=== PATIENT | male | born 1950 | race Caucasian/White ===

== ENCOUNTER 2020-06-04 08:04 | Outpatient (REF) | payer MEDICARE, SELFPAY ==
[2020-06-04 11:27] LABS: MANUAL DIFF FLAG NO
[2020-06-04 11:37] LABS: Basophils Percent Auto 0.6 % (0-2); Eosinophils Absolute Auto 0.1 X10*3/uL (0.0-0.4); Eosinophils Percent Auto 2.2 % (0-4); Hematocrit 46.4 % (42-52); Hemoglobin 15.5 g/dl (14.0-18.0); Imm Gran Abs Auto 0.01 X10*3/uL (0.00-0.03); Imm Gran Pct Auto 0.2 % (0.0-0.4); Lymphocytes Absolute Auto 1.7 X10*3/uL (1.2-4.9); Lymphocytes Percent Auto 33.9 % (20-40); Mean Corpuscular HGB Conc 33.4 g/dl (31.0-36.0); Mean Corpuscular Hemoglobin 30.9 pg (27.0-33.0); Mean Corpuscular Volume 92.4 fL (80-98); Monocytes Absolute Auto 0.5 X10*3/uL (0.1-1.2); Monocytes Percent Auto 9.6 % (2-11); Neutrophils Absolute Auto 2.6 X10*3/uL (2.0-8.3); Neutrophils Percent Auto 53.5 % (45-73); Platelet Count 286 X10*3/uL (160-400); Red Blood Count 5.02 X10*6/uL (4.60-5.80); Red Cell Distribution Width 13.2 % (11.0-16.0); White Blood Count 4.9 X10*3/uL (4.8-10.8)
[2020-06-04 11:57] LABS: Alanine Aminotransferase 27 U/L (0-40); Albumin Level 4.5 g/dL (3.5-5.0); Alkaline Phosphatase 52 U/L (39-117); Anion Gap 16 (12-20); Aspartate Amino Transferase 26 U/L (5-37); Bilirubin Total 1.7 mg/dL (0.0-1.0); Blood Urea Nitrogen 13 mg/dL (9-16); Calcium 9.2 mg/dL (8.4-10.2); Carbon Dioxide 27 mmol/L (22-29); Chloride 103 mmol/L (96-108); Cholesterol 158 mg/dL; Estimated Glomerular Filt Rate > 60; Glucose Fasting 105 mg/dL (60-99); HDL Cholesterol 46 mg/dL; LDL Cholesterol Calculated 95 mg/dl; Potassium 4.6 mmol/L (3.3-5.1); Sodium 141 mmol/L (135-145); Total Protein 6.7 g/dL (6.5-8.0); Triglycerides 89 mg/dL
[2020-06-04 12:09] LABS: Thyroid Stimulating Hormone 0.89 uIU/mL (0.32-4.0); Vitamin D 25-OH Total 20.2 ng/mL (>30)
== END 2020-06-04 08:05 | disposition home or self-care (01) ==
LOC: HO.HMGCLDS 08:04
PROVIDERS: PCP Internal Medicine; Visit Provider Internal Medicine
DX: Z00.00 Encounter for general adult medical examination without abnormal findings (principal); E55.9 Vitamin D deficiency, unspecified; E78.00 Pure hypercholesterolemia, unspecified
CPT/HCPCS: 36415; 80053; 80061; 82306; 84443; 85025

== ENCOUNTER 2021-03-07 10:21 | Outpatient (REF) | payer MEDICARE, SELFPAY ==
[2021-03-07 10:41] LABS: COVID-19 Test Positive (Negative)
== END 2021-03-07 10:22 | disposition home or self-care (01) ==
LOC: HO.LAB 10:21
PROVIDERS: Visit Provider Internal Medicine
DX: Z20.822 Contact with and (suspected) exposure to COVID-19 (principal)
CPT/HCPCS: 87635; C9803

== ENCOUNTER 2021-05-17 13:02 | Inpatient (IN) | payer MEDICARE, SELFPAY ==
[2021-05-17] VITALS (15 sets, daily range): BP systolic 120–160; BP diastolic 53–90; PULSE 60–82; RESP 12–24; TEMP 36.1–37.2; O2SAT 95–100; BMI 29.3; BMI 27.7
--- NOTE | ~2021-05-17 | MR_ITS ---
MRI OF THE BRAIN WITHOUT IV CONTRAST INDICATION: Cerebellar stroke. COMPARISON: Head and neck CTA and head CT 05/17/2021. TECHNIQUE: Multiplanar multisequence MR imaging of the brain was obtained without IV contrast. FINDINGS: There are several small acute infarcts within the right cerebellar hemisphere. There is no mass effect and there is no hemorrhagic transformation. There is no hydrocephalus, extra-axial surface collection, or herniation. The major flow voids at the skull base are preserved. There is no intracranial hemorrhage on the gradient recalled echo acquisition. The midline structures are normal. The cerebellar tonsils are normally positioned. The craniocervical junction is normal. Osseous marrow signal intensity is homogenous. The visualized soft tissues are unremarkable. MR/MR head/brain wo con IMPRESSION: - There are several small acute infarcts within the right cerebellar hemisphere. There is no mass effect and there is no hemorrhagic transformation. - Otherwise unremarkable MRI of the brain. Findings discussed with Dr. Kern at 3:04 PM on 05/17/2021.
--- NOTE | ~2021-05-17 | CT_ITS ---
CT ANGIOGRAM NECK WITH CONTRAST CT ANGIOGRAM BRAIN WITH CONTRAST CLINICAL INFORMATION: Acute vertigo. Had hand weakness. COMPARISON: CT head same day. TECHNIQUE: Test bolus sequences followed by intravenous administration 70 mL of Omnipaque 350. Helical imaging was performed in the axial plane from the thoracic inlet to the skull vertex. Delayed postcontrast imaging of the head was also performed. The data was processed at the orthopaedic technologist workstation for generation of MIP sequences. Angled MIPs and volume rendered reformatted images were also generated at an offline 3D workstation under concurrent supervision. Stenoses are assessed in accordance with NASCET criteria unless otherwise indicated. This CT examination was performed using dose optimization techniques as appropriate, variously including the following: *Automated exposure control *Adjustment of mA and/or kV according to patient size (this includes techniques or standardized protocols for targeted exams where dose is matched to indication/reason for exam; i.e. extremities or head) *Use of iterative reconstruction technique FINDINGS: BRAIN: Possible small acute infarct of indeterminate age within the right cerebellum on image 46 of series 5 and can be more definitively assessed with MRI. [There is no intracranial hemorrhage, hydrocephalus, extra-axial surface collection, midline shift, or other herniation pattern. Jarrett to white matter differentiation is diffusely maintained without evidence of an evolved acute territorial infarct. The basilar cisterns are preserved. No significant soft tissue abnormality. No acute osseous abnormality. The paranasal sinuses and the mastoid air cells are well aerated.] CERVICAL SOFT TISSUES AND LUNG APICES: Calcified tonsilloliths within the palatine tonsils bilaterally. No significant soft tissue findings within the neck. NECK CTA: [There is a classic 3 vessel configuration of the aortic arch. Proximal arch vessels are non-stenotic. The vertebral arteries are codominant. No significant ostial stenosis is visualized on either side. Both vertebral arteries are widely patent throughout their extracranial cervical course. Both common carotid arteries are normal in course and caliber.] There is atherosclerotic calcification involving the carotid bifurcations bilaterally without significant stenosis involving the proximal internal carotid arteries on either side. BRAIN CTA: [There is normal opacification of major intracranial arteries. No focal flow-limiting stenosis nor discrete proximal large artery occlusion. No aneurysm. Timing of the contrast bolus allows assessment of the major dural venous sinuses, which all opacify normally] CT/CT angio head neck stroke IMPRESSION: - Possible small acute infarct of indeterminate age within the right cerebellum on image 46 of series 5 and can be more definitively assessed with MRI. - No significant arterial stenoses and no acute arterial occlusions within the head or neck. CTA result discussed with Dr. Kern at 1:45 PM on 05/17/2021.
--- NOTE | ~2021-05-17 | CT_ITS ---
EXAMINATION: CT HEAD WITHOUT CONTRAST CLINICAL INFORMATION: Post CTA. COMPARISON: MRI brain 05/17/2021. TECHNIQUE: Contiguous axial imaging was performed from the skull base to vertex without intravenous administration of contrast. This CT examination was performed using dose optimization techniques as appropriate, variously including the following: *Automated exposure control *Adjustment of mA and/or kV according to patient size (this includes techniques or standardized protocols for targeted exams where dose is matched to indication/reason for exam; i.e. extremities or head) *Use of iterative reconstruction technique DLP: 649 mGy-cm FINDINGS: No acute intracranial hemorrhage is noted. Focal hypoattenuation is present in the inferior right cerebellar hemisphere corresponding to an area of acute infarct noted on the comparison MRI of 05/17/2021. The ventricles and sulci are normal in size and configuration. No intracranial tumors are visualized. No new intracranial infarcts are noted compared with MRI of the brain 05/17/2021. The orbits and globes are normal in appearance. No significant opacification of the visualized paranasal sinuses, mastoid air cells or middle ear cavities. CT/CT head/brain wo con IMPRESSION: *No acute intercranial hemorrhage. *Acute infarcts within the right cerebellar hemisphere corresponding to findings noted on the comparison MRI 05/17/2021. No interval new acute infarcts compared with 05/17/2021.
--- NOTE | ~2021-05-17 | CT_ITS ---
EXAMINATION: CT HEAD WITHOUT CONTRAST (STROKE PROTOCOL) CLINICAL INFORMATION: Stroke protocol. Left hand weakness and dizziness. COMPARISON: None TECHNIQUE: Contiguous axial imaging was performed from the skull base to vertex without intravenous administration of contrast. This CT examination was performed using dose optimization techniques as appropriate, variously including the following: *Automated exposure control *Adjustment of mA and/or kV according to patient size (this includes techniques or standardized protocols for targeted exams where dose is matched to indication/reason for exam; i.e. extremities or head) *Use of iterative reconstruction technique DLP: 676 mGy-cm FINDINGS: There is no intracranial hemorrhage, hematoma, or extra-axial fluid collection. The ventricles are normal in size. There is no hydrocephalus, edema, or mass effect. The adams-white matter differentiation appears symmetric. There is no acute infarct or mass lesion. The calvarium appears intact. There is no pneumocephalus or orbital emphysema. The visualized sinuses and middle ears and mastoid air cells show no significant mucosal thickening. There are no air-fluid levels. CT/CT head for stroke IMPRESSION: No acute intracranial process seen. This critical result was discussed with Dr. Yang Kern at 1:27 PM on 05/17/2021. It was ascertained that the content and urgency of the report was understood at the time of direct communication.
--- NOTE | 2021-05-17 13:03 | ED_ITS ---
HPI - Neuro Symptoms/Deficit General Chief Complaint: Dizziness Stated Complaint: ?stroke Time Seen by Provider: 05/17/21 13:52 Source: EMS Mode of arrival: EMS Limitations: no limitations History of Present Illness HPI Narrative: Patient had 45 minutes of dizziness and vomiting in the ambulance the patient had left arm ??weakness with question of slurred speech according to EMS. Patient states his arm was cramping not weak. I met the patient upon arrival Onset (ago): minute(s) (45) History of same: No Severity: moderate On Anticoagulants: No Associated symptoms: nausea/vomiting Related Data Allergies Allergy/AdvReac Type Severity Reaction Status Date / Time No Known Allergies Allergy Verified 05/17/21 13:05 Review of Systems Constitutional: Constitutional: Reports no additional constitutional complaints Eyes: Eyes: Reports no additional eye complaints ENT: Denies dizziness Cardiovascular: Cardiovascular: Reports no additional cardiovascular complaints Respiratory: Respiratory: Reports as per HPI Gastrointestinal: Gastrointestinal: Reports no additional gastrointestinal complaints Musculoskeletal: Musculoskeletal: Reports no additional musculoskeletal complaints Integumentary/Breasts: Skin/Breast: Denies rash Neurologic: Reports system reviewed and no additional complaints, except as documented, Denies dizziness and Denies Sensory deficit (Neuro) Psychiatric: Psychiatric: Denies anxiety PMF Past Medical History Medical History High cholesterol Social History Social History Alcohol intake: current Alcohol intake frequency: holidays/special occasions only Alcohol type: beer Patient Tobacco Use Status: Never used Tobacco Use of substances other than those prescribed or required for medical reasons: No Advance Directives: No Advance Directives Information Provided: No Physical Exam Vital Signs: Vital Signs: Last Vital Signs Temp 97 F 05/17/21 13:19 Pulse 71 05/17/21 15:17 Resp 14 05/17/21 15:17 BP 143/80 H 05/17/21 15:17 Pulse Ox 99 05/17/21 15:17 BMI result Body Mass Index 29.3 Const: Other: diaphoretic vomiting, looking ill Nutritional Appearance: average body habitus Orientation/consciousness: oriented to person and patient oriented x3 L imitations: no limitations HEENT: Head: Yes normal to inspection Ears: external ears normal General nose exam: Normal external nose present Mouth: Normal oral and palatal mucosa present and oropharynx normal Throat: Yes posterior oropharynx normal Eyes: General: appearance normal, both eyes and all related structures Neck: Other: supple Neck: Yes normal visual inspection Chest: Chest palpation & inspection: normal inspection of the chest Resp: Auscultation: clear to auscultation bilaterally Cardio: Jugular venous distension: no JVD Rate: regular rate Rhythm: regular rhythm Heart sounds: S1 normal heart sound present and S2 normal heart sound present GI: Inspection: Yes normal to inspection Palpation (GI): Soft to palpation, nontender and No hepatosplenomegaly present Auscultation: normal bowel sounds : General: Yes no CVA tenderness Back/Spine/Pelvis: Back: no CVA tenderness Skin: General skin exam: no rashes or lesions noted Neuro: General: oriented to person and patient oriented x3 Cranial nerves: Yes CN's II-XII intact bilaterally Motor exam (neuro): 5/5 motor strength present throughout Sensory Exam: No Sensory deficit (Neuro) Extrem: General: Yes normal to inspection Psych: Appearance: grossly normal Course Reevaluation(s) Reevaluation #1: I received verbal consent for tpa for cerebellar strokes, the patient consented verbal understanding for tpa Time: 14:50 Reevaluation #2: Initial CT was negative, CT angio showed question of cerebellar infarct, MRI showed acute cerebellar strokes Time: 15:17 Reevaluation #3: unsure the reason around cpk of 5200, no injury no prior history of rhabdo Time: 15:40 [facility] - Neuro Symptoms/Deficit Lab Data Result diagrams: 05/17/21 14:01 05/17/21 14:01 Labs: Lab Results 05/17/21 05/17/21 05/17/21 Range/Units 13:06 13:07 14:01 WBC 9.6 (4.8-10.8) X10*3/uL RBC 5.01 (4.60-5.80) X10*6/uL Hgb 15.5 (14.0-18.0) g/dl Hct 44.7 (42.0-52.0) % MCV 89.2 (80.0-98.0) fL MCH 30.9 (27.0-33.0) pg MCHC 34.7 (31.0-36.0) g/dl RDW 12.9 (11.0-16.0) % Plt Count 223 (160-400) X10*3/uL MPV 8.4 L (9.4-12.4) fL Immature Gran % (Auto) 0.4 (0.0-0.4) % Neut % (Auto) 84.5 H (45-73) % Lymph % (Auto) 10.1 L (20-40) % Bucks % (Auto) 4.5 (2-11) % Eos % (Auto) 0.3 (0-4) % Baso % (Auto) 0.2 (0-2) % Lymph # (Auto) 1.0 L (1.2-4.9) X10*3/uL Bucks # (Auto) 0.4 (0.1-1.2) X10*3/uL Eos # (Auto) 0.0 (0.0-0.4) X10*3/uL Baso # (Auto) 0.0 (0.0-0.2) X10*3/uL Abs Immat Gran (auto) 0.04 H (0.00-0.03) X10*3/uL Absolute Neuts (auto) 8.1 (2.0-8.3) x10*3/uL Absolute Nucleated RBC 0.000 (0.0-0.012) X10*3/uL Nucleated RBC % (auto) 0.0 (0.0-0.2) /100WBC PT (9.9-13.0) SEC Whole Blood PT 12.7 (11.1-13.5) sec INR (0.9-1.1) Whole Blood INR 1.1 (0.9-1.1) APTT (24.1-38.0) SEC Sodium (135-145) mmol/L Potassium (3.3-5.1) mmol/L Chloride (96-108) mmol/L Carbon Dioxide (22-29) mmol/L Anion Gap (12-20) BUN (9-16) mg/dL Creatinine (0.5-1.4) mg/dL Estim Creat Clear Calc Estimated GFR POC Glucose 117 H (60-115) mg/dL Random Glucose (60-115) mg/dL Calcium (8.4-10.2) mg/dL Total Creatine Kinase (38-174) U/L Troponin I High Sens (<3.5-35.0) ng/L 05/17/21 05/17/21 05/17/21 Range/Units 14:01 14:01 14:01 WBC (4.8-10.8) X10*3/uL RBC (4.60-5.80) X10*6/uL Hgb (14.0-18.0) g/dl Hct (42.0-52.0) % MCV (80.0-98.0) fL MCH (27.0-33.0) pg MCHC (31.0-36.0) g/dl RDW (11.0-16.0) % Plt Count (160-400) X10*3/uL MPV (9.4-12.4) fL Immature Gran % (Auto) (0.0-0.4) % Neut % (Auto) (45-73) % Lymph % (Auto) (20-40) % Bucks % (Auto) (2-11) % Eos % (Auto) (0-4) % Baso % (Auto) (0-2) % Lymph # (Auto) (1.2-4.9) X10*3/uL Bucks # (Auto) (0.1-1.2) X10*3/uL Eos # (Auto) (0.0-0.4) X10*3/uL Baso # (Auto) (0.0-0.2) X10*3/uL Abs Immat Gran (auto) (0.00-0.03) X10*3/uL Absolute Neuts (auto) (2.0-8.3) x10*3/uL Absolute Nucleated RBC (0.0-0.012) X10*3/uL Nucleated RBC % (auto) (0.0-0.2) /100WBC PT 12.4 (9.9-13.0) SEC Whole Blood PT (11.1-13.5) sec INR 1.1 (0.9-1.1) Whole Blood INR (0.9-1.1) APTT 27.1 (24.1-38.0) SEC Sodium 138 (135-145) mmol/L Potassium 4.7 (3.3-5.1) mmol/L Chloride 106 (96-108) mmol/L Carbon Dioxide 21 L (22-29) mmol/L Anion Gap 16 (12-20) BUN 18 H (9-16) mg/dL Creatinine 1.08 (0.5-1.4) mg/dL Estim Creat Clear Calc 69.4 Estimated GFR > 60 POC Glucose (60-115) mg/dL Random Glucose 116 H (60-115) mg/dL Calcium 9.4 (8.4-10.2) mg/dL Total Creatine Kinase 5261 H (38-174) U/L Troponin I High Sens 5.8 (<3.5-35.0) ng/L NIH Stroke Scale Internal: Initial- Upon Arrival Level of Consciousness: Alert Level of Consciousness Questions: Answers both questions correctly Level of Consciousness Commands: Performs both tasks correctly Best Gaze: Normal Visual: No visual loss Facial Palsy: Normal Motor Arm (Right): No drift Motor Arm (Left): No drift Motor Leg (Right): No drift Motor Leg (Left): No drift Limb Ataxia: Absent Sensory: Normal Best Language: No aphasia Dysarthia: Normal Extinction and Inattention: No abnormality Score: 0 Critical Care Time Critical Care Time Attestation: I spent 40 minutes of critical care, with interventions, assessments, speaking to patient, consultants, and family. Discharge Plan Discharge Clinical Impression: Cerebrovascular accident Patient Disposition: Admitted As Inpatient
--- NOTE | 2021-05-17 13:05 | ECG_ITS ---
Test Reason : DIZZYNESS Blood Pressure : / mmHG Vent. Rate : 066 BPM Atrial Rate : 066 BPM P-R Int : 156 ms QRS Dur : 100 ms QT Int : 442 ms P-R-T Axes : 062 049 045 degrees QTc Int : 463 ms Normal sinus rhythm Normal ECG When compared with ECG of 23-JUN-2003 07:25, QT has lengthened Referred By: Yang Kern Electronically Signed By:NICOLE CHAVARRIA
[2021-05-17 13:10] LABS: Prothrombin Time Whole Bld POC 12.7 sec (11.1-13.5); ~PT, ~INR - Anti Coag Clinic 1.1 (0.9-1.1)
[2021-05-17 13:12] LABS: Glucose, Whole Blood 117 mg/dL (60-115)
[2021-05-17] MEDS: iohexoL 350 MG/ML 100 ML INFUS..BTL IV (13:37)
[2021-05-17 14:05] LABS: MANUAL DIFF FLAG NO
[2021-05-17 14:09] LABS: Basophils Percent Auto 0.2 % (0-2); Eosinophils Percent Auto 0.3 % (0-4); Hematocrit 44.7 % (42.0-52.0); Hemoglobin 15.5 g/dl (14.0-18.0); Imm Gran Abs Auto 0.04 X10*3/uL (0.00-0.03); Imm Gran Pct Auto 0.4 % (0.0-0.4); Lymphocytes Percent Auto 10.1 % (20-40); Mean Corpuscular HGB Conc 34.7 g/dl (31.0-36.0); Mean Corpuscular Hemoglobin 30.9 pg (27.0-33.0); Mean Corpuscular Volume 89.2 fL (80.0-98.0); Mean Platelet Volume 8.4 fL (9.4-12.4); Monocytes Absolute Auto 0.4 X10*3/uL (0.1-1.2); Monocytes Percent Auto 4.5 % (2-11); Neutrophils Absolute Auto 8.1 x10*3/uL (2.0-8.3); Neutrophils Percent Auto 84.5 % (45-73); Platelet Count 223 X10*3/uL (160-400); Red Blood Count 5.01 X10*6/uL (4.60-5.80); Red Cell Distribution Width 12.9 % (11.0-16.0); White Blood Count 9.6 X10*3/uL (4.8-10.8)
[2021-05-17 14:15] LABS: INTERNATIONAL NORM RATIO 1.1 (0.9-1.1); Prothrombin Time 12.4 SEC (9.9-13.0)
[2021-05-17 14:17] LABS: Partial Thromboplastin Time 27.1 SEC (24.1-38.0)
[2021-05-17 14:18] LABS: Stroke Lab Use COMPLETE
[2021-05-17 14:30] LABS: Troponin-I High Sensitivity 5.8 ng/L (<3.5-35.0)
[2021-05-17 14:47] LABS: Anion Gap 16 (12-20); Blood Urea Nitrogen 18 mg/dL (9-16); Calcium 9.4 mg/dL (8.4-10.2); Carbon Dioxide 21 mmol/L (22-29); Chloride 106 mmol/L (96-108); Creatinine Clr Calc Pharmacy 69.4; Estimated Glomerular Filt Rate > 60; Glucose Random 116 mg/dL (60-115); Potassium 4.7 mmol/L (3.3-5.1); Sodium 138 mmol/L (135-145)
--- NOTE | 2021-05-17 15:00 | PC.NURSE ---
pt reports that while playing golf this afternoon he became dizzy and fell to the floor. he reports cramping in his left arm, he denies weakness. pt alert and oriented x4, vss, denies pain. cta showed sign of stroke, tpa protocol initiated.
--- NOTE | 2021-05-17 15:00 | PC.NURSE ---
tpa bolus given at 1449. pt alert and oriented, vss, pt denies pain. pt denies headache, dizziness, sob. no complaints. pt tolerating well. will continue to monitor.
--- NOTE | 2021-05-17 15:44 | MHC.STROKE ---
Addendum entered by Lilly Hammer RN 05/18/21 13:51: 1315 I RECEIVED A CALL FROM DR GALAENO INQUIRING IF PATIENT CAN BE DISCHARGED FROM THE STROKE SERVICE [facility]ERSPECTIVE. I DID CONTACT DR. GONZALES AND REVIEW THIS. PATIENT CAN BE DISCHARGE AROUND OR AFTER 3PM TODAY. PATIENT WAS CLEARED BY PHYSICAL THERAPY, HE DID NOT HAVE HIS ECHO WITH BUBBLE AND THAT CAN BE ARRANGED FOR THIS WEEK. HE CAN BEGIN ASPIRIN 81MG TODAY AFTER 3PM. DO NOT TAKE STATIN AT THIS TIME. FOLLOW UP WITH PCP, ALSO MAKE AN APPOINTMENT TO FOLLOW UP WITH DR. GONZALES. I WILL CALL AND FOLLOW UP WITH THE PATIENT ON THURSDAY. Addendum entered by Lilly Hammer RN 05/17/21 17:09: REVIEWED THIS PATIENT WITH DR. GALEANO. HE SUSPECTS THE STATIN MIGHT HAVE CONTRIBUTED TO THE ELEVATED CPK, I DID NOTIFY DR. SMILEY, THE PHARMACY, AND NURSE CARING FOR THE PATIENT. SHE WILL ADD THIS TO HIS ALLERGY. PATIENT SHOULD AVOID ALL STATINS PER DR GALEANO. Original Note: EMS PRE-NOTIFIED FOR ACUTE STROKE ALERT AT 1258, ARRIVED AT 1302. C/O SUDDEN ONSET OF SEVERE DIZZINESS WITH VOMITING, UNSTEADY GAIT. WHILE GOLFING. HIS FRIENDS CALLED 911. EXAMINED BY DR SMILEY, NIHSS = 0, STAT CT HEAD AND CTA H/N, NO BLEED, NO LVO SEE REPORT. DOOR-TO-CT = [address] GONZALES, STAT MRI ORDERED. DR GONZALES IN MRI AND +DWI MULTIPLE AREAS IN RIGHT CEREBELLAR. ADVISED TO GIVE TPA-ALTEPLASE WITHIN THE WINDOW FOR TPA. PATIENT AND FAMILY ADVISED AND AGREE. IV BOLUS DOSE GIVEN AT 1449. IIUS-ZY-EOVTDR WAS 107 MINUTES. OVER THE 30, 45, AND 60 MINUTE WINDOW DUE TO NIHSS = 0 AND CARE TEAM NEEDING A MRI TO DETERMINE ELIGIBILITY. BOLUS DOSE FOLLOWED BY INFUSION DOSE FOR 1 HR AND THEN IVF. SWALLOW SCREEN FAILED BASED ON PROTOCOL TO KEEP NPO FOR 6 HOURS, A SECOND SCREEN CAN BE DONE IN ICU. I PROVIDE STROKE EDUCATION, I REVIEWED THE MRI SCAN IMAGES WITH THE KRISTY. I SPOKE WITH THE ENTIRE FAMILY. I ANSWERED ALL OF THEIR QUESTIONS. CALLED ICU AND CORE MAKER TO ALERT THEM TO THIS ADMISSION. DR. GALEANO IS COVERING THE ICU.
--- NOTE | 2021-05-17 15:47 | PHA.MEDREC ---
Pharmacy Consult ? Medication Reconciliation Pharmacy has completed the medication reconciliation.
--- NOTE | 2021-05-17 16:24 | PM.NEUROCN ---
History of Present Illness Data of Consult Service Date: 05/17/21 Primary Care Provider: Esvin Gomes MD, DO HPI Reason for consult: dizziness Acute onset vertigo and vomiting in healthy pt with hyperlipidemia on Simvastatin. Sx hav eresolved. NRI confirms small right cerebaellar hemiasphiric and posterior vermian acute infarct. CTA normal. TPA given after MRI confirmation at 2. 5 hrs. Feels normal. Review of Systems Constitutional: Constitutional: Reports no additional constitutional complaints Eyes: Eyes: Reports no additional eye complaints ENT: Denies dizziness Cardiovascular: Cardiovascular: Reports no additional cardiovascular complaints Respiratory: Respiratory: Reports as per HPI Gastrointestinal: Gastrointestinal: Reports no additional gastrointestinal complaints Musculoskeletal: Musculoskeletal: Reports no additional musculoskeletal complaints Integumentary/Breasts: Skin/Breast: Denies rash Neurologic: Reports system reviewed and no additional complaints, except as documented, Denies dizziness and Denies Sensory deficit (Neuro) Psychiatric: Psychiatric: Denies anxiety PMFSH Past Medical History Medical History High cholesterol Social History Social History Alcohol intake: current Alcohol intake frequency: holidays/special occasions only Alcohol type: beer Patient Tobacco Use Status: Never used Tobacco Use of substances other than those prescribed or required for medical reasons: No Advance Directives: No Advance Directives Information Provided: No Meds Allergies Allergy/AdvReac Type Severity Reaction Status Date / Time No Known Allergies Allergy Verified 05/17/21 13:05 Active Medications: Current Medications Pharmacy Consult (Consult Rx Perform Med Rec) 1 each MISCELLANE ONCE PRN PRN Reason: Consult order Home Medications Medication Instructions Recorded Confirmed Last Taken Type cholecalciferol (vitamin D3) 25 25 mcg PO DAILY 05/17/21 05/17/21 05/16/21 History mcg (1,000 unit) tablet (Vitamin D3) simvastatin 20 mg tablet 1 tab PO BEDTIME 05/17/21 05/17/21 05/16/21 History Physical Exam Vital Signs: Vital Signs: Last Vital Signs Temp 97 F 05/17/21 13:19 Pulse 82 05/17/21 15:57 Resp 13 05/17/21 15:57 BP 160/90 H 05/17/21 15:57 Pulse Ox 97 05/17/21 15:57 BMI result Body Mass Index 29.3 Const: Other: diaphoretic vomiting, looking ill Nutritional Appearance: average body habitus Orientation/consciousness: oriented to person and patient oriented x3 Limitations: no limitations HEENT: Head: Yes normal to inspection Ears: external ears normal General nose exam: Normal external nose present Mouth: Normal oral and palatal mucosa present and oropharynx normal Throat: Yes posterior oropharynx normal Eyes: General: appearance normal, both eyes and all related structures Neck: Other: supple Neck: Yes normal visual inspection Chest: Chest palpation & inspection: normal inspection of the chest Resp: Auscultation: clear to auscultation bilaterally Cardio: Jugular venous distension: no JVD Rate: regular rate Rhythm: regular rhythm Heart sounds: S1 normal heart sound present and S2 normal heart sound present GI: Inspection: Yes normal to inspection Palpation (GI): Soft to palpation, nontender and No hepatosplenomegaly present Auscultation: normal bowel sounds : General: Yes no CVA tenderness Back/Spine/Pelvis: Back: no CVA tenderness Skin: General skin exam: no rashes or lesions noted Neuro: Other: Normal exam General: oriented to person and patient oriented x3 Cranial nerves: Yes CN's II-XII intact bilaterally Motor exam (neuro): 5/5 motor strength present throughout Sensory Exam: No Sensory deficit (Neuro) Extrem: General: Yes normal to inspection Psych: Appearance: grossly normal Results Labs CBC & Chem 7: 05/17/21 14:01 05/17/21 14:01 Labs: Short CBC 05/17/21 Range/Units 14:01 WBC 9.6 (4.8-10.8) X10*3/uL Hgb 15.5 (14.0-18.0) g/dl Hct 44.7 (42.0-52.0) % Plt Count 223 (160-400) X10*3/uL BMP 05/17/21 14:01 Sodium 138 Potassium 4.7 Chloride 106 Carbon Dioxide 21 L BUN 18 H Creatinine 1.08 Calcium 9.4 Cardiac Enzymes 05/17/21 Range/Units 14:01 Total Creatine Kinase 5261 H (38-174) U/L Assessment and Plan (1) New cerebellar infarct: Status: Acute s/p TPA . Full recovery. Recom. ASA 81mg. Continue Simvastatin. Cardiac monitoring. Echo and THERESA. Can be discharged in 24 -48 hrs if stable an dget w/u as OP Procedures Date of Service Date of Service: 05/17/21
--- NOTE | 2021-05-17 17:03 | P.CONCC_ITS ---
History of Present Illness Data of Consult Service Date: 05/17/21 Requesting physician: Yang Kern Primary Care Provider: Esvin Gomes MD, DO HPI I was called by Dr. Kern about Mr. Guzman who presented to the ED with a stroke. This is a remote note.? The patient is a 70 yo M with PMHx of hypercholesterolemia and obesity. The patient was playing golf today and at 12:15 had sudden onset of dizziness and vomiting w diaphoresis.? He was brought to the hospital about 45 min later.? In ED, no gross neuro symptoms:? No weakness, no speech difficulties.? Head CT negative.? CTA showed a possible small acute infarct of indeterminate age within the right cerebellum.? Therefore underwent MRI which showed several small acute infarcts within the right cerebellar hemisphere; no mass effect and no hemorrhagic transformation. The patient was therefore given tPA.? He will be admitted to ICU for overnight monitoring.? Hemod and resp status stable with Sat 100% on room air. Only other notable finding was a CPK of 5200.? Troponins and EKG negative.? No hx compatible with rhabdomyolysis.? But the patient is on simvastatin 20mg qhs. IMPRESSION: 1. Mild obesity 2. Hypercholesterolemia 3. Cerebellar stroke 4. Adverse reaction to simvastatin.? The patient should probably never take statins again.? D/W Lilly Hammer.? She will notify the ED and pharmacy. D/W Dr. Kern. Time:? 30+ min. [facility] Past Medical History Medical History High cholesterol Social History Social History Alcohol intake: current Alcohol intake frequency: holidays/special occasions only Alcohol type: beer Patient Tobacco Use Status: Never used Tobacco Use of substances other than those prescribed or required for medical reasons: No Advance Directives: No Advance Directives Information Provided: No Meds Allergies Allergy/AdvReac Type Severity Reaction Status Date / Time No Known Allergies Allergy Verified 05/17/21 13:05 Active Medications: Current Medications Ondansetron HCl (Ondansetron Hcl 4 Mg/2 Ml Vial) 4 mg IVPUSH Q8H PRN PRN Reason: Nausea and Vomiting Pharmacy Consult (Consult Rx Perform Med Rec) 1 each MISCELLANE ONCE PRN PRN Reason: Consult order Sodium Chloride (0.9 % Sodium Chloride Flush 3 Ml Syringe) 3 ml IVFLUSH QSHIFT [facility] Home Medications Medication Instructions Recorded Confirmed Last Taken Type cholecalciferol (vitamin D3) 25 25 mcg PO DAILY 05/17/21 05/17/21 05/16/21 History mcg (1,000 unit) tablet (Vitamin D3) simvastatin 20 mg tablet 1 tab PO BEDTIME 05/17/21 05/17/21 05/16/21 History Physical Exam Vital Signs: Vital Signs: Last Vital Signs Temp 98.1 F 05/17/21 16:56 Pulse 72 05/17/21 16:56 Resp 14 05/17/21 16:56 BP 129/83 05/17/21 16:56 Pulse Ox 97 05/17/21 16:56 BMI result Body Mass Index 29.3 Results Labs CBC & Chem 7: 05/17/21 14:01 05/17/21 14:01 Labs: Short CBC 05/17/21 Range/Units 14:01 WBC 9.6 (4.8-10.8) X10*3/uL Hgb 15.5 (14.0-18.0) g/dl Hct 44.7 (42.0-52.0) % Plt Count 223 (160-400) X10*3/uL BMP 05/17/21 14:01 Sodium 138 Potassium 4.7 Chloride 106 Carbon Dioxide 21 L BUN 18 H Creatinine 1.08 Calcium 9.4 Cardiac Enzymes 05/17/21 Range/Units 14:01 Total Creatine Kinase 5261 H (38-174) U/L
[2021-05-17 17:20] LABS: COVID-19 Test Negative (Negative)
--- NOTE | 2021-05-17 17:47 | PC.NURSE ---
this ghost writer called ICU to give report on pt. nurse taking care of urgent situation at this time and will call back. will follow-up
--- NOTE | 2021-05-17 18:26 | PC.NURSE ---
report given to CARLA Mcconnell. pt will be transferred to room 260 by this RN and licensed guide.
--- NOTE | 2021-05-17 18:27 | MHC.CM.PN ---
CM met with patient and . S/P stroke, TPA. Alert and oriented. SUBRAMANIAN. IMM 05/17. HCP not on file. Copy requested. HCP/ Kimber richard ([phone]). Vacc/boosted with Pf[employer]. No DME or Services. Was golfing today with friends with onset of stroke. Lives with . D/C plan: home without services. Transportation home by . CM will follow for d/c needs.
--- NOTE | 2021-05-17 21:12 | PC.NURSE ---
PT TO ICU AT 1900 IN NO ACUTE DISTRESS. PT SAT ON EDGE OF ER STRETCHER AND THEN STOOD AND PIVOTED TO LOWER SELF IN BED. NO DIZZINESS WITH ACTIVITY. PT DENIES COMPLAINTS. SEPIDEH MONET, PAC IN TO EXAMINE PT AND ADMISSION ASSESSMENT PERFORMED BY THIS RN. NO NEUROLOGICAL DEFICIT NOTED. BP STABLE 130/63. MONITOR SHOWS NSR, RATE 60'S, NO ECTOPY. PT ORIENTED TO UNIT AND UNIT ROUTINE. NO SIGNS AND SYMPTOMS OF BLEEDING S/P TPA.
[2021-05-17 21:26] LABS: Glucose, Whole Blood 128 mg/dL (60-115)
[2021-05-17] MEDS: 0.9 % Sodium Chloride Flush 3 ML SYRINGE IVFLUSH (23:52)
[2021-05-17] MEDS: 0.9 % Sodium Chloride 1,000 ML 75 ML IVCONT (23:52)
--- NOTE | 2021-05-17 23:55 | P.HPCC_ITS ---
History of Present Illness Date of Service: 05/17/21 Attending physician on admission: Shukri Hollingsworth Chief Complaint: Acute Cerebellar Stroke HPI: ?Patient with underlying history of hyperlipidemia and no other past medical history, presented to the emergency room this afternoon as the patient was playing golf and suddenly felt significantly dizzy to the point that he had to sit on the ground, every time the patient tried to get up, he was not able as he had no balance; he was assisted by his friends who gave him water but vomited it all.? Initially he did not think much of it until he felt a sensation of campiness, numbness of his left hand without any weakness.? He denies any visual disturbance, headache, chest pain, shortness of breath, arm or jaw pain, abdominal pain, arm or leg weakness. Patient was quickly transported to the emergency room where he was evaluated for possibility of stroke, head CT showed no acute hemorrhage then a head CT/neck with contrast and MRI showed - Possible small acute infarct of indeterminate age within the right cerebellum on image 46 of series 5 and can be more definitively assessed with MRI.- No significant arterial stenoses and no acute arterial occlusions within the head or neck; the the decision to administer tPA was made upon consulting with Neurology and given at 1441 pm.? Subsequent MRI showed: - There are several small acute infarcts within the right cerebellar hemisphere. There is no mass effect and there is no hemorrhagic transformation. - Otherwise unremarkable MRI of the brain. At this point the patient's symptoms have all resolved and he denies any other symptomatology including the numbness sensation of his left hand.? To the best of his knowledge, he has not had any tinnitus recently, he does not have any in ner ear disease.? He is vaccinated for COVID with 3 doses and get about 3 months ago he did get COVID; now his covid test is negative. ROS:? As above, in addition the patient denies any history of headaches, no prior history of stroke or seizures, denies any visual auditory issues, no problems swallowing, speaking or thinking, denies thyroid problems, no history of coronary artery disease, chest pain, palpitations, cough, sputum production, shortness of breath, pneumonia, bronchitis, no prior history of abdominal pain, melena, hematochezia, dysuria, polyuria, polydipsia, polyphagia, hematuria, prostate issues, no leg swelling and paresthesias, no history of DVT or PE, recent traveling, other review of systems as above and the rest negative. Past Medical History:? As above Past Surgical History: none Family history:? Noncontributory Social History: ?Lives home, patient is fairly active, usually plays 18 holes 3- 4 times per week during season, no history of tobacco consumption, social alcohol, no drugs. CODE STATUS: FULL CODE Allergies: NKDA Home Medications: See [facility] Rec PHYSICAL EXAM: VS: 136/64; 66; 15; 98% RA; 99.0 F General:? Alert oriented x3 no acute distress.? Speaking full sentences.? Speech is well articulated, thought process is coherent.? Following all commands. Skin:? Intact, no lesions, edema, erythema, clubbing or cyanosis.? No ulcers. HEENT:? Head is normocephalic, atraumatic, pupils equal round reactive to light accommodation bilaterally.? Extraocular movements appear intact.? Buccal mucosa is moist, Neck is supple without lymphadenopathy. Cardiac:? Clear S1-S2, no murmurs rubs or gallops. Pulmonary:? Clear to auscultation, no wheezes, rales or rhonchi. Abdomen:? Protuberant, positive bowel sounds in all 4 quadrants.? Soft, nontender, no rebound or guarding.? Musculoskeletal:? Moving all 4 extremities upon request a major joints, there is no crepitus or tenderness.? The strength is 5/5 bilaterally and throughout all 4 extremities.? There is no leg edema , no calf tenderness , no leg asymmetry.? Gait not assessed at this point. Neurologic:? As above, cranial nerves 2-12 are grossly intact.? No focal deficits noted.? Strength as above.? [id number] test intact.? Heel to [place] test intact.? There is no pronator drift. Gait is now normal, no imbalance noted. Vascular:? 2+ pulses upper and lower extremities distally. SIGNIFICANT LABORATORY DATA:? White blood cells 9.6, hemoglobin 15.5, hematocrit 44.7, platelets 223.? Coagulation profile is unremarkable.? Sodium 130, potassium 4.7, chloride 106, carbon dioxide 21, BUN 18, creatinine 1.08.? Total CK 5261, troponin 5.8. REVIEW OF IMAGES: ?As above EKG REVIEW: Sinus rhythm 66 beats per minute.? No ST elevations or depressions.? QTC 463.? No comparison? ASSESSMENT AND PLAN: 1. Acute ischemic stroke post tPA 2. Hyperlipidemia 3. Acute rhabdomyolysis likely due to strenuous activities the patient was playing golf prior to this incident; less likely due to statin, but possible. 4. Clinical dehydration hemoconcentration Patient will be admitted to ICU for close monitoring and liberalized blood pressure, will hold his statin for now, check lipid levels in the morning, add gentle IV fluids and recheck CPK in the morning as well as BUN creatinine electrolytes.? The patient may need an echo with bubble study in the morning.? No aspirin products or related for now GI PROPHYLAXIS:? Not needed DVT PROPHYLAXIS:? Pneumatic stockings and early ambulation. Critical care time used for critical evaluation of this patient, diagnosis, treatment and coordination of care, review her records and documentation TOTAL CRITICAL CARE TIME 90 MIN . Patient's care was discussed in detail with Dr. Hollingsworth.? He is aware of all the above as well as the plan of care for this patient. PMFSH Past Medical History Medical History High cholesterol Social History Social History Household Members: Spouse Housing: House Do you presently have visiting nurse or other home services: No Alcohol intake: current Alcohol intake frequency: holidays/special occasions only Alcohol type: beer Patient Tobacco Use Status: Never used Tobacco service: No Current occupational status: retired Meds Allergies Allergy/AdvReac Type Severity Reaction Status Date / Time Oytiosu-ZBI-ApT Reductase Allergy Unknown Verified 05/17/21 18:40 Inhibitor Active Medications: Current Medications Sodium Chloride (Ns) 1,000 mls @ 75 mls/hr IVCONT .[id number] [facility] Last Admin: 05/17/21 23:52 Dose: 75 mls/hr Documented by: Ondansetron HCl (Ondansetron Hcl 4 Mg/2 Ml Vial) 4 mg IVPUSH Q8H PRN PRN Reason: Nausea and Vomiting Pharmacy Consult (Consult Rx Perform Med Rec) 1 each MISCELLANE ONCE PRN PRN Reason: Consult order Sodium Chloride (0.9 % Sodium Chloride Flush 3 Ml Syringe) 3 ml IVFLUSH QSHIFT [facility] Last Admin: 05/17/21 23:52 Dose: 3 ml Documented by: Home Medications Medication Instructions Recorded Confirmed Last Taken Type cholecalciferol (vitamin D3) 25 25 mcg PO DAILY 05/17/21 05/17/21 05/16/21 History mcg (1,000 unit) tablet (Vitamin D3) Physical Exam Vital Signs: Vital Signs: Last Vital Signs Temp 99.0 F 05/17/21 20:00 Pulse 72 05/17/21 23:00 Resp 24 H 05/17/21 23:00 BP 129/68 05/17/21 23:00 Pulse Ox 97 05/17/21 23:00 BMI result Body Mass Index 27.7 Results Labs CBC and Chem 7: 05/18/21 05:31 05/18/21 05:31 Labs: Laboratory Results - last 24 hr 05/17/21 05/17/21 05/17/21 13:06 13:07 14:01 MCV 89.2 MCH 30.9 MCHC 34.7 RDW 12.9 Plt Count 223 MPV 8.4 L Immature Gran % (Auto) 0.4 Neut % (Auto) 84.5 H Lymph % (Auto) 10.1 L [place] % (Auto) 4.5 Eos % (Auto) 0.3 Baso % (Auto) 0.2 Lymph # (Auto) 1.0 L [place] # (Auto) 0.4 Eos # (Auto) 0.0 Baso # (Auto) 0.0 Abs Immat Gran (auto) 0.04 H Absolute Neuts (auto) 8.1 Absolute Nucleated RBC 0.000 Nucleated RBC % (auto) 0.0 PT Whole Blood PT 12.7 INR Whole Blood INR 1.1 APTT Anion Gap Estim Creat Clear Calc Estimated GFR POC Glucose 117 H Random Glucose Calcium Total Creatine Kinase Troponin I High Sens COVID-19 (JOSE GUADALUPE) COVID-19 Clin Com 05/17/21 05/17/21 05/17/21 14:01 14:01 14:01 MCV MCH MCHC RDW Plt Count MPV Immature Gran % (Auto) Neut % (Auto) Lymph % (Auto) [place] % (Auto) Eos % (Auto) Baso % (Auto) Lymph # (Auto) [place] # (Auto) Eos # (Auto) Baso # (Auto) Abs Immat Gran (auto) Absolute Neuts (auto) Absolute Nucleated RBC Nucleated RBC % (auto) PT 12.4 Whole Blood PT INR 1.1 Whole Blood INR APTT 27.1 Anion Gap 16 Estim Creat Clear Calc 69.4 Estimated GFR > 60 POC Glucose Random Glucose 116 H Calcium 9.4 Total Creatine Kinase 5261 H Troponin I High Sens 5.8 COVID-19 (JOSE GUADALUPE) COVID-19 Clin Com 05/17/21 05/17/21 16:57 21:22 MCV MCH MCHC RDW Plt Count MPV Immature Gran % (Auto) Neut % (Auto) Lymph % (Auto) [place] % (Auto) Eos % (Auto) Baso % (Auto) Lymph # (Auto) [place] # (Auto) Eos # (Auto) Baso # (Auto) Abs Immat Gran (auto) Absolute Neuts (auto) Absolute Nucleated RBC Nucleated RBC % (auto) PT Whole Blood PT INR Whole Blood INR APTT Anion Gap Estim Creat Clear Calc Estimated GFR POC Glucose 128 H Random Glucose Calcium Total Creatine Kinase Troponin I High Sens COVID-19 (JOSE GUADALUPE) Negative COVID-19 Clin Com See Note Imaging Radiologist's Impressions: Impressions Head CT 05/17/21 13:13 IMPRESSION: No acute intracranial process seen. This critical result was discussed with Dr. Yang Kern at 1:27 PM on 05/17/2021. It was ascertained that the content and urgency of the report was understood at the time of direct communication. Head/Neck CTA 05/17/21 13:29 IMPRESSION: - Possible small acute infarct of indeterminate age within the right cerebellum on image 46 of series 5 and can be more definitively assessed with MRI. - No significant arterial stenoses and no acute arterial occlusions within the head or neck. CTA result discussed with Dr. Kern at 1:45 PM on 05/17/2021. Brain MRI 05/17/21 14:41 IMPRESSION: - There are several small acute infarcts within the right cerebellar hemisphere. There is no mass effect and there is no hemorrhagic transformation. - Otherwise unremarkable MRI of the brain. Findings discussed with Dr. Kern at 3:04 PM on 05/17/2021.
[2021-05-18] VITALS (16 sets, daily range): BP systolic 111–147; BP diastolic 61–75; PULSE 54–84; RESP 12–25; TEMP 36.9–37.1; O2SAT 94–97; BMI 27.7
[2021-05-18 05:42] LABS: MANUAL DIFF FLAG NO
[2021-05-18 05:43] LABS: Basophils Percent Auto 0.4 % (0-2); Eosinophils Absolute Auto 0.1 X10*3/uL (0.0-0.4); Eosinophils Percent Auto 1.2 % (0-4); Hematocrit 40.3 % (42.0-52.0); Imm Gran Abs Auto 0.01 X10*3/uL (0.00-0.03); Imm Gran Pct Auto 0.1 % (0.0-0.4); Lymphocytes Absolute Auto 2.1 X10*3/uL (1.2-4.9); Lymphocytes Percent Auto 28.7 % (20-40); Mean Corpuscular HGB Conc 34.7 g/dl (31.0-36.0); Mean Corpuscular Volume 89.4 fL (80.0-98.0); Mean Platelet Volume 8.4 fL (9.4-12.4); Monocytes Absolute Auto 0.5 X10*3/uL (0.1-1.2); Monocytes Percent Auto 7.3 % (2-11); Neutrophils Absolute Auto 4.5 x10*3/uL (2.0-8.3); Neutrophils Percent Auto 62.3 % (45-73); Platelet Count 221 X10*3/uL (160-400); Red Blood Count 4.51 X10*6/uL (4.60-5.80); Red Cell Distribution Width 13.2 % (11.0-16.0); White Blood Count 7.3 X10*3/uL (4.8-10.8)
[2021-05-18 05:59] LABS: Anion Gap 10 (12-20); Blood Urea Nitrogen 17 mg/dL (9-16); Calcium 8.7 mg/dL (8.4-10.2); Carbon Dioxide 24 mmol/L (22-29); Chloride 110 mmol/L (96-108); Cholesterol 142 mg/dL; Estimated Glomerular Filt Rate > 60; Glucose Random 102 mg/dL (60-115); HDL Cholesterol 34 mg/dL; LDL Cholesterol Calculated 89 mg/dl; Potassium 3.9 mmol/L (3.3-5.1); Sodium 140 mmol/L (135-145); Triglycerides 98 mg/dL
[2021-05-18 07:27] LABS: Glucose, Whole Blood 135 mg/dL (60-115)
--- NOTE | 2021-05-18 07:31 | PC.NURSE ---
Repeat Heat CT ordered for 0800. T.O Dr Hollingsworth - nat for patient to go to CT without nurse and off telemonitor.
[2021-05-18] MEDS: 0.9 % Sodium Chloride 1,000 ML 75 ML IVCONT (13:13)
--- NOTE | 2021-05-18 13:47 | MHC.STROKEDC ---
PATIENT CAN TAKE ASPIRIN 81MG STARTING AFTER 3pm TODAY, THEN DAILY IN THE AM. HE WILL NEED AN ECHO WITH BUBBLE STUDY THIS WEEK. HE WILL NEED TO FOLLOW UP WITH HIS PRIMARY CARE PROVIDER THIS WEEK AND SCHEDULE A FOLLOW UP APPOINTMENT WITH DR GONZALES'S OFFICE [phone]. NO STATIN THERAPY AT THIS TIME. IF HE HAS ANY QUESTIONS HE CAN CALL RAY HUMPHREY RN DIRECTOR OF NEUROLOGY [phone].
--- NOTE | 2021-05-18 14:39 | P.PNCC_ITS ---
Subjective Subjective Date of Service: 05/18/21 Interval History: Mr. Guzman was admitted to the ICU yesterday evening after treatment with tPA in the ED for stroke. The patient is a 70 yo M with PMHx of hypercholesterolemia and obesity.? He plays 18 holes of golf four days/week. The patient was playing golf yesterday and at 12:15 had sudden onset of dizziness and vomiting w diaphoresis.? Initially he did not think much of it until he felt a sensation of crampiness, numbness of his left hand without any weakness.? He thought he might be having a stroke so an ambulance called and he was brought to the hospital about 45 min later. In ED, no gross neuro symptoms:? No weakness, no speech difficulties.? Head CT negative.? CTA showed a possible small acute infarct of indeterminate age within the right cerebellum.? Therefore underwent MRI which showed several small acute infarcts within the right cerebellar hemisphere; no mass effect and no hemorrhagic transformation.? Dr. Trevizo was consulted and tPA was administered.? All the patient?s symptoms subseq resolved.? The patient was subsequently admitted to the ICU for overnight monitoring. Today he feels completely well.? He has been walking up and down the hallway in the ICU.? No dizziness, no weakness.? Cranial nerve and peripheral motor exams grossly intact.? He is afebrile, heart rate 70, sinus rhythm.? Blood pressure 121/75.? Breathing easy with sat mid- to high-90s on room air. LABORATORY DATA:? Below.? Notably, BUN/creatinine down to 17/0.8, bicarb up to 24, CPK down to 2138. IMPRESSION: 1. Acute ischemic cerebellar stroke post tPA 2. ?CPK elevation. ?Acute rhabdomyolysis due to strenuous activities with or without dehydration (the patient?s tells me he doesn?t drink much fluids); or 2? to statin. D/W Lilly Hammer, who spoke with Dr. Degroot: - The patient may be discharged home today. - F/U with Dr. Trevizo and his PMD. - Baby ASA today at 3pm, and then qAM thereafter. - No more statins, at least for now. - F/U echo Critical Care Time (minutes): 0 Physical Exam Vital Signs: Vital Signs: Last Vital Signs Temp 98.7 F 05/18/21 12:00 Pulse 69 05/18/21 14:22 Resp 13 05/18/21 14:00 BP 121/75 05/18/21 14:22 Pulse Ox 95 05/18/21 14:22 BMI result Body Mass Index 27.7 Objective Data Labs CBC & Chem 7: 05/18/21 05:31 05/18/21 05:31 Labs: Laboratory Results - last 24 hr 05/17/21 05/17/21 05/17/21 14:01 16:57 21:22 WBC RBC Hgb Hct MCV MCH MCHC RDW Plt Count MPV Immature Gran % (Auto) Neut % (Auto) Lymph % (Auto) [place] % (Auto) Eos % (Auto) Baso % (Auto) Lymph # (Auto) [place] # (Auto) Eos # (Auto) Baso # (Auto) Abs Immat Gran (auto) Absolute Neuts (auto) Absolute Nucleated RBC Nucleated RBC % (auto) Sodium 138 Potassium 4.7 Chloride 106 Carbon Dioxide 21 L Anion Gap 16 BUN 18 H Creatinine 1.08 Estim Creat Clear Calc 69.4 Estimated GFR > 60 POC Glucose 128 H Random Glucose 116 H Calcium 9.4 Total Creatine Kinase 5261 H Triglycerides Cholesterol LDL Cholesterol, Calc HDL Cholesterol COVID-19 ([facility]SE GUADALUPE) Negative COVID-19 Clin Com See Note 05/18/21 05/18/21 05/18/21 05:31 05:31 07:23 WBC 7.3 RBC 4.51 L Hgb 14.0 Hct 40.3 L MCV 89.4 MCH 31.0 MCHC 34.7 RDW 13.2 Plt Count 221 MPV 8.4 L Immature Gran % (Auto) 0.1 Neut % (Auto) 62.3 Lymph % (Auto) 28.7 [place] % (Auto) 7.3 Eos % (Auto) 1.2 Baso % (Auto) 0.4 Lymph # (Auto) 2.1 [place] # (Auto) 0.5 Eos # (Auto) 0.1 Baso # (Auto) 0.0 Abs Immat Gran (auto) 0.01 Absolute Neuts (auto) 4.5 Absolute Nucleated RBC 0.000 Nucleated RBC % (auto) 0.0 Sodium 140 Potassium 3.9 Chloride 110 H Carbon Dioxide 24 Anion Gap 10 L BUN 17 H Creatinine 0.84 Estim Creat Clear Calc 87.0 Estimated GFR > 60 POC Glucose 135 H Random Glucose 102 Calcium 8.7 D Total Creatine Kinase 2138 H D Triglycerides 98 Cholesterol 142 LDL Cholesterol, Calc 89 HDL Cholesterol 34 D COVID-19 (JOSE GUADALUPE) COVID-19 Clin Com Quality Stroke Does the patient have a stroke diagnosis?: Yes Reason for No Anti-thrombotic by Day Two: N/A - Med Ordered VTE Prior VTE?: No VTE Risk Level:: Medical - low VTE Device Contraindication: Treatment Not Indicated VTE Drug Contraindication: Treatment Not Indicated
[2021-05-18] MEDS: Aspirin Enteric Coated 81 MG TABLET.DR PO (14:54)
--- NOTE | 2021-05-19 19:47 | P.DS_ITS ---
DS: Providers Provider Date of Service: 05/18/21 Date of admission: 05/17/21 16:40 Date of discharge: 05/18/21 Primary care physician: Esvin Gomes MD, DO Admitting clinician: Mike Neil Attending physician on admission: Shukri Hollingsworth Consults: 05/17/21 16:40 Consult to Neurology Routine Consulting Provider: Vinod Trevizo Reason for consultation: Stroke Has provider been notified: Yes Attending physician on discharge: Shukri Hollingsworth Discharging clinician: Mike Neil DS: Diagnosis Discharge Diagnosis (1) New cerebellar infarct: Start date: 05/17/21 Start time: 14:00 Status: Acute DS: Summary Hospital Course Hospital Course: ADMISSION/DISCHARGE DIAGNOSIS 1. Acute ischemic cerebellar stroke post tPA 2. Hyperlipidemia ==== no STATIN due to concern of Rhabdomyolysis 3. Acute rhabdomyolysis likely due to strenuous activities the patient was playing golf prior to this incident; less likely due to statin, but poss ible======= Improved 4. Clinical dehydration hemoconcentration HPI/HOSPITAL COURSE ?Patient is a 70 y.o Male with underlying history of hyperlipidemia and no other past medical history, presented to the emergency room this afternoon as the patient was playing golf and suddenly felt significantly dizzy to the point that he had to sit on the ground, every time the patient tried to get up, he was not able as he had no balance; he was assisted by his friends who gave him water but vomited it all.? Initially he did not think much of it until he felt a sensation of campiness, numbness of his left hand without any weakness.? He denies any visual disturbance, headache, chest pain, shortness of breath, arm or jaw pain, abdominal pain, arm or leg weakness. Patient was quickly transported to the emergency room where he was evaluated for possibility of stroke, head CT showed no acute hemorrhage then a head CT/neck with contrast and MRI showed - Possible small acute infarct of indeterminate age within the right cerebellum on image 46 of series 5 and can be more definitively assessed with MRI.- No significant arterial stenoses and no acute arterial occlusions within the head or neck; the?the decision to administer tPA was made upon consulting with Neurology and given at 1441 pm.? Subsequent MRI showed: - There are several small acute infarcts within the right cerebellar hemisphere. There is no mass effect and there is no hemorrhagic transformation. - Otherwise unremarkable MRI of the brain.? At this point the patient's symptoms have all resolved and he denies any other symptomatology including the numbness sensation of his left hand.? To the best of his knowledge, he has not had any tinnitus recently, he does not have any inner ear disease.? He is vaccinated for COVID with 3 doses and get about 3 months ago he did get COVID; now his covid test is negative. While in the ICU, patient was stable throughout his stay, there were no complications, his symptoms resolve completely, upon rechecking his laboratory CPK came down by more than 50% from the initial result, the patient was treated with slow IV fluids and rehydrated. At this point the patient has a completely normal exam with full function both neurologic and motor, normal ambulation and cognition.? The patient will be discharged home to follow-up as recommended and instructed. D/W Lilly Hammer, who spoke with Dr. Degroot: ?- The patient may be discharged home today. ?- F/U with Dr. Trevizo and his PMD. ?- Baby ASA today at 3pm, and then qAM thereafter. ?- No more statins, at least for now. ?- F/U echo Status at Discharge Cognitive/behavioral status at discharge: At baseline normal on exam Functional status at discharge: independent ambulation Overall status at discharge: patient is back to baseline Time Spent with Patient Time attestation: Total time spent providing and/or coordinating discharge services: Discharge coordination time: Greater than 30 minutes Specific discharge activities: as above Quality: Safe Use of Opioids Does Pt have an Active Cancer Diagnosis on the Problem List?: No Quality: Stroke Does the patient have a stroke diagnosis?: Yes Reason for No Anti-thrombotic at DC: Not indicated Reason for No Anticoagulant at DC: Not indicated Reason Not Initiating IV-Tpa: Not indicated Reason for No Anti-thrombotic by Day Two: Not indicated Reason for No Statin at DC: Adverse reaction to drug Physical Exam Vital Signs: Vital Signs: Last Vital Signs Temp 98.7 F 05/18/21 12:00 Pulse 69 05/18/21 14:22 Resp 13 05/18/21 14:00 BP 121/75 05/18/21 14:22 Pulse Ox 95 05/18/21 14:22 BMI result Body Mass Index 27.7 Discharge Plan Discharge Anticipated Discharge Date/Time: 05/18/21 15:20 Patient Disposition: Home, Self-Care Discharge Diagnosis: Acute stroke Referrals: Esvin Gomes MD, DO [Primary Care Provider] - 1 Week Discharge Medications: New aspirin 81 mg tablet,chewable 81 mg PO DAILY Qty: 30 0RF Continued cholecalciferol (vitamin D3) [Vitamin D3] 25 mcg (1,000 unit) Tablet 25 mcg PO DAILY 0RF Discontinued simvastatin 20 mg tablet 1 tab PO BEDTIME 0RF Discharge Orders: Discharge Order (Routine); Ordered 05/18/21 Ordered By: Shukri Hollingsworth Diet: advance to usual diet Activity on Discharge: As tolerated Stand Alone Forms: Patient Portal Discharge page Care Plan Goals: F/U as d/w the patient Health Concerns: Stroke Plan of Treatment: F/U with PMD Assessment: Stroke, s/p tPA Discharge Date/Time: 05/18/21 15:18
== END 2021-05-18 15:18 | disposition home or self-care (01) | DRG 62 ==
LOC: HO.ED 16:37 → HO.EDOVER 16:54 → HO.ICU 17:09
PROVIDERS: Admitting Provider Anesthesiology; Emergency Provider Emergency Medicine; PCP Internal Medicine; Visit Provider Anesthesiology
DX: I63.89 Other cerebral infarction (principal); M62.82 Rhabdomyolysis; R47.81 Slurred speech; T46.6X5A Adverse effect of antihyperlipidemic and antiarteriosclerotic drugs, initial encounter; E66.9 Obesity, unspecified; E86.0 Dehydration; Z68.27 Body mass index [BMI] 27.0-27.9, adult; R29.700 NIHSS score 0; E78.5 Hyperlipidemia, unspecified; Z20.822 Contact with and (suspected) exposure to COVID-19; Z79.82 Long term (current) use of aspirin; Z79.899 Other long term (current) drug therapy
CPT/HCPCS: 36415; 70450; 70496; 70498; 70551; 80048; 80061; 82550; 82947; 84484; 85025; 85610; 85730; 87635; 93005; 97162; 99285; J2997; Q9967

== ENCOUNTER → 2021-06-04 14:00 | Outpatient (REF) | payer MEDICARE, SELFPAY | LOC: HO.CARD 14:00 | PROVIDERS: PCP Internal Medicine; Referring Provider Internal Medicine; Visit Provider Internal Medicine | DX: I63.9 Cerebral infarction, unspecified (principal); R74.8 Abnormal levels of other serum enzymes | CPT/HCPCS: 93005; 99202 ==

== ENCOUNTER 2021-06-05 12:03 | Outpatient (REF) | payer MEDICARE, SELFPAY ==
[2021-06-09 14:47] LABS: CK-BB None Detected (None Detected); CK-MB 0 % (<5); CK-MM 100 % (95-100); Creatine Kinase,Total,Serum 111 U/L (44-196)
== END 2021-06-05 12:04 | disposition home or self-care (01) ==
LOC: HO.HMGCLDS 12:03
PROVIDERS: PCP Internal Medicine; Visit Provider Internal Medicine
DX: R74.8 Abnormal levels of other serum enzymes (principal); Z86.73 Personal history of transient ischemic attack (TIA), and cerebral infarction without residual deficits
CPT/HCPCS: 36415; 82552

== ENCOUNTER → 2021-06-11 07:24 | Outpatient (REF) | payer MEDICARE, SELFPAY ==
--- NOTE | 2021-06-11 07:27 | CA_ITS ---
Transthoracic Echocardiogram Patient (Last, First, Middle): Rm Guzman J Gender: Male Date of : 1950 Age: 70 Procedure Date: 06/11/2021 Procedure Type: Transthoracic Echocardiogram Location: OP Height: 175.26 cm Weight: 81.19 kg BSA: 1.97 m2 Heart Rate: bpm BP: 124 / 72 mmHg Scagliola Mechanic: SB Referring MD: Ramesh Madison MD Symptoms: I63.9 - Cerebral infarction, unspecified Study Quality: Fair ECG Rhythm: Sinus Conclusions: - The left ventricular systolic function is normal. The visually estimated ejection fraction is between 60-65%. - Mildly increased right ventricular cavity size. - No obvious valvular pathology seen on this study. - There is no evidence of interatrial shunt by agitated saline. Findings Left Ventricle Normal left ventricular cavity size. There is normal left ventricular wall thickness. The left ventricular systolic function is normal. The visually estimated ejection fraction is between 60-65%. There is no evidence of regional wall motion abnormalities. LV peak GLS -15.4% (but not tracking well and hence technical factors may play a role). Right Ventricle Mildly increased right ventricular cavity size. There is normal right ventricular systolic function. Atria Both atria are normal in size. There is no evidence of interatrial shunt by agitated saline. (rest and valsalva). Aortic Valve There is a normal trileaflet aortic valve. There is no aortic valve stenosis. There is no aortic valve regurgitation. Mitral Valve The mitral valve appears normal. There is no mitral valve regurgitation. There is no mitral valve stenosis. Pulmonic Valve The pulmonic valve is likely normal. Tricuspid Valve Normal tricuspid valve structure. There is no tricuspid valve regurgitation. The pulmonary artery systolic pressure is normal. Great Vessels The aortic annulus, sinuses of valsalva, and asc aorta are normal in size. Venous The inferior vena cava is normal in size and collapses greater than 50% with inspiration. Pericardium/Pleural There is no evidence of pericardial effusion. Prior Study Comparison No prior study available for comparison. Recommendations, Care & Conclusions No obvious valvular pathology seen on this study. Measurements 2D Linear Measurements IVSd: 1.01 0.6-0.9/0.6-1.0 cm LVIDd: 4.74 3.9-5.3/4.2-5.9 cm LVIDd Index: 2.41 2.4-3.2/2.2-3.1 cm/m2 LVIDs: 2.97 2.0-3.6 cm LVPWd: 0.80 0.7-1.1 cm LA Diam: 4.10 2.7-3.8/3.0-4.0 cm LAIDs Index: 2.08 1.5-2.3 cm/m2 LV Mass: 180.83 67-162/88-224 g LV Mass Index: 91.79 43-95/49-115 g/m2 LVOT Diam: 2.50 3.0+(-)1.3 cm 2D Systolic Function EF 4C: 62.10 >55% EF 2C: 59.70 >55% EF BiP: 59.20 >55% Mitral Valve MV Pk E: 0.72 MV PK A: 0.45 MV Decel Time: 250.00 E/A: 1.60 E'Lateral: 8.92 E'Medial: 8.38 E/E' Med: 8.60 E/E' Lat: 8.10 PHT: 73.00 MVA PHT: 3.01 Decel Floyd: 2.90 Aortic Valve AoV Pk Richard: 1.17 AoV Mn Richard: 0.79 AoV VTI: 0.23 AoV Pk Grad: 5.00 Aov Mn Grad: 3.00 SAMANTHA Cont.VTI: 5.25 LVOT LVOT Pk Richard: 1.22 LVOT Mn Richard: 0.77 LVOT VTI: 0.25 LVOT Pk Grad: 6.00 LVOT Mn Grad: 3.00 LVOT Diam: 2.50 LVOT Area: 4.91 Diastolic Function MV Pk E: 0.72 MV Pk A: 0.45 E/A: 1.60 E'Medial: 8.38 E/E' Med: 8.60 E' Laterial: 8.92 E/E' Lat: 8.10 Right Ventricle TAPSE (mm): 19.00 TVS' Richard: 10.00 Tricuspid Valve TR Pk Richard: 2.00 TR Pk Grad: 16.00 RA Press: 3.00 RVSP: 19.00 Great Vessels Aorta Sinus of Valsalva: 3.10 2.0-3.[address] Ridge: 2.90 1.7-3.4 cm Ao Asc: 3.30 2.1-3.4 cm Pulmonary Veins Pulm Vein S/D 1.00 Pulmonary Valve PV Pk Richard: 0.85 Peak PV Grad: 3.00 Updated in Other Vendor System with Status of Final Ramesh Madison MD electronically signed on 06/12/2021 12:00:07 PM with status of Final
--- NOTE | 2021-06-11 07:27 | HM_ITS ---
TEST PERFORMED: Cardiac event monitor. REQUESTING PHYSICIAN: Dr. Madison. INDICATION: Paroxysmal atrial fibrillation. ENROLLMENT PERIOD: 06/11/2021, to 07/11/2021; 30 days. FINDINGS: In the above monitoring period, underlying rhythm is sinus. Rates ranged from 53 to 120 beats per minute. Isolated PVCs are recorded. Shortness of breath reported by patient correlated with sinus tachycardia at 116 per minute. Otherwise, there were several patient activations but no specific symptoms, and they generally correlated to sinus rhythm or mild sinus tachycardia. CONCLUSION: Study shows no evidence of atrial fibrillation. Sinus rhythm, mild sinus tachycardia, PVCs. Ramesh Madison MD HS/CAML / [id number]
== END ==
LOC: HO.CARD 07:24
PROVIDERS: PCP Internal Medicine; Visit Provider Internal Medicine
DX: I63.9 Cerebral infarction, unspecified (principal); I48.0 Paroxysmal atrial fibrillation
CPT/HCPCS: 93270; 93306

== ENCOUNTER 2021-06-18 06:59 | Outpatient (REF) | payer MEDICARE, SELFPAY ==
[2021-06-18 11:33] LABS: MANUAL DIFF FLAG NO
[2021-06-18 11:49] LABS: Basophils Percent Auto 0.6 % (0-2); Eosinophils Absolute Auto 0.2 X10*3/uL (0.0-0.4); Eosinophils Percent Auto 3.1 % (0-4); Hematocrit 46.9 % (42.0-52.0); Hemoglobin 15.5 g/dl (14.0-18.0); Imm Gran Abs Auto 0.01 X10*3/uL (0.00-0.03); Imm Gran Pct Auto 0.2 % (0.0-0.4); Lymphocytes Absolute Auto 1.7 X10*3/uL (1.2-4.9); Lymphocytes Percent Auto 33.7 % (20-40); Mean Corpuscular Hemoglobin 30.5 pg (27.0-33.0); Mean Corpuscular Volume 92.3 fL (80.0-98.0); Mean Platelet Volume 8.9 fL (9.4-12.4); Monocytes Absolute Auto 0.4 X10*3/uL (0.1-1.2); Monocytes Percent Auto 8.2 % (2-11); Neutrophils Absolute Auto 2.7 x10*3/uL (2.0-8.3); Neutrophils Percent Auto 54.2 % (45-73); Platelet Count 272 X10*3/uL (160-400); Red Blood Count 5.08 X10*6/uL (4.60-5.80); Red Cell Distribution Width 13.2 % (11.0-16.0); White Blood Count 4.9 X10*3/uL (4.8-10.8)
[2021-06-18 12:02] LABS: Alanine Aminotransferase 25 U/L (0-40); Albumin Level 4.2 g/dL (3.5-5.0); Alkaline Phosphatase 57 U/L (39-117); Anion Gap 12 (12-20); Aspartate Amino Transferase 25 U/L (5-37); Bilirubin Total 1.1 mg/dL (0.0-1.0); Blood Urea Nitrogen 14 mg/dL (9-16); Calcium 9.5 mg/dL (8.4-10.2); Carbon Dioxide 26 mmol/L (22-29); Chloride 105 mmol/L (96-108); Cholesterol 231 mg/dL; Estimated Glomerular Filt Rate > 60; Glucose Fasting 114 mg/dL (60-99); HDL Cholesterol 49 mg/dL; LDL Cholesterol Calculated 161 mg/dl; Potassium 4.1 mmol/L (3.3-5.1); Sodium 139 mmol/L (135-145); Total Protein 6.8 g/dL (6.5-8.0); Triglycerides 108 mg/dL
[2021-06-18 12:11] LABS: Thyroid Stimulating Hormone 1.09 uIU/mL (0.32-4.0); Vitamin D 25-OH Total 32.3 ng/mL (>30)
== END 2021-06-18 07:00 | disposition home or self-care (01) ==
LOC: HO.HMGCLDS 06:59
PROVIDERS: Visit Provider Internal Medicine
DX: E78.00 Pure hypercholesterolemia, unspecified (principal); E55.9 Vitamin D deficiency, unspecified
CPT/HCPCS: 36415; 80053; 80061; 82306; 82550; 84443; 85025

== ENCOUNTER 2021-07-24 08:18 | Outpatient (REF) | payer MEDICARE, SELFPAY ==
[2021-07-24 12:11] LABS: Alanine Aminotransferase 23 U/L (0-40); Albumin Level 4.4 g/dL (3.5-5.0); Alkaline Phosphatase 55 U/L (39-117); Anion Gap 15 (12-20); Aspartate Amino Transferase 26 U/L (5-37); Bilirubin Total 1.2 mg/dL (0.0-1.0); Blood Urea Nitrogen 13 mg/dL (9-16); Calcium 9.1 mg/dL (8.4-10.2); Carbon Dioxide 23 mmol/L (22-29); Chloride 107 mmol/L (96-108); Cholesterol 161 mg/dL; Estimated Glomerular Filt Rate > 60; Glucose Fasting 98 mg/dL (60-99); HDL Cholesterol 43 mg/dL; LDL Cholesterol Calculated 100 mg/dl; Potassium 4.7 mmol/L (3.3-5.1); Sodium 140 mmol/L (135-145); Total Protein 7.1 g/dL (6.5-8.0); Triglycerides 92 mg/dL
== END 2021-07-24 08:19 | disposition home or self-care (01) ==
LOC: HO.HMGCLDS 08:18
PROVIDERS: PCP Internal Medicine; Visit Provider Internal Medicine
DX: E78.00 Pure hypercholesterolemia, unspecified (principal); E55.9 Vitamin D deficiency, unspecified; Z86.73 Personal history of transient ischemic attack (TIA), and cerebral infarction without residual deficits
CPT/HCPCS: 36415; 80053; 80061; 82550

== ENCOUNTER 2021-11-07 09:00 | Outpatient (REF) | payer MEDICARE, SELFPAY ==
[2021-11-07 11:11] LABS: MANUAL DIFF FLAG NO
[2021-11-07 11:27] LABS: Basophils Percent Auto 0.6 % (0-2); Eosinophils Absolute Auto 0.1 X10*3/uL (0.0-0.4); Eosinophils Percent Auto 1.7 % (0-4); Hematocrit 47.1 % (42.0-52.0); Hemoglobin 15.9 g/dl (14.0-18.0); Imm Gran Abs Auto 0.02 X10*3/uL (0.00-0.03); Imm Gran Pct Auto 0.4 % (0.0-0.4); Lymphocytes Absolute Auto 1.5 X10*3/uL (1.2-4.9); Lymphocytes Percent Auto 28.9 % (20-40); Mean Corpuscular HGB Conc 33.8 g/dl (31.0-36.0); Mean Corpuscular Hemoglobin 30.6 pg (27.0-33.0); Mean Corpuscular Volume 90.8 fL (80.0-98.0); Monocytes Absolute Auto 0.4 X10*3/uL (0.1-1.2); Monocytes Percent Auto 7.5 % (2-11); Neutrophils Absolute Auto 3.2 x10*3/uL (2.0-8.3); Neutrophils Percent Auto 60.9 % (45-73); Platelet Count 281 X10*3/uL (160-400); Red Blood Count 5.19 X10*6/uL (4.60-5.80); White Blood Count 5.2 X10*3/uL (4.8-10.8)
[2021-11-07 12:03] LABS: Alanine Aminotransferase 19 U/L (0-40); Albumin Level 4.5 g/dL (3.5-5.0); Alkaline Phosphatase 59 U/L (39-117); Anion Gap 14 (12-20); Aspartate Amino Transferase 26 U/L (5-37); Bilirubin Total 1.5 mg/dL (0.0-1.0); Blood Urea Nitrogen 17 mg/dL (9-16); Calcium 9.2 mg/dL (8.4-10.2); Carbon Dioxide 25 mmol/L (22-29); Chloride 103 mmol/L (96-108); Cholesterol 203 mg/dL; Estimated Glomerular Filt Rate > 60; Glucose Fasting 108 mg/dL (60-99); HDL Cholesterol 48 mg/dL; LDL Cholesterol Calculated 136 mg/dl; Potassium 4.3 mmol/L (3.3-5.1); Sodium 138 mmol/L (135-145); Triglycerides 96 mg/dL
== END 2021-11-07 09:01 | disposition home or self-care (01) ==
LOC: HO.HMGCLDS 09:00
PROVIDERS: PCP Internal Medicine; Visit Provider Internal Medicine
DX: E78.00 Pure hypercholesterolemia, unspecified (principal)
CPT/HCPCS: 36415; 80053; 80061; 82550; 85025

== ENCOUNTER 2022-01-07 07:47 | Outpatient (REF) | payer MEDICARE, SELFPAY ==
[2022-01-07 11:31] LABS: Appearance Urine Turbid; Color Urine Yellow; Glucose Urine UA Negative (Negative); Leukocyte Esterase Urine Negative (Negative); Nitrite Urine Negative (Negative); Specific Gravity - Urine 1.025 (1.005-1.025); UMIC TRIGGER UA YES; Urine Blood Trace (Negative); Urine Ketones Negative (Negative); Urine Protein Negative (Neg-Trace)
[2022-01-07 11:38] LABS: Bacteria Urine None Seen (None Seen); Hyaline Casts Urine 0-2 /LPF (0-2); RBC Urine 0-2 /HPF (0-2); Squamous Epithelial Cell Urine 0-2 /HPF (0-2); WBC Urine 0-5 /HPF (0-5)
[2022-01-07 13:23] LABS: Alanine Aminotransferase 16 U/L (0-40); Albumin Level 4.2 g/dL (3.5-5.0); Alkaline Phosphatase 51 U/L (39-117); Anion Gap 12 (12-20); Aspartate Amino Transferase 16 U/L (5-37); Bilirubin Total 1.2 mg/dL (0.0-1.0); Blood Urea Nitrogen 16 mg/dL (9-16); Calcium 9.5 mg/dL (8.4-10.2); Carbon Dioxide 27 mmol/L (22-29); Chloride 105 mmol/L (96-108); Cholesterol 170 mg/dL; Estimated Glomerular Filt Rate > 60; Glucose Fasting 107 mg/dL (60-99); HDL Cholesterol 42 mg/dL; LDL Cholesterol Calculated 102 mg/dl; Potassium 4.1 mmol/L (3.3-5.1); Sodium 140 mmol/L (135-145); Total Protein 6.5 g/dL (6.5-8.0); Triglycerides 131 mg/dL; Vitamin D 25-OH Total 41.1 ng/mL (>30)
== END 2022-01-07 07:48 | disposition home or self-care (01) ==
LOC: HO.HMGCLDS 07:47
PROVIDERS: PCP Internal Medicine; Visit Provider Internal Medicine
DX: E78.00 Pure hypercholesterolemia, unspecified (principal); E55.9 Vitamin D deficiency, unspecified; Z86.73 Personal history of transient ischemic attack (TIA), and cerebral infarction without residual deficits
CPT/HCPCS: 36415; 80053; 80061; 81001; 82306; 82550

== ENCOUNTER 2022-04-14 07:35 | Outpatient (REF) | payer MEDICARE, SELFPAY ==
[2022-04-14 12:42] LABS: Alanine Aminotransferase 20 U/L (0-40); Albumin Level 4.2 g/dL (3.5-5.0); Alkaline Phosphatase 59 U/L (39-117); Anion Gap 11 (12-20); Aspartate Amino Transferase 19 U/L (5-37); Bilirubin Total 1.6 mg/dL (0.0-1.0); Blood Urea Nitrogen 20 mg/dL (9-16); Calcium 9.2 mg/dL (8.4-10.2); Carbon Dioxide 30 mmol/L (22-29); Chloride 104 mmol/L (96-108); Cholesterol 179 mg/dL; Estimated Glomerular Filt Rate > 60; Glucose Fasting 104 mg/dL (60-99); HDL Cholesterol 47 mg/dL; LDL Cholesterol Calculated 109 mg/dl; Potassium 4.3 mmol/L (3.3-5.1); Sodium 141 mmol/L (135-145); Total Protein 6.7 g/dL (6.5-8.0); Triglycerides 117 mg/dL
[2022-04-14 12:45] LABS: PSA,Total (Free>4and<10) 1.37 ng/mL (0.00-4.00)
== END 2022-04-14 07:36 | disposition home or self-care (01) ==
LOC: HO.HMGCLDS 07:35
PROVIDERS: Visit Provider Internal Medicine
DX: Z00.00 Encounter for general adult medical examination without abnormal findings (principal); Z12.5 Encounter for screening for malignant neoplasm of prostate; E78.00 Pure hypercholesterolemia, unspecified; E55.9 Vitamin D deficiency, unspecified; Z86.73 Personal history of transient ischemic attack (TIA), and cerebral infarction without residual deficits
CPT/HCPCS: 36415; 80053; 80061; 82550; 84153

== ENCOUNTER 2022-07-25 08:47 | Outpatient (REF) | payer MEDICARE, SELFPAY ==
[2022-07-25 12:17] LABS: Alanine Aminotransferase 19 U/L (0-40); Albumin Level 4.2 g/dL (3.5-5.0); Alkaline Phosphatase 55 U/L (39-117); Anion Gap 10 (12-20); Aspartate Amino Transferase 22 U/L (5-37); Blood Urea Nitrogen 16 mg/dL (9-16); Calcium 9.4 mg/dL (8.4-10.2); Carbon Dioxide 28 mmol/L (22-29); Chloride 105 mmol/L (96-108); Cholesterol 227 mg/dL; Estimated Glomerular Filt Rate > 60; Glucose Fasting 103 mg/dL (60-99); HDL Cholesterol 49 mg/dL; LDL Cholesterol Calculated 159 mg/dl; Potassium 4.1 mmol/L (3.3-5.1); Sodium 139 mmol/L (135-145); Total Protein 6.8 g/dL (6.5-8.0); Triglycerides 97 mg/dL
[2022-07-25 12:22] LABS: Vitamin D 25-OH Total 49.1 ng/mL (>30)
== END 2022-07-25 08:48 | disposition home or self-care (01) ==
LOC: HO.HMGCLDS 08:47
PROVIDERS: PCP Internal Medicine; Visit Provider Internal Medicine
DX: E78.00 Pure hypercholesterolemia, unspecified (principal); E55.9 Vitamin D deficiency, unspecified; Z86.73 Personal history of transient ischemic attack (TIA), and cerebral infarction without residual deficits
CPT/HCPCS: 36415; 80053; 80061; 82306

== ENCOUNTER 2022-09-10 09:32 | Outpatient (AMB) | payer MEDICARE, SELFPAY ==
--- NOTE | 2022-09-10 09:35 | A.OFFVIS_ITS ---
Intake Vital Signs 09/10/22 09:36 Height 5 ft 9 in Weight 177 lb 11.081 oz BMI 26.2 BP 142/80 H Blood Pressure Location Lt brachial Position Sitting Pulse 74 Intake Visit Reasons: follow up Intake Note: follow up Garageman Required: No Accompanied by: Self / Same As Patient Allergies Gyzruhu-ZBS-SmV Reductase Inhibitor Adverse Reaction (Unknown, Verified 09/10/22 09:37) Unknown Medication List - Last Reconciled 09/10/22 by Ramesh Madison MD aspirin 81 mg PO DAILY cholecalciferol (vitamin D3) (Vitamin D3) 25 mcg PO DAILY pravastatin 40 mg PO DAILY HPI HPI Comments History of Present Illness Details Rm returns for follow-up. Last year, he was seen in consultation for stroke but has not return for follow-up till today. At that time, the history is that he was playing golf and all of sudden had some vertigo. Then diagnosed with cerebellar stroke and he received tPA. Then it seems that he was fully recovered and was discharged home the next day. Overall, quite healthy without any known cardiac issues. Denies any coronary artery disease or myocardial infarction or in fact anything else cardiac related. Not a known hypertensive or diabetic either. Last year, he underwent an echocardiogram as well as 30 day monitor which were unremarkable. However, in the last few weeks he has again noticing palpitations which is a new symptom. No other cardiac symptoms. [facility] Medical History High cholesterol Surgical History No pertinent past surgical history Family History Father No problems noted. Mother No problems noted. Social History Household Members: Spouse Housing: House Do you presently have visiting nurse or other home services: No Alcohol intake: current Alcohol intake frequency: holidays/special occasions only Alcohol type: beer Patient Tobacco Use Status: Never used Tobacco service: No Current occupational status: retired Review of Systems Const Denies weakness ENT Denies dizziness Card Denies chest pain, Denies chest pain with activity, Denies syncope, Denies rapid heart rate, Denies pedal edema, Denies edema, Denies leg edema, Denies lightheadedness, Denies palpitations, Denies dyspnea, Denies dyspnea on exertion and Denies orthopnea Resp Denies cough, Denies dyspnea and Denies dyspnea on exertion GI Denies hematochezia and Denies change in stool character Musc Denies abnormal gait, Denies muscle cramps, Denies muscle weakness, Denies numbness, Denies radiating pain into limb and Denies tingling Neuro Denies abnormal gait, Denies dizziness, Denies syncope, Denies numbness, Denies tingling and Denies weakness Endo Denies palpitations Physical Exam Vital Signs: Last Vital Signs Pulse 74 09/10/22 09:36 BP 142/80 H 09/10/22 09:36 BMI result Body Mass Index 26.2 Const General: comfortable and no acute distress Orientation/consciousness: patient oriented x3 HEENT Other: Unremarkable Head: Yes normal to inspection Neck Neck: Yes normal visual inspection Chest Chest palpation & inspection: normal inspection of the chest Resp Auscultation: clear to auscultation bilaterally Cardio Palpation: normal PMI Heart sounds: S1 normal heart sound present, S2 normal heart sound present, no gallops, no murmurs and no rubs GI Palpation (GI): Soft to palpation Back/Spine/Pelvis Other: unremarkable Skin General skin exam: no rashes or lesions noted Neuro General: patient oriented x3 Extrem General: Yes normal to inspection Psych Mental Status: mental status grossly normal Assessment & Plan Assessment & Plan (1) Cerebrovascular accident: Code(s): I63.9 - Cerebral infarction, unspecified (2) New cerebellar infarct: Code(s): I63.9 - Cerebral infarction, unspecified (3) Abnormal creatine kinase level: Code(s): R74.8 - Abnormal levels of other serum enzymes Plan Cardiac and neurological studies reviewed. Baseline EKG is unremarkable. Brain MRI had reported several small acute infarcts in the right cerebellar hemisphere. Head and neck CTA had shown no significant arterial stenosis in the head or neck. Echocardiogram with LVEF of 60-65%. Mild increase in RV size. Otherwise unremarkable. Bubble study was negative. Thirty day monitor showed no atrial fibrillation. Occasional PVCs. Overall, no clear etiology for the embolic looking stroke as yet. We can do a implantable loop recorder. Will also schedule him for a transesophageal echocardiogram with bubble study. Otherwise, he has multiple issues with statins. It seems he has tried simvastatin the past and actually was taking it at the time of stroke. Atorvastatin led to headaches. Pravastatin did not work well. Rosuvastatin made him tired. LDLs still on the higher side. Hence reasonable to try Repatha. Brochure was given. Script sent. Will follow-up in a few weeks time. Orders: Orders CA echo transesophageal Today I63.9 - Cerebral infarction, unspecified Implantable Loop Rec Implant Today I63.9 - Cerebral infarction, unspecified Medications: New evolocumab (Repatha Syringe) 140 mg subcut Q2W 3 mL 5RF 30 days I63.9 - Cerebral infarction, unspecified Coding Level of Care Code Est Pt Level 4 (49213) Diagnoses Cerebrovascular accident I63.9 New cerebellar infarct I63.9 Abnormal creatine kinase level R74.8
[2022-09-10 09:36] VITALS: BP 142/80; PULSE 74; BMI 26.2
== END 2022-09-10 10:06 | disposition home or self-care (01) ==
PROVIDERS: Visit Provider Internal Medicine
DX: I63.9 Cerebral infarction, unspecified (principal); R74.8 Abnormal levels of other serum enzymes
CPT/HCPCS: 99214

== ENCOUNTER → 2022-09-10 09:32 | Outpatient (BNVA) | payer MEDICARE, SELFPAY | PROVIDERS: Visit Provider Internal Medicine | DX: I63.9 Cerebral infarction, unspecified (principal); R74.8 Abnormal levels of other serum enzymes | CPT/HCPCS: 99212 ==

== ENCOUNTER → 2022-09-18 11:25 | Outpatient (BNV) | payer MEDICARE, SELFPAY | PROVIDERS: PCP Internal Medicine; Visit Provider Internal Medicine | DX: I63.9 Cerebral infarction, unspecified (principal) | CPT/HCPCS: 93312 ==

== ENCOUNTER 2022-09-18 11:54 | Day surgery (SDC) | payer MEDICARE, SELFPAY ==
--- NOTE | 2022-09-18 11:25 | CA_ITS ---
Transesophageal Echocardiogram Patient (Last, First, Middle): Rm Guzman J Gender: Male Date of : 1950 Age: 72 Procedure Date: 09/18/2022 Procedure Type: Transesophageal Echocardiogram Location: OP Height: 175.26 cm Weight: 80.74 kg BSA: 1.97 m2 Heart Rate: 58 bpm BP: 131 / 81 mmHg Audiovisual Technician: ROSELINE Referring MD: Ramesh Madison MD Symptoms: I63.9 - Cerebral infarction, unspecified Conclusion: ??? Suspect very small PFO with minimal shunting. Unlikely etiology for embolic stroke. ??? The left ventricular systolic function is normal. The visually estimated ejection fraction is between 60-65%. Findings Procedure Information The quality of the study was good. Consent was obtained prior to the procedure. Pre THERESA oral cavity was checked and revealed no overcrowding. The adult 3D probe was passed with no difficulty. Left Ventricle Normal left ventricular cavity size. The left ventricular systolic function is normal. The visually estimated ejection fraction is between 60-65%. There is no evidence of regional wall motion abnormalities. Right Ventricle Normal right ventricular cavity size and systolic function. Atria There is no evidence of a thrombus in the left atrial appendage. Suspect very small PFO with minimal right to left shunting; based on color dopper, bubble study with and without valsalva. No evidence of septal aneurysm. Aortic Valve There is a normal trileaflet aortic valve. There is no aortic valve stenosis. There is no aortic valve regurgitation. Mitral Valve The mitral valve appears normal. There is trace mitral valve regurgitation. There is no mitral valve stenosis. Pulmonic Valve The pulmonic valve was not well visualized. Tricuspid Valve Normal tricuspid valve structure. There is trace tricuspid valve regurgitation. Great Vessels No significant atherosclerotic plaque in visualized areas. Prior Study Comparison No significant change compared to prior study dated: 06/11/2021. Updated by Ramesh Madison on 05:25 PM with Status of Final Ramesh Madison MD electronically signed on 09/18/2022 5:25:28 PM with status of Final
[2022-09-18 12:18] VITALS: BMI 26.3
[2022-09-18 12:24] VITALS: BP 124/76; PULSE 73; RESP 16; TEMP 36.5; O2SAT 96
[2022-09-18] MEDS: Lactated Ringers 1,000 ML 50 ML IVCONT (12:45)
--- NOTE | 2022-09-18 12:58 | PC.NURSE ---
right ac IV attempt completed by author, insertion completed by quoc calvo rn.
[2022-09-18 13:40] VITALS: BP 112/62; PULSE 58; RESP 16; TEMP 36.6; O2SAT 95
[2022-09-18 13:55] VITALS: BP 131/67; PULSE 64; RESP 12; O2SAT 96
[2022-09-18 14:10] VITALS: BP 148/85; PULSE 54; RESP 14; O2SAT 98
[2022-09-18 14:25] VITALS: BP 147/82; PULSE 60; RESP 16; TEMP 36.1; O2SAT 99
== END 2022-09-18 14:55 | disposition home or self-care (01) ==
PROVIDERS: PCP Internal Medicine; Visit Provider Internal Medicine
PROC: (CPT 93312; principal; 2022-09-18 13:00)
DX: I63.9 Cerebral infarction, unspecified (principal); E78.00 Pure hypercholesterolemia, unspecified; R74.8 Abnormal levels of other serum enzymes; Z79.82 Long term (current) use of aspirin; Z79.899 Other long term (current) drug therapy; Z88.8 Allergy status to other drugs, medicaments and biological substances
CPT/HCPCS: 93312

== ENCOUNTER 2022-09-24 11:46 | Outpatient (REF) | payer MEDICARE, SELFPAY ==
[2022-09-24 12:18] VITALS: BMI 26.3
[2022-09-24 12:19] VITALS: BP 166/85; PULSE 72; RESP 16; TEMP 36.3; O2SAT 94
[2022-09-24 12:50] VITALS: BP 148/83; PULSE 56; RESP 16; O2SAT 97
--- NOTE | 2022-09-24 13:41 | P.BOP_ITS ---
Brief Operative Note Date of Service: 09/24/22 Pre-op diagnosis: Stroke Procedure: Placement of implantable loop recorder Implants: After obtaining full informed consent patient was brought to the minor surgery suite. Patient was then laid on the operating table in supine position. His precordial area was then prepped and draped in a sterile fashion. Patient was then given 2% lidocaine with epinephrine intradermally and subcutaneously in the 4th intercostal space. A small incision was then made. Of LettuceThinner implantable loop recorder with serial number [id number] was then implanted in the subcutaneous space using Seldinger technique. Measured R-wave at 0.4-0.42 mV with P-waves identified. The wound was then closed with Steri-Strips and pressure dressing applied. Surgeon: Enmanuel Cunha MD Anesthesia: local Was an Performance Improvement Analyst used for this Procedure?: No Estimated blood loss (mL): 1 Pathology: none sent Condition: stable Disposition: same day
== END 2022-09-24 11:47 | disposition home or self-care (01) ==
LOC: HO.MS 11:46
PROVIDERS: PCP Internal Medicine; Visit Provider Internal Medicine Cardiovascular Disease
PROC: (CPT 33285; principal; 2022-09-24 12:30)
DX: I63.9 Cerebral infarction, unspecified (principal)
CPT/HCPCS: 33285; C1764

== ENCOUNTER → 2022-09-24 11:46 | Outpatient (BNV) | payer MEDICARE, SELFPAY | PROVIDERS: PCP Internal Medicine; Visit Provider Internal Medicine Cardiovascular Disease | DX: I63.9 Cerebral infarction, unspecified (principal) | CPT/HCPCS: 33285 ==

== ENCOUNTER 2022-10-13 14:00 | Outpatient (AMB) | payer MEDICARE, SELFPAY ==
[2022-10-13 14:18] VITALS: BP 110/72; PULSE 73; BMI 26.3
--- NOTE | 2022-10-13 14:18 | MHC.OFFVIS ---
Intake Vital Signs 10/13/22 14:18 Height 5 ft 9 in Weight 178 lb 2.136 oz BMI 26.3 BP 110/72 Blood Pressure Location Lt brachial Position Sitting Pulse 73 Intake Visit Reasons: follow up loop Intake Note: follow up Car Unloader Helper Required: No Accompanied by: Self / Same As Patient Allergies Zslskoo-RSU-NrI Reductase Inhibitor Adverse Reaction (Unknown, Verified 10/13/22 14:20) Unknown Medication List - Last Reconciled 10/13/22 by Ramesh Madison MD alirocumab (Praluent Pen) 75 mg subcut Q14D aspirin 81 mg PO DAILY cholecalciferol (vitamin D3) (Vitamin D3) 25 mcg PO DAILY pravastatin 20 mg PO DAILY HPI HPI Comments History of Present Illness Details Rm returns for follow-up. In 2021, he was seen regarding stroke. At that time, the history is that he was playing golf and all of sudden had some vertigo. Then diagnosed with cerebellar stroke and he received tPA. Then it seems that he was fully recovered and was discharged home the next day. Overall, quite healthy without any known cardiac issues. Denies any coronary artery disease or myocardial infarction or in fact anything else cardiac related. Not a known hypertensive or diabetic either. Last year, he underwent an echocardiogram as well as 30 day monitor which were unremarkable. However, in the last few weeks he has again noticing palpitations which is a new symptom. No other cardiac symptoms. Following this, he was seen. He underwent transesophageal echocardiogram as well as implantable loop recorder placement. Overall, he feels good. No new complaints. [facility] Medical History High cholesterol Surgical History No pertinent past surgical history Family History Father No problems noted. Mother No problems noted. Social History Household Members: Spouse Housing: House Do you presently have visiting nurse or other home services: No Alcohol intake: current Alcohol intake frequency: does not drink Alcohol type: beer Patient Tobacco Use Status: Never used Tobacco Second Hand Smoke Exposure: No service: No Current occupational status: retired Review of Systems Const Denies weakness ENT Denies dizziness Card Denies chest pain, Denies chest pain with activity, Denies syncope, Denies rapid heart rate, Denies pedal edema, Denies edema, Denies leg edema, Denies lightheadedness, Denies palpitations, Denies dyspnea, Denies dyspnea on exertion and Denies orthopnea Resp Denies cough, Denies dyspnea and Denies dyspnea on exertion GI Denies hematochezia and Denies change in stool character Musc Denies abnormal gait, Denies muscle cramps, Denies muscle weakness, Denies numbness, Denies radiating pain into limb and Denies tingling Neuro Denies abnormal gait, Denies dizziness, Denies syncope, Denies numbness, Denies tingling and Denies weakness Endo Denies palpitations Physical Exam Vital Signs: Last Vital Signs Pulse 73 10/13/22 14:18 BP 110/72 10/13/22 14:18 BMI result Body Mass Index 26.3 Const General: comfortable and no acute distress Orientation/consciousness: patient oriented x3 HEENT Other: Unremarkable Head: Yes normal to inspection Neck Neck: Yes normal visual inspection Chest Chest palpation & inspection: normal inspection of the chest Resp Auscultation: clear to auscultation bilaterally Cardio Palpation: normal PMI Heart sounds: S1 normal heart sound present, S2 normal heart sound present, no gallops, no murmurs and no rubs GI Palpation (GI): Soft to palpation Back/Spine/Pelvis Other: unremarkable Skin General skin exam: no rashes or lesions noted Neuro General: patient oriented x3 Extrem General: Yes normal to inspection Psych Mental Status: mental status grossly normal Assessment & Plan Assessment & Plan (1) Cerebrovascular accident: Code(s): I63.9 - Cerebral infarction, unspecified (2) Abnormal creatine kinase level: Code(s): R74.8 - Abnormal levels of other serum enzymes Plan Cardiac and neurological studies reviewed. Baseline EKG is unremarkable. Brain MRI had reported several small acute infarcts in the right cerebellar hemisphere. Head and neck CTA had shown no significant arterial stenosis in the head or neck. Echocardiogram with LVEF of 60-65%. Mild increase in RV size. Otherwise unremarkable. Bubble study was negative. In the transesophageal echocardiogram, suspected small PFO with minimal shunting and not thought to be the etiology for stroke. Thirty day monitor showed no atrial fibrillation. Occasional PVCs. Implantable loop recorder recently placed and can be monitored for any atrial fibrillation. Overall, he is stable from cardiac. With regard to etiology for stroke, not entirely clear. May remain on Aspirin. Otherwise, he has multiple issues with statins. It seems he has tried simvastatin the past and actually was taking it at the time of stroke. Atorvastatin led to headaches. Pravastatin did not work well. Rosuvastatin made him tired. Hence continue Praluent. Follow-up lipids in due course. Follow-up in 6 months. Coding Level of Care Code Est Pt Level 4 (81467) Diagnoses Cerebrovascular accident I63.9 Abnormal creatine kinase level R74.8
== END 2022-10-13 14:36 | disposition home or self-care (01) ==
PROVIDERS: PCP Internal Medicine; Visit Provider Internal Medicine
DX: I63.9 Cerebral infarction, unspecified (principal); R74.8 Abnormal levels of other serum enzymes
CPT/HCPCS: 99214

== ENCOUNTER → 2022-10-13 14:00 | Outpatient (BNVA) | payer MEDICARE, SELFPAY | PROVIDERS: PCP Internal Medicine; Visit Provider Internal Medicine | DX: Z86.73 Personal history of transient ischemic attack (TIA), and cerebral infarction without residual deficits (principal); R74.8 Abnormal levels of other serum enzymes; Z79.82 Long term (current) use of aspirin | CPT/HCPCS: 99212 ==

== ENCOUNTER → 2022-10-29 23:59 | Outpatient (BNV) | payer MEDICARE, SELFPAY ==
--- NOTE | 2022-11-01 14:34 | A.OFFVIS_ITS ---
Intake Intake Visit Reasons: Remote ILR Check- [employer] Allergies Xntmbpb-UMT-WuU Reductase Inhibitor Adverse Reaction (Unknown, Verified 10/13/22 14:20) Unknown [facility] Medical History High cholesterol Surgical History No pertinent past surgical history Family History Father No problems noted. Mother No problems noted. Social History Household Members: Spouse Housing: House Do you presently have visiting nurse or other home services: No Alcohol intake: current Alcohol intake frequency: does not drink Alcohol type: beer Patient Tobacco Use Status: Never used Tobacco Second Hand Smoke Exposure: No service: No Current occupational status: retired Office Procedures Cardiac Device Check Cardiac Device Check Details: Date of service 10/29/2022; in the current monitoring period, there is no evidence of atrial fibrillation. No atrial fibrilllation during lifetime. [id number] Cardiac Interrogation, subcut cardiac rhythm monitor Procedure code (CPT) selection complete Assessment & Plan Assessment & Plan (1) Cerebrovascular accident: Code(s): I63.9 - Cerebral infarction, unspecified Coding Level of Care Code Procedure Only Diagnoses Cerebrovascular accident I63.9 CPT Codes Cardiac Device Check - Cardiac Device 16: [id number] Cardiac Interrogation, subcut cardiac rhythm monitor ([id number])
== END ==
PROVIDERS: PCP Internal Medicine; Visit Provider Internal Medicine
DX: I63.9 Cerebral infarction, unspecified (principal)
CPT/HCPCS: 93298

== ENCOUNTER → 2022-11-29 23:59 | Outpatient (BNV) | payer MEDICARE, SELFPAY ==
--- NOTE | 2022-12-03 14:31 | MHC.OFFVIS ---
Intake Intake Visit Reasons: Remote ILR Check- [employer] Allergies Vxpdess-SHJ-JdD Reductase Inhibitor Adverse Reaction (Unknown, Verified 10/13/22 14:20) Unknown [facility] Medical History High cholesterol Surgical History No pertinent past surgical history Family History Father No problems noted. Mother No problems noted. Social History Household Members: Spouse Housing: House Do you presently have visiting nurse or other home services: No Alcohol intake: current Alcohol intake frequency: does not drink Alcohol type: beer Patient Tobacco Use Status: Never used Tobacco Second Hand Smoke Exposure: No service: No Current occupational status: retired Office Procedures Cardiac Device Check Cardiac Device Check Details: Date of service 11/29/2022; in the current monitoring period, there is no evidence of atrial fibrillation. No atrial fibrilllation during lifetime. [id number] Cardiac Interrogation, subcut cardiac rhythm monitor Procedure code (CPT) selection complete Assessment & Plan Assessment & Plan (1) Cerebrovascular accident: Code(s): I63.9 - Cerebral infarction, unspecified Coding Level of Care Code Procedure Only Diagnoses Cerebrovascular accident I63.9 CPT Codes Cardiac Device Check - Cardiac Device 16: [id number] Cardiac Interrogation, subcut cardiac rhythm monitor ([id number])
== END ==
PROVIDERS: PCP Internal Medicine; Visit Provider Internal Medicine
DX: I63.9 Cerebral infarction, unspecified (principal)
CPT/HCPCS: 93298

== ENCOUNTER 2022-12-01 08:23 | Outpatient (REF) | payer MEDICARE, SELFPAY ==
[2022-12-01 11:25] LABS: MANUAL DIFF FLAG NO
[2022-12-01 11:39] LABS: Basophils Percent Auto 0.5 % (0-2); Eosinophils Absolute Auto 0.1 X10*3/uL (0.0-0.4); Eosinophils Percent Auto 1.8 % (0-4); Hemoglobin 15.9 g/dl (14.0-18.0); Imm Gran Abs Auto 0.01 X10*3/uL (0.00-0.03); Imm Gran Pct Auto 0.2 % (0.0-0.4); Lymphocytes Absolute Auto 1.6 X10*3/uL (1.2-4.9); Lymphocytes Percent Auto 27.8 % (20-40); Mean Corpuscular HGB Conc 33.8 g/dl (31.0-36.0); Mean Corpuscular Hemoglobin 31.1 pg (27.0-33.0); Mean Corpuscular Volume 91.8 fL (80.0-98.0); Mean Platelet Volume 9.1 fL (9.4-12.4); Monocytes Absolute Auto 0.5 X10*3/uL (0.1-1.2); Neutrophils Absolute Auto 3.5 x10*3/uL (2.0-8.3); Neutrophils Percent Auto 61.7 % (45-73); Platelet Count 274 X10*3/uL (160-400); Red Blood Count 5.12 X10*6/uL (4.60-5.80); Red Cell Distribution Width 12.7 % (11.0-16.0); White Blood Count 5.6 X10*3/uL (4.8-10.8)
[2022-12-01 12:35] LABS: Alanine Aminotransferase 17 U/L (0-40); Albumin Level 4.2 g/dL (3.5-5.0); Alkaline Phosphatase 52 U/L (39-117); Anion Gap 15 (12-20); Aspartate Amino Transferase 23 U/L (5-37); Bilirubin Total 1.2 mg/dL (0.0-1.0); Blood Urea Nitrogen 17 mg/dL (9-16); Calcium 9.5 mg/dL (8.4-10.2); Carbon Dioxide 25 mmol/L (22-29); Chloride 105 mmol/L (96-108); Cholesterol 105 mg/dL (<200); Estimated Glomerular Filt Rate > 60; Glucose Fasting 106 mg/dL (60-99); HDL Cholesterol 50 mg/dL (>40); LDL Cholesterol Calculated 36 mg/dL (<100); Potassium 4.1 mmol/L (3.3-5.1); Sodium 141 mmol/L (135-145); Triglycerides 98 mg/dL (<150)
[2022-12-01 12:40] LABS: Thyroid Stimulating Hormone 1.18 uIU/mL (0.32-4.0)
== END 2022-12-01 08:24 | disposition home or self-care (01) ==
LOC: HO.HMGCLDS 08:23
PROVIDERS: PCP Internal Medicine; Visit Provider Internal Medicine
DX: E78.00 Pure hypercholesterolemia, unspecified (principal); Z86.73 Personal history of transient ischemic attack (TIA), and cerebral infarction without residual deficits
CPT/HCPCS: 36415; 80053; 80061; 84443; 85025

== ENCOUNTER → 2022-12-30 23:59 | Outpatient (BNV) | payer MEDICARE, SELFPAY ==
--- NOTE | 2023-01-04 13:46 | MHC.OFFVIS ---
Intake Intake Visit Reasons: Remote ILR Check- [employer] Allergies Ceqvyrh-IHJ-NeU Reductase Inhibitor Adverse Reaction (Unknown, Verified 10/13/22 14:20) Unknown [facility] Medical History High cholesterol Surgical History No pertinent past surgical history Family History Father No problems noted. Mother No problems noted. Social History Household Members: Spouse Housing: House Do you presently have visiting nurse or other home services: No Alcohol intake: current Alcohol intake frequency: does not drink Alcohol type: beer Patient Tobacco Use Status: Never used Tobacco Second Hand Smoke Exposure: No service: No Current occupational status: retired Office Procedures Cardiac Device Check Cardiac Device Check Details: Date of service 12/30/2022; in the current monitoring period, there is no evidence of atrial fibrillation. [id number]-Cqywvq Cardiac Interrogation, subcut cardiac rhythm monitor Procedure code (CPT) selection complete Assessment & Plan Assessment & Plan (1) Cerebrovascular accident: Code(s): I63.9 - Cerebral infarction, unspecified Coding Level of Care Code Procedure Only Diagnoses Cerebrovascular accident I63.9 CPT Codes Cardiac Device Check - Cardiac Device 16: [id number] Cardiac Interrogation, subcut cardiac rhythm monitor ([id number])
== END ==
PROVIDERS: PCP Internal Medicine; Visit Provider Internal Medicine
DX: I63.9 Cerebral infarction, unspecified (principal); Z95.818 Presence of other cardiac implants and grafts
CPT/HCPCS: 93298

== ENCOUNTER → 2023-01-30 23:59 | Outpatient (BNV) | payer MEDICARE, SELFPAY ==
--- NOTE | 2023-02-03 11:34 | A.OFFVIS_ITS ---
Intake Intake Visit Reasons: Remote ILR Check- [employer] Allergies Rahqypc-ABO-LgE Reductase Inhibitor Adverse Reaction (Unknown, Verified 10/13/22 14:20) Unknown [facility] Medical History High cholesterol Surgical History No pertinent past surgical history Family History Father No problems noted. Mother No problems noted. Social History Household Members: Spouse Housing: House Do you presently have visiting nurse or other home services: No Alcohol intake: current Alcohol intake frequency: does not drink Alcohol type: beer Patient Tobacco Use Status: Never used Tobacco Second Hand Smoke Exposure: No service: No Current occupational status: retired Office Procedures Cardiac Device Check Cardiac Device Check Details: Date of service 01/30/2023; in the current monitoring period, there is no evidence of atrial fibrillation. [id number]-Qdfzts Cardiac Interrogation, subcut cardiac rhythm monitor Procedure code (CPT) selection complete Assessment & Plan Assessment & Plan (1) Cerebrovascular accident: Code(s): I63.9 - Cerebral infarction, unspecified Plan x Coding Level of Care Code Procedure Only Diagnoses Cerebrovascular accident I63.9 CPT Codes Cardiac Device Check - Cardiac Device 16: [id number] Cardiac Interrogation, subcut cardiac rhythm monitor ([id number])
== END ==
PROVIDERS: PCP Internal Medicine; Visit Provider Internal Medicine
DX: I63.9 Cerebral infarction, unspecified (principal)
CPT/HCPCS: 93298

== ENCOUNTER → 2023-03-02 23:59 | Outpatient (BNV) | payer MEDICARE, SELFPAY ==
--- NOTE | 2023-03-03 19:11 | A.OFFVIS_ITS ---
Intake Intake Visit Reasons: Remote ILR Check- [employer] Allergies Dgzcpci-TPC-VuB Reductase Inhibitor Adverse Reaction (Unknown, Verified 10/13/22 14:20) Unknown [facility] Medical History High cholesterol Surgical History No pertinent past surgical history Family History Father No problems noted. Mother No problems noted. Social History Household Members: Spouse Housing: House Do you presently have visiting nurse or other home services: No Alcohol intake: current Alcohol intake frequency: does not drink Alcohol type: beer Patient Tobacco Use Status: Never used Tobacco Second Hand Smoke Exposure: No service: No Current occupational status: retired Office Procedures Cardiac Device Check Cardiac Device Check Details: Date of service 03/02/2023; in the current monitoring period, there is no evidence of atrial fibrillation. [id number]-Kmlvca Cardiac Interrogation, subcut cardiac rhythm monitor Procedure code (CPT) selection complete Assessment & Plan Assessment & Plan (1) Cerebrovascular accident: Code(s): I63.9 - Cerebral infarction, unspecified Plan x Coding Level of Care Code Procedure Only Diagnoses Cerebrovascular accident I63.9 CPT Codes Cardiac Device Check - Cardiac Device 16: [id number]-Zoawci Cardiac Interrogation, subcut cardiac rhythm monitor ([id number])
== END ==
PROVIDERS: PCP Internal Medicine; Visit Provider Internal Medicine
DX: I63.9 Cerebral infarction, unspecified (principal); Z95.818 Presence of other cardiac implants and grafts
CPT/HCPCS: 93298

== ENCOUNTER → 2023-04-02 23:59 | Outpatient (BNV) | payer MEDICARE, SELFPAY ==
--- NOTE | 2023-04-08 18:55 | MHC.OFFVIS ---
Intake Intake Visit Reasons: Remote ILR Check- [employer] Allergies Nsnhsrt-TFQ-SuM Reductase Inhibitor Adverse Reaction (Unknown, Verified 10/13/22 14:20) Unknown [facility] Medical History High cholesterol Surgical History No pertinent past surgical history Family History Father No problems noted. Mother No problems noted. Social History Household Members: Spouse Housing: House Do you presently have visiting nurse or other home services: No Alcohol intake: current Alcohol intake frequency: does not drink Alcohol type: beer Patient Tobacco Use Status: Never used Tobacco Second Hand Smoke Exposure: No service: No Current occupational status: retired Office Procedures Cardiac Device Check Cardiac Device Check Details: Date of service 04/02/2023; in the current monitoring period, there is no evidence of atrial fibrillation. [id number] Cardiac Interrogation, subcut cardiac rhythm monitor Procedure code (CPT) selection complete Assessment & Plan Assessment & Plan (1) Cerebrovascular accident: Code(s): I63.9 - Cerebral infarction, unspecified Plan x Coding Level of Care Code Procedure Only Diagnoses Cerebrovascular accident I63.9 CPT Codes Cardiac Device Check - Cardiac Device 16: [id number] Cardiac Interrogation, subcut cardiac rhythm monitor ([id number])
== END ==
PROVIDERS: PCP Internal Medicine; Visit Provider Internal Medicine
DX: I63.9 Cerebral infarction, unspecified (principal); Z95.818 Presence of other cardiac implants and grafts
CPT/HCPCS: 93298

== ENCOUNTER 2023-04-14 12:41 | Outpatient (AMB) | payer MEDICARE, SELFPAY ==
[2023-04-14 12:52] VITALS: BP 110/80; PULSE 81; BMI 27.0
--- NOTE | 2023-04-14 12:52 | A.OFFVIS_ITS ---
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 In 2021, he was seen regarding stroke. At that time, the history is that he was playing golf and all of sudden had some vertigo. Then diagnosed with cerebellar stroke and he received tPA. Then it seems that he fully recovered. Overall, quite healthy without any known cardiac issues. Denies any coronary artery disease or myocardial infarction or in fact anything else cardiac related. Not a known hypertensive or diabetic either. Overall, he is doing good. No new concerns. He has an implantable loop recorder in place. [facility] Medical History High cholesterol Surgical History No pertinent past surgical history Family History Father No problems noted. Mother No problems noted. Social History Household Members: Spouse Housing: House Do you presently have visiting nurse or other home services: No Alcohol intake: current Alcohol intake frequency: does not drink Alcohol type: beer Patient Tobacco Use Status: Never used Tobacco Second Hand Smoke Exposure: No service: No Current occupational status: retired Review of Systems Const Denies chills, Denies fatigue, Denies fever(s), Denies frequent falls, Denies weakness, Denies weight gain and Denies weight loss ENT Denies dizziness Card Denies chest pain, Denies leg edema, Denies lightheadedness, Denies palpitations, Denies dyspnea and Denies dyspnea on exertion Resp Denies cough, Denies dyspnea and Denies dyspnea on exertion GI Denies hematochezia Musc Denies abnormal gait, Denies muscle weakness, Denies numbness, Denies radiating pain into limb and Denies tingling Neuro Denies abnormal gait, Denies dizziness, Denies frequent falls, Denies numbness, Denies tingling and Denies weakness Endo Denies fatigue and Denies palpitations Physical Exam Vital Signs: Last Vital Signs Pulse 81 04/14/23 12:52 BP 110/80 04/14/23 12:52 BMI result Body Mass Index 27.0 Const General: comfortable and no acute distress Orientation/consciousness: patient oriented x3 HEENT Other: Unremarkable Head: Yes normal to inspection Neck Neck: Yes normal visual inspection Chest Chest palpation & inspection: normal inspection of the chest Resp Auscultation: clear to auscultation bilaterally Cardio Palpation: normal PMI Heart sounds: S1 normal heart sound present, S2 normal heart sound present, no gallops, no murmurs and no rubs GI Palpation (GI): Soft to palpation Back/Spine/Pelvis Other: unremarkable Skin General skin exam: no rashes or lesions noted Neuro General: patient oriented x3 Extrem General: Yes normal to inspection Psych Mental Status: mental status grossly normal Office Procedures EKG Details: EKG with sinus rhythm at 81/Min; no significant ST-T changes and otherwise unremarkable[place] [id number], Complete Assessment & Plan Assessment & Plan (1) Cerebrovascular accident: Code(s): I63.9 - Cerebral infarction, unspecified (2) Hyperlipidemia, unspecified: Code(s): E78.5 - Hyperlipidemia, unspecified (3) Statin intolerance: Code(s): Z78.9 - Other specified health status Plan Cardiac and neurological studies reviewed. Baseline EKG is unremarkable. Brain MRI had reported several small acute infarcts in the right cerebellar hemisphere. Head and neck CTA had shown no significant arterial stenosis in the head or neck. Echocardiogram with LVEF of 60-65%. Mild increase in RV size. Otherwise unremarkable. Bubble study was negative. In the transesophageal echocardiogram, suspected small PFO with minimal shunting and not thought to be the etiology for stroke. 30 day monitor showed no atrial fibrillation. Occasional PVCs. Implantable loop recorder monitoring also so far unremarkable. Overall, he is stable from cardiac. With regard to etiology for stroke, not entirely clear. May remain on Aspirin. Otherwise, he has multiple issues with statins. It seems he has tried simvastatin in the past and actually was taking it at the time of stroke. Atorvastatin led to headaches. Pravastatin did not work well. Rosuvastatin made him tired. Hence he is on Repatha. Lipids are significantly better. Last LDL is only the 30s. Previously as much as 159 mg/dL. Plan to follow-up in 1 year. In the interim, he will call with concerns. Total time spent including review of data, counseling, documentation, coordination of care 31 minutes. Coding Level of Care Code Est Pt Level 4 (67561) Diagnoses Cerebrovascular accident I63.9 Hyperlipidemia, unspecified E78.5 Statin intolerance Z78.9 CPT Codes EKG - CPT: 66602-Xqllknyisfjfaqbqy, Complete ([id number])
== END 2023-04-14 13:16 | disposition home or self-care (01) ==
PROVIDERS: PCP Internal Medicine; Visit Provider Internal Medicine
DX: I63.9 Cerebral infarction, unspecified (principal); E78.5 Hyperlipidemia, unspecified; Z78.9 Other specified health status
CPT/HCPCS: 93010; 99214

== ENCOUNTER → 2023-04-14 12:41 | Outpatient (BNVA) | payer MEDICARE, SELFPAY | PROVIDERS: PCP Internal Medicine; Visit Provider Internal Medicine | DX: Z86.73 Personal history of transient ischemic attack (TIA), and cerebral infarction without residual deficits (principal); E78.5 Hyperlipidemia, unspecified; Z79.82 Long term (current) use of aspirin; Z78.9 Other specified health status; Z95.818 Presence of other cardiac implants and grafts | CPT/HCPCS: 93005; 99212 ==

== ENCOUNTER → 2023-05-03 23:59 | Outpatient (BNV) | payer MEDICARE, SELFPAY ==
--- NOTE | 2023-05-10 18:51 | MHC.OFFVIS ---
Intake Intake Visit Reasons: Remote ILR Check- [employer] Allergies Odssayo-NQO-WgY Reductase Inhibitor Adverse Reaction (Unknown, Verified 10/13/22 14:20) Unknown [facility] Medical History High cholesterol Surgical History No pertinent past surgical history Family History Father No problems noted. Mother No problems noted. Social History Household Members: Spouse Housing: House Do you presently have visiting nurse or other home services: No Alcohol intake: current Alcohol intake frequency: does not drink Alcohol type: beer Patient Tobacco Use Status: Never used Tobacco Second Hand Smoke Exposure: No service: No Current occupational status: retired Office Procedures Cardiac Device Check Cardiac Device Check Details: Date of service 05/03/2023; in the current monitoring period, there is no evidence of atrial fibrillation. [id number] Cardiac Interrogation, subcut cardiac rhythm monitor Procedure code (CPT) selection complete Assessment & Plan Assessment & Plan (1) History of stroke: Code(s): Z86.73 - Personal history of transient ischemic attack (TIA), and cerebral infarction without residual deficits (2) Cerebrovascular accident: Code(s): I63.9 - Cerebral infarction, unspecified Plan x Coding Level of Care Code Procedure Only Diagnoses History of stroke Z86.73 Cerebrovascular accident I63.9 CPT Codes Cardiac Device Check - Cardiac Device 16: [id number] Cardiac Interrogation, subcut cardiac rhythm monitor ([id number])
== END ==
PROVIDERS: PCP Internal Medicine; Visit Provider Internal Medicine
DX: Z86.73 Personal history of transient ischemic attack (TIA), and cerebral infarction without residual deficits (principal); I63.9 Cerebral infarction, unspecified
CPT/HCPCS: 93298

== ENCOUNTER 2023-06-03 07:28 | Outpatient (REF) | payer MEDICARE, SELFPAY ==
[2023-06-03 10:20] LABS: MANUAL DIFF FLAG NO
[2023-06-03 10:31] LABS: Basophils Percent Auto 0.3 % (0-2); Eosinophils Absolute Auto 0.1 X10*3/uL (0.0-0.4); Eosinophils Percent Auto 1.7 % (0-4); Hematocrit 46.6 % (42.0-52.0); Hemoglobin 15.8 g/dl (14.0-18.0); Imm Gran Abs Auto 0.01 X10*3/uL (0.00-0.03); Imm Gran Pct Auto 0.2 % (0.0-0.4); Lymphocytes Absolute Auto 1.9 X10*3/uL (1.2-4.9); Lymphocytes Percent Auto 31.9 % (20-40); Mean Corpuscular HGB Conc 33.9 g/dl (31.0-36.0); Mean Corpuscular Volume 91.4 fL (80.0-98.0); Mean Platelet Volume 8.9 fL (9.4-12.4); Monocytes Absolute Auto 0.5 X10*3/uL (0.1-1.2); Neutrophils Absolute Auto 3.5 x10*3/uL (2.0-8.3); Neutrophils Percent Auto 57.9 % (45-73); Platelet Count 275 X10*3/uL (160-400); Red Cell Distribution Width 12.9 % (11.0-16.0)
[2023-06-03 10:52] LABS: Alanine Aminotransferase 20 U/L (0-40); Albumin Level 4.1 g/dL (3.5-5.0); Alkaline Phosphatase 59 U/L (39-117); Anion Gap 11 (12-20); Aspartate Amino Transferase 25 U/L (5-37); Bilirubin Total 1.2 mg/dL (0.0-1.0); Blood Urea Nitrogen 17 mg/dL (9-16); Calcium 9.3 mg/dL (8.4-10.2); Carbon Dioxide 27 mmol/L (22-29); Chloride 107 mmol/L (96-108); Cholesterol 91 mg/dL (<200); Estimated Glomerular Filt Rate > 60; Glucose Fasting 119 mg/dL (60-99); HDL Cholesterol 50 mg/dL (>40); LDL Cholesterol Calculated 27 mg/dL (<100); Potassium 4.6 mmol/L (3.3-5.1); Sodium 140 mmol/L (135-145); Total Protein 6.9 g/dL (6.5-8.0); Triglycerides 73 mg/dL (<150)
[2023-06-03 11:07] LABS: PSA,Total (Free>4and<10) 2.22 ng/mL (0.00-4.00)
[2023-06-03 11:17] LABS: Thyroid Stimulating Hormone 0.92 uIU/mL (0.32-4.0); Vitamin D 25-OH Total 46.9 ng/mL (>30)
== END 2023-06-03 07:29 | disposition home or self-care (01) ==
LOC: HO.HMGCLDS 07:28
PROVIDERS: PCP Internal Medicine; Visit Provider Internal Medicine
DX: Z00.00 Encounter for general adult medical examination without abnormal findings (principal); Z12.5 Encounter for screening for malignant neoplasm of prostate; E78.00 Pure hypercholesterolemia, unspecified; E55.9 Vitamin D deficiency, unspecified; Z86.73 Personal history of transient ischemic attack (TIA), and cerebral infarction without residual deficits
CPT/HCPCS: 36415; 80053; 80061; 82306; 84153; 84443; 85025

== ENCOUNTER → 2023-07-04 23:59 | Outpatient (BNV) | payer MEDICARE, SELFPAY ==
--- NOTE | 2023-08-05 21:42 | A.OFFVIS_ITS ---
Intake Visit Reasons: Remote ILR Check- [employer] Allergies Yilhqlx-KKH-BeY Reductase Inhibitor Adverse Reaction (Unknown, Verified 10/13/22 14:20) Unknown [facility] Medical History (Updated 07/21/23 @ 07:01 by Irma Muller RN) CVA (cerebral vascular accident) High cholesterol Surgical History (Updated 07/21/23 @ 07:01 by Irma Muller RN) H/O colonoscopy No pertinent past surgical history Family History Father No problems noted. Mother No problems noted. Social History Household Members: Spouse Housing: House Do you presently have visiting nurse or other home services: No Alcohol intake: current Alcohol intake frequency: does not drink Alcohol type: beer Patient Tobacco Use Status: Never used Tobacco Second Hand Smoke Exposure: No Use of substances other than those prescribed or required for medical reasons: No Advance Directives: No Advance Directives Information Provided: Yes service: No Current occupational status: retired Office Procedures Cardiac Device Check Cardiac Device Check Details: Date of service 07/04/2023; in the current monitoring period, there is no evidence of atrial fibrillation. [id number] Cardiac Interrogation, subcut cardiac rhythm monitor Procedure code (CPT) selection complete Assessment & Plan Assessment & Plan (1) Cerebrovascular accident: Code(s): I63.9 - Cerebral infarction, unspecified Category: Medical Plan x Coding Level of Care Code Procedure Only Diagnoses Cerebrovascular accident I63.9 CPT Codes Cardiac Device Check - Cardiac Device 16: [id number] Cardiac Interrogation, subcut cardiac rhythm monitor ([id number])
== END ==
PROVIDERS: PCP Internal Medicine; Visit Provider Internal Medicine
DX: I48.91 Unspecified atrial fibrillation (principal); Z95.818 Presence of other cardiac implants and grafts
CPT/HCPCS: 93298

== ENCOUNTER 2023-07-22 08:28 | Day surgery (SDC) | payer MEDICARE, SELFPAY ==
[2023-07-21 07:07] VITALS: BMI 27.2
--- NOTE | 2023-07-22 08:30 | HO.ANESPROP2 ---
Documented by User: Lindsey Roca NP 07/30/23 13:44 HPI - Anesthesia Eval Consult details Narrative: 72yo M for Colonoscopy PMFSH Active Problems Active Problems: All Active Problems Hyperlipidemia, unspecified (Acute) Statin intolerance (Acute) History of stroke (Acute) Lightheadedness (Acute) Left arm numbness (Acute) Abnormal creatine kinase level (Acute) New cerebellar infarct (Acute) Cerebrovascular accident (Acute) Past Medical History Medical History (Updated 07/21/23 @ 07:01 by Irma Muller RN) CVA (cerebral vascular accident) High cholesterol Family History Family History Father No problems noted. Mother No problems noted. Surgical History Surgical History (Updated 07/21/23 @ 07:01 by Irma Muller RN) H/O colonoscopy No pertinent past surgical history Social History Social History Household Members: Spouse Housing: House Do you presently have visiting nurse or other home services: No Alcohol intake: current Alcohol intake frequency: does not drink Alcohol type: beer Patient Tobacco Use Status: Never used Tobacco Second Hand Smoke Exposure: No Use of substances other than those prescribed or required for medical reasons: No Advance Directives: No Advance Directives Information Provided: Yes service: No Current occupational status: retired [employer] Allergies Allergy/AdvReac Type Severity Reaction Status Date / Time Yyhsrkx-HVV-HdY Reductase AdvReac Unknown Unknown Verified 10/13/22 14:20 Inhibitor Home Medications ?Medication ?Instructions ?Recorded ?Confirmed ?Last Taken ?Type cholecalciferol (vitamin D3) 25 25 mcg PO DAILY 05/17/21 07/21/23 05/16/21 History mcg (1,000 unit) tablet (Vitamin D3) pravastatin 20 mg tablet 40 mg PO DAILY 10/13/22 07/21/23 Unknown History Exam Height,Weight and Vital Signs: Height 5 ft 9 in Weight 83.461 kg Pertinent Lab Results Pertinent Lab Results: Laboratory Tests 06/03/23 06/03/23 07:34 09:34 WBC 6.0 Hgb 15.8 Hct 46.6 Plt Count 275 Sodium 140 Potassium 4.6 Chloride 107 Carbon Dioxide 27 BUN 17 H Creatinine 1.00 Narrative Narrative: Cardiac Device Check - ILR Details: Date of service 05/03/2023; in the current monitoring period, there is no evidence of atrial fibrillation. [id number] Cardiac Interrogation, subcut cardiac rhythm monitor EKG 03/2023 NSR @ 81 Assessment and Plan Assessment Anesthesia Assessment: Chart Reviewed Documented by User: Brenda Wynn, DO 08/04/23 09:00 PMFSH Past Medical History Medical History (Updated 07/21/23 @ 07:01 by Irma Muller RN) CVA (cerebral vascular accident) High cholesterol Family History Family History Father No problems noted. Mother No problems noted. Family history of problems with anesthesia: No Surgical History Surgical History (Updated 07/21/23 @ 07:01 by Irma Muller RN) H/O colonoscopy No pertinent past surgical history History of Problems with Anesthesia: No Social History Social History Household Members: Spouse Housing: House Do you presently have visiting nurse or other home services: No Alcohol intake: current Alcohol intake frequency: does not drink Alcohol type: beer Patient Tobacco Use Status: Never used Tobacco Second Hand Smoke Exposure: No Use of substances other than those prescribed or required for medical reasons: No Advance Directives: No Advance Directives Information Provided: Yes service: No Current occupational status: retired Meds Allergies Allergy/AdvReac Type Severity Reaction Status Date / Time Vauzmio-UNX-QfR Reductase AdvReac Unknown Unknown Verified 10/13/22 14:20 Inhibitor Home Medications ?Medication ?Instructions ?Recorded ?Confirmed ?Last Taken ?Type cholecalciferol (vitamin D3) 25 25 mcg PO DAILY 05/17/21 07/21/23 05/16/21 History mcg (1,000 unit) tablet (Vitamin D3) pravastatin 20 mg tablet 40 mg PO DAILY 10/13/22 07/21/23 Unknown History Exam Exam Date and Time: July 22, 2023 Airway Mallampati Class: II TM Dist: >3cm Neck ROM: Full Heart: S1S2 Lungs: CTAB Assessment and Plan Assessment Anesthesia Assessment: Anesthesia Plan Discussed and Chart Reviewed Final Anesthetic Review Family History of Problems with Anesthesia: No History of Problems with Anesthesia: No NPO: Yes ASA Class: II Final Preanesthetic Review: No Changes in Pt Med Stat, Meds/Allgs Chart Reviewed, Consent Obtained/Reviewed and Anes Risks/Benef Reviewed Patient Risk: Low Procedure Risk: Low Anesthetic Plan Anesthetic Plan: MAC: and Agree w/ Assess. and Plan Disposition: Standard PACU
[2023-07-22 08:42] VITALS: BMI 26.4
[2023-07-22 08:53] VITALS: BP 143/85; PULSE 58; RESP 16; TEMP 36.3; O2SAT 97
[2023-07-22] MEDS: Lactated Ringers 1,000 ML 100 ML IVCONT (09:02)
[2023-07-22 10:23] VITALS: BP 104/57; PULSE 53; RESP 16; TEMP 36.1; O2SAT 95
--- NOTE | 2023-07-22 10:25 | P.BOP_ITS ---
Brief Operative Note Date of Service: 07/22/23 Pre-op diagnosis: Screening Post-op diagnosis: other (Colon polyp) Procedure: Colonoscopy to the cecum and TI with hot snare polypectomy with placement of 1 Resolution clip at 60cm Surgeon: Esvin Gibbons MD Anesthesia: MAC Was an Lettuce Trimmer used for this Procedure?: No Estimated blood loss (mL): 0 Pathology: other (A. Polyp at 60cm) Condition: stable Disposition: PACU
[2023-07-22 10:38] VITALS: BP 118/67; PULSE 52; RESP 16; TEMP 36.1; O2SAT 99
--- NOTE | 2023-07-22 11:32 | OP_ITS ---
DATE OF SERVICE: 07/22/2023 SURGEON: Esvin Gibbons MD INDICATIONS: The patient presents for evaluation of colorectal cancer screening and personal history of colon polyps. Full consent has been obtained from him for this, including risks of bleeding and perforation. PREOPERATIVE DIAGNOSIS: POSTOPERATIVE DIAGNOSIS: PROCEDURE PERFORMED: Colonoscopy to the cecum and terminal ileum with hot snare polypectomy and placement of 1 Resolution clip. ESTIMATED BLOOD LOSS: COMPLICATIONS: ANESTHESIA: Monitored anesthesia care. ASSISTANTS: SPECIMENS: PREOPERATIVE DIAGNOSES: Colorectal cancer screening and personal history of colon polyps. POSTOPERATIVE DIAGNOSES: Colorectal cancer screening, personal history of colon polyps, colon polyp, diverticulosis, and internal hemorrhoids. DESCRIPTION OF PROCEDURE: The patient was placed in the left lateral decubitus position. The digital rectal exam revealed no abnormalities. The Olympus video pediatric colonoscope was then entered into the rectum and advanced easily to the cecum. Once in the cecum, I did identify normal-appearing cecal pouch with appendiceal orifice and a normal-appearing ileocecal valve. The terminal ileum was cannulated and appeared normal. Scope was withdrawn back in the colon. The entire cecum and ileocecal valve appeared normal. The scope was then slowly withdrawn assessing all mucosal surfaces carefully. Preparation was excellent. At the region of 60 cm, was an approximately 10 mm polyp on a short stalk, which was removed by hot snare polypectomy and recovered by suction. The polypectomy site appeared clean, without any sign of residual polyp nor bleeding. A single Resolution clip was applied with good deployment and good hemostasis. I did not visualize any other polyps, colitis, nor angiodysplasias. There was a moderate amount of sigmoid diverticulosis. In the rectum, scope was retroflexed, visualizing internal hemorrhoids, but no other pathology. The rectal mucosa appeared normal. The scope was straightened and withdrawn from the patient. He tolerated the procedure well and was returned to the recovery area in stable condition. IMPRESSION: 1. Colon polyp. 2. Diverticulosis. 3. Internal hemorrhoids. PLAN: The results of the pathology will be checked. I would recommend a repeat colonoscopy in 5 years. He was advised to resume his aspirin in 24 hours. He was advised not to use any NSAIDs for 1 week. He will, otherwise, see me on a p.r.n. basis. MD TACOS Bonner/YUNI / [id number]
--- NOTE | 2023-07-23 06:26 | PC.NURSE ---
24hr update documented in paper chart.
== END 2023-07-22 11:36 | disposition home or self-care (01) ==
PROVIDERS: PCP Internal Medicine; Visit Provider Internal Medicine
PROC: 0DJD8ZZ Inspection of Lower Intestinal Tract, Via Natural or Artificial Opening Endoscopic (ICD-10-PCS; CPT 45378; principal; 2023-07-22 09:30)
DX: Z12.11 Encounter for screening for malignant neoplasm of colon (principal); D12.6 Benign neoplasm of colon, unspecified; K57.30 Diverticulosis of large intestine without perforation or abscess without bleeding; K64.8 Other hemorrhoids; Z86.010 Personal history of colon polyps; Z86.73 Personal history of transient ischemic attack (TIA), and cerebral infarction without residual deficits; Z79.82 Long term (current) use of aspirin
CPT/HCPCS: 45385; 88305; J2704

== ENCOUNTER → 2023-08-04 23:59 | Outpatient (BNV) | payer MEDICARE, SELFPAY ==
--- NOTE | 2023-08-12 09:00 | MHC.OFFVIS ---
Intake Visit Reasons: Remote ILR Check- [employer] Allergies Cqikzmh-FZP-CrO Reductase Inhibitor Adverse Reaction (Unknown, Verified 10/13/22 14:20) Unknown [facility] Medical History (Updated 07/21/23 @ 07:01 by Irma Muller RN) CVA (cerebral vascular accident) High cholesterol Surgical History (Updated 07/21/23 @ 07:01 by Irma Muller RN) H/O colonoscopy No pertinent past surgical history Family History Father No problems noted. Mother No problems noted. Social History Household Members: Spouse Housing: House Do you presently have visiting nurse or other home services: No Alcohol intake: current Alcohol intake frequency: does not drink Alcohol type: beer Patient Tobacco Use Status: Never used Tobacco Second Hand Smoke Exposure: No Use of substances other than those prescribed or required for medical reasons: No Advance Directives: No Advance Directives Information Provided: Yes service: No Current occupational status: retired Office Procedures Cardiac Device Check Cardiac Device Check Details: Date of service 08/04/2023; in the current monitoring period, there is no evidence of atrial fibrillation. One pause noted for 4 seconds- at 13:55 hours. [id number] Cardiac Interrogation, subcut cardiac rhythm monitor Procedure code (CPT) selection complete Assessment & Plan Assessment & Plan (1) Cerebrovascular accident: Code(s): I63.9 - Cerebral infarction, unspecified Category: Medical Plan x Coding Level of Care Code Procedure Only Diagnoses Cerebrovascular accident I63.9 CPT Codes Cardiac Device Check - Cardiac Device 16: [id number] Cardiac Interrogation, subcut cardiac rhythm monitor ([id number])
== END ==
PROVIDERS: PCP Internal Medicine; Visit Provider Internal Medicine
DX: I63.9 Cerebral infarction, unspecified (principal); Z95.818 Presence of other cardiac implants and grafts
CPT/HCPCS: 93298

== ENCOUNTER → 2023-09-04 23:59 | Outpatient (BNV) | payer MEDICARE, SELFPAY ==
--- NOTE | 2023-10-04 18:54 | A.OFFVIS_ITS ---
Intake Visit Reasons: Remote ILR- [employer] Allergies Svyczcm-BZO-SgI Reductase Inhibitor Adverse Reaction (Unknown, Verified 10/13/22 14:20) Unknown [facility] Medical History (Updated 07/21/23 @ 07:01 by Irma Muller RN) CVA (cerebral vascular accident) High cholesterol Surgical History (Updated 07/21/23 @ 07:01 by Irma Muller RN) H/O colonoscopy No pertinent past surgical history Family History Father No problems noted. Mother No problems noted. Social History Household Members: Spouse Housing: House Do you presently have visiting nurse or other home services: No Alcohol intake: current Alcohol intake frequency: does not drink Alcohol type: beer Patient Tobacco Use Status: Never used Tobacco Second Hand Smoke Exposure: No Use of substances other than those prescribed or required for medical reasons: No Advance Directives: No Advance Directives Information Provided: Yes service: No Current occupational status: retired Office Procedures Cardiac Device Check Cardiac Device Check Details: Date of service 09/04/2023; in the current monitoring period, there is no evidence of atrial fibrillation. [id number] Cardiac Interrogation, subcut cardiac rhythm monitor Procedure code (CPT) selection complete Assessment & Plan Assessment & Plan (1) Cerebrovascular accident: Code(s): I63.9 - Cerebral infarction, unspecified Category: Medical Plan x Coding Level of Care Code Procedure Only Diagnoses Cerebrovascular accident I63.9 CPT Codes Cardiac Device Check - Cardiac Device 16: [id number] Cardiac Interrogation, subcut cardiac rhythm monitor ([id number])
== END ==
PROVIDERS: PCP Internal Medicine; Visit Provider Internal Medicine
DX: I63.9 Cerebral infarction, unspecified (principal); Z95.818 Presence of other cardiac implants and grafts
CPT/HCPCS: 93298

== ENCOUNTER → 2023-10-05 23:59 | Outpatient (BNV) | payer MEDICARE, SELFPAY ==
--- NOTE | 2023-10-13 09:12 | A.OFFVIS_ITS ---
Intake Visit Reasons: Remote ILR check- [employer] Allergies Nyvhrnm-WTF-UsZ Reductase Inhibitor Adverse Reaction (Unknown, Verified 10/13/22 14:20) Unknown [facility] Medical History (Updated 07/21/23 @ 07:01 by Irma Muller RN) CVA (cerebral vascular accident) High cholesterol Surgical History (Updated 07/21/23 @ 07:01 by Irma Muller RN) H/O colonoscopy No pertinent past surgical history Family History Father No problems noted. Mother No problems noted. Social History Household Members: Spouse Housing: House Do you presently have visiting nurse or other home services: No Alcohol intake: current Alcohol intake frequency: does not drink Alcohol type: beer Patient Tobacco Use Status: Never used Tobacco Second Hand Smoke Exposure: No Use of substances other than those prescribed or required for medical reasons: No Advance Directives: No Advance Directives Information Provided: Yes service: No Current occupational status: retired Office Procedures Cardiac Device Check Cardiac Device Check Details: Date of service 10/05/2023; in the current monitoring period, there is no evidence of atrial fibrillation. 40011-Exuxip Cardiac Interrogation, subcut cardiac rhythm monitor Procedure code (CPT) selection complete Assessment & Plan Assessment & Plan (1) Cerebrovascular accident: Code(s): I63.9 - Cerebral infarction, unspecified Category: Medical Plan x Coding Level of Care Code Procedure Only Diagnoses Cerebrovascular accident I63.9 CPT Codes Cardiac Device Check - Cardiac Device 16: 51354-Rjesdt Cardiac Interrogation, subcut cardiac rhythm monitor ([id number])
== END ==
PROVIDERS: PCP Internal Medicine; Visit Provider Internal Medicine
DX: I63.9 Cerebral infarction, unspecified (principal); Z95.818 Presence of other cardiac implants and grafts
CPT/HCPCS: 93298

== ENCOUNTER → 2023-11-05 23:59 | Outpatient (BNV) | payer MEDICARE, SELFPAY ==
--- NOTE | 2023-11-15 13:08 | MHC.OFFVIS ---
Intake Visit Reasons: Remote ILR Check- [employer] Allergies Flnuwdo-RLT-IwK Reductase Inhibitor Adverse Reaction (Unknown, Verified 10/13/22 14:20) Unknown [facility] Medical History (Updated 11/15/23 @ 13:10 by Ramesh Madison MD) CVA (cerebral vascular accident) High cholesterol Surgical History (Updated 07/21/23 @ 07:01 by Irma Muller RN) H/O colonoscopy No pertinent past surgical history Family History Father No problems noted. Mother No problems noted. Social History Household Members: Spouse Housing: House Do you presently have visiting nurse or other home services: No Alcohol intake: current Alcohol intake frequency: does not drink Alcohol type: beer Patient Tobacco Use Status: Never used Tobacco Second Hand Smoke Exposure: No Use of substances other than those prescribed or required for medical reasons: No Advance Directives: No Advance Directives Information Provided: Yes service: No Current occupational status: retired Office Procedures Cardiac Device Check Cardiac Device Check Details: Date of service 11/05/2023; in the current monitoring period, there is no evidence of atrial fibrillation. [id number] Cardiac Interrogation, subcut cardiac rhythm monitor Procedure code (CPT) selection complete Assessment & Plan Assessment & Plan (1) Implantable loop recorder present: Code(s): Z95.818 - Presence of other cardiac implants and grafts Category: Medical (2) Cerebrovascular accident: Code(s): I63.9 - Cerebral infarction, unspecified Category: Medical Plan x Coding Level of Care Code Procedure Only Diagnoses Implantable loop recorder present Z95.818 Cerebrovascular accident I63.9 CPT Codes Cardiac Device Check - Cardiac Device 16: [id number]-Urzhjf Cardiac Interrogation, subcut cardiac rhythm monitor ([id number])
== END ==
PROVIDERS: PCP Internal Medicine; Visit Provider Internal Medicine
DX: I63.9 Cerebral infarction, unspecified (principal); Z95.818 Presence of other cardiac implants and grafts
CPT/HCPCS: 93298

== ENCOUNTER → 2023-12-06 23:59 | Outpatient (BNV) | payer MEDICARE, SELFPAY ==
--- NOTE | 2023-12-13 11:33 | A.OFFVIS_ITS ---
Intake Visit Reasons: Remote ILR check- [employer] Allergies Ylchnkp-AYV-YdA Reductase Inhibitor Adverse Reaction (Unknown, Verified 10/13/22 14:20) Unknown [facility] Medical History (Updated 11/15/23 @ 13:10 by Ramesh Madison MD) CVA (cerebral vascular accident) High cholesterol Surgical History (Updated 07/21/23 @ 07:01 by Irma Muller RN) H/O colonoscopy No pertinent past surgical history Family History Father No problems noted. Mother No problems noted. Social History Household Members: Spouse Housing: House Do you presently have visiting nurse or other home services: No Alcohol intake: current Alcohol intake frequency: does not drink Alcohol type: beer Patient Tobacco Use Status: Never used Tobacco Second Hand Smoke Exposure: No Use of substances other than those prescribed or required for medical reasons: No Advance Directives: No Advance Directives Information Provided: Yes service: No Current occupational status: retired Office Procedures Cardiac Device Check Cardiac Device Check Details: Date of service 12/06/2023; in the current monitoring period, there is no evidence of atrial fibrillation. [id number] Cardiac Interrogation, subcut cardiac rhythm monitor Procedure code (CPT) selection complete Assessment & Plan Assessment & Plan (1) Implantable loop recorder present: Code(s): Z95.818 - Presence of other cardiac implants and grafts Category: Medical (2) Cerebrovascular accident: Code(s): I63.9 - Cerebral infarction, unspecified Category: Medical Plan x Coding Level of Care Code Procedure Only Diagnoses Implantable loop recorder present Z95.818 Cerebrovascular accident I63.9 CPT Codes Cardiac Device Check - Cardiac Device 16: 28736-Uxqsyb Cardiac Interrogation, subcut cardiac rhythm monitor ([id number])
== END ==
PROVIDERS: PCP Internal Medicine; Visit Provider Internal Medicine
DX: I63.9 Cerebral infarction, unspecified (principal); Z95.818 Presence of other cardiac implants and grafts
CPT/HCPCS: 93298

== ENCOUNTER 2024-01-01 13:51 | Emergency (ER) | payer MEDICARE, SELFPAY ==
[2024-01-01] VITALS (8 sets, daily range): BP systolic 78–149; BP diastolic 54–82; PULSE 88–100; RESP 18–20; TEMP 36.8–37.4; O2SAT 95–97; BMI 26.6
--- NOTE | ~2024-01-01 | XR_ITS ---
EXAMINATION: XR CHEST CLINICAL INFORMATION: Shortness of breath and cough. COMPARISON: Chest radiograph dated June 08, 2015. TECHNIQUE: 2 views of the chest were obtained. FINDINGS: The heart is normal in size. There is a lead left cardiac device along the left heart border. The lungs are clear. No pleural effusion. No pneumothorax. No acute osseous abnormality. There is a surgical clip overlying the left upper quadrant. XR/XR chest 2V IMPRESSION: No acute cardiopulmonary disease. Electronically signed by: Jarocho Tovar DO 01/01/2024 04:32 PM EST
--- NOTE | 2024-01-01 14:58 | ED.GENADULT ---
HPI - General Adult General Chief complaint: Upper Respiratory Symptoms Stated complaint: covid+, fever Time Seen by Provider: 01/01/24 17:10 Source: patient Mode of arrival: ambulatory Limitations: no limitations History of Present Illness ED Provider: Krish MENJIVAR HPI narrative: 73 yold male with pmh of stroke presents to the ED for coughing, chills, mailase, diarrhea, fever, dizziness, and sore throat. Patient recently traveled from [place]. Related Data Home Medications ?Medication ?Instructions ?Recorded ?Confirmed cholecalciferol (vitamin D3) 25 25 mcg PO DAILY 05/17/21 07/21/23 mcg (1,000 unit) tablet (Vitamin D3) pravastatin 20 mg tablet 40 mg PO DAILY 10/13/22 07/21/23 Previous Rx's ?Medication ?Instructions ?Recorded aspirin 81 mg chewable tablet 81 mg PO DAILY #30 tabs 05/18/21 evolocumab 140 mg/mL subcutaneous 140 mg subcut Q2W 30 days #3 mL 11/13/23 pen injector (Repatha SureClick) Allergies Allergy/AdvReac Type Severity Reaction Status Date / Time Xztxpxg-NWX-BdH Reductase AdvReac Unknown Unknown Verified 01/01/24 15:00 Inhibitor Review of Systems Review of Systems: Coughing, URI, malaise, Yes all other systems are reviewed and are negative [facility] Past Medical History Medical History (Updated 01/02/24 @ 00:01 by Devyn Arzola) CVA (cerebral vascular accident) High cholesterol Surgical History (Updated 07/21/23 @ 07:01 by Irma Muller RN) H/O colonoscopy No pertinent past surgical history Family History Family History Father No problems noted. Mother No problems noted. Social History Social History Household Members: Spouse Housing: House Do you presently have visiting nurse or other home services: No Alcohol intake: current Alcohol intake frequency: does not drink Alcohol type: beer Patient Tobacco Use Status: Never used Tobacco Smoked in Last 30 Days: No Second Hand Smoke Exposure: No Advance Directives: No Advance Directives Information Provided: No service: No Current occupational status: retired Physical Exam ED Vital Signs: Vital Signs - 24 hr 01/01/24 14:57 01/01/24 16:57 01/01/24 16:57 Temperature 98.3 F 99.3 F Pulse Rate 91 95 95 Respiratory Rate 20 18 Blood Pressure 136/82 149/80 H 149/80 H Pulse Oximetry 96 95 Oxygen Delivery Method Room Air Room Air 01/01/24 17:00 01/01/24 17:04 01/01/24 18:05 Temperature Pulse Rate 98 100 Respiratory Rate Blood Pressure 124/70 78/54 L Pulse Oximetry 97 Oxygen Delivery Method 01/01/24 20:08 01/01/24 20:08 01/01/24 20:10 Temperature Pulse Rate 88 92 95 Respiratory Rate Blood Pressure 148/81 H 149/76 H 127/68 Pulse Oximetry Oxygen Delivery Method BMI result Body Mass Index 26.6 Const General: cooperative, healthy appearing, comfortable, no acute distress, well developed, alert, awake and Physically active Orientation/consciousness: patient oriented x3 [facility] Head: Yes normal to inspection, Yes No palpable skull fracture present, Yes normocephalic and Yes atraumatic Ears: hearing grossly normal bilaterally, external ears normal, TM's normal bilaterally, TM normal on the right, TM normal on the left, EAC's normal, mastoids normal and no periauricular adenopathy Throat: Yes posterior oropharynx normal, Yes tonsils normal and Yes uvula midline Eyes General: appearance normal, both eyes and all related structures Neck Neck: Yes normal visual inspection, Yes full ROM, Yes no lymphadenopathy, Yes no meningeal signs, Yes trachea midline, Yes supple, No anterior neck swelling and No tender Chest Chest palpation & inspection: normal inspection of the chest and normal palpation of entire chest wall Resp Effort & Inspection: normal respiratory effort and able to speak in complete sentences Auscultation: clear to auscultation bilaterally Cardio Jugular venous distension: no JVD Heart sounds: S1 normal heart sound present and S2 normal heart sound present GI Inspection: Yes normal to inspection Palpation (GI): Soft to palpation, not firm, nontender, no guarding and not rigid General: Yes no CVA tenderness Back/Spine/Pelvis Back: no CVA tenderness and No back tenderness Skin General skin exam: no rashes or lesions noted, elasticity normal and turgor normal Neuro General: patient oriented x3, gait normal, tone normal, moves all extremities, Normal light touch and pain sensation, no meningeal signs, no focal motor deficits, CN's II-XI intact bilaterally and normal sensation to monofilament Extrem General: Yes normal to inspection, Yes full ROM and Yes capillary refill normal Psych Appearance: grossly normal, well kempt and not disheveled Course Course Course Narrative: This is an RME performed by Michelle Sanabria CNP: Additional HPI, ROS, PE not included below will be deferred to primary provider. Patient is a 73-year-old male who presents emergency department for evaluation 2 days with fever, chills, cough, fatigue, sore throat, shortness of breath, dizziness, near-syncope, nausea and dry heaves. Reports took a home COVID-19 test though they were 2 of them have resulted as positive. He contacted his primary care doctor who sent an outpatient prescription for Paxlovid but he has yet to pick this up. Plan: CXR, labs, orthostatic vital signs, viral serologies Reevaluation(s) Reevaluation #1: Patient received in sign-out at change of shift pending re-evaluation repeat orthostatics. The patient is still mildly orthostatic however he is no longer symptomatic when changing positions. I discussed this with the patient. We will discharge the patient with instructions to continue hydrating Time: 20:19 Medications Administered Discontinued Medications Generic Name Dose Route Start Last Admin Trade Name Freq PRN Reason Stop Dose Admin Sodium Chloride 1,000 mls @ 999 mls/hr 01/01/24 17:10 01/01/24 19:00 Ns IV 01/01/24 18:10 Infused .Q1H1M STA Infusion Sodium Chloride 1,000 mls @ 999 mls/hr 01/01/24 17:10 01/01/24 20:08 Ns IV 01/01/24 18:10 Infused .Q1H1M STA Infusion Medical Decision Making Medical Decision Making [facility] Narrative: 73 yold male presents to the ED for URI symptoms. Patient tested positive for COVID. Patient states he is dizzy. NIH score is 0. Negative for any signs of neuro deficits. Patient is orthostatic positive. Patient given 2 L of fluid. We will re-evaluate patient. Chest x-ray normal. 7:08pm: Patient receiving 2nd bag of fluids. Sign out to PA then for repeat orthostatics after fluids. Labs are normal. Patient states feeling better. Differential Diagnosis Differential Diagnoses: The differential diagnosis associated with the presentation includes (COVID, orthostatic hypotension) Admission/Observation Consideration of admission/observation: Escalation of care including admission/observation considered Lab Data MDM Lab Attestation statement: I reviewed the patient's lab results. 01/01/24 15:14 01/01/24 15:14 Labs: Lab Results 01/01/24 Range/Units 15:14 WBC 11.7 H (4.8-10.8) X10*3/uL RBC 5.54 (4.60-5.80) X10*6/uL Hgb 17.6 (14.0-18.0) g/dl Hct 49.8 (42.0-52.0) % MCV 89.9 (80.0-98.0) fL MCH 31.8 (27.0-33.0) pg MCHC 35.3 (31.0-36.0) g/dl RDW 12.9 (11.0-16.0) % Plt Count 223 (160-400) X10*3/uL MPV 8.5 L (9.4-12.4) fL Immature Gran % (Auto) 0.4 (0.0-0.4) % Neut % (Auto) 83.2 H (45-73) % Lymph % (Auto) 7.1 L (20-40) % [place] % (Auto) 8.6 (2-11) % Eos % (Auto) 0.3 (0-4) % Baso % (Auto) 0.4 (0-2) % Lymph # (Auto) 0.8 L (1.2-4.9) X10*3/uL [place] # (Auto) 1.0 (0.1-1.2) X10*3/uL Eos # (Auto) 0.0 (0.0-0.4) X10*3/uL Baso # (Auto) 0.1 (0.0-0.2) X10*3/uL Abs Immat Gran (auto) 0.05 H (0.00-0.03) X10*3/uL Absolute Neuts (auto) 9.8 H (2.0-8.3) x10*3/uL Absolute Nucleated RBC 0.000 (0.0-0.012) X10*3/uL Nucleated RBC % (auto) 0.0 (0.0-0.2) /100WBC PT 13.0 H (10.9-12.4) SEC INR 1.1 (0.9-1.1) Sodium 140 (135-145) mmol/L Potassium 4.5 (3.3-5.1) mmol/L Chloride 105 (96-108) mmol/L Carbon Dioxide 24 (22-29) mmol/L Anion Gap 16 (12-20) BUN 12 (9-16) mg/dL Creatinine 1.26 (0.5-1.4) mg/dL Estim Creat Clear Calc 51.2 Estimated GFR 56 Random Glucose 122 H (60-115) mg/dL Calcium 10.4 H D (8.4-10.2) mg/dL Total Bilirubin 0.9 (0.0-1.0) mg/dL AST 40 H (5-37) U/L ALT 37 (0-40) U/L Alkaline Phosphatase 65 (39-117) U/L Total Protein 7.7 (6.5-8.0) g/dL Albumin 4.6 (3.5-5.0) g/dL Lipase 19 (8-78) U/L Influenza Type A (PCR) NEGATIVE (Negative) Influenza Type B (PCR) NEGATIVE (Negative) RSV RNA Qual (PCR) NEGATIVE (Negative) SARS-CoV-2 RNA (RT-PCR) POSITIVE A (Negative) Independent Historian Clinical information obtained from an independent historian. History obtained from or confirmed by: Spouse () and Other (Patient) External Record Review External record reviewed: Other (Prior visits) Discharge Plan Discharge Clinical Impression: COVID-19, Orthostatic hypotension Patient Disposition: Home, Self-Care Instructions: Hypotension (ED), COVID-19 (Coronavirus Disease 2019) (ED) Additional Instructions: You tested positive for COVID. You also had ortho static hypotension which is why you were given normal saline fluids. Recommend follow-up with your primary care provider. Return to the ED immediately for any weakness, dizziness, vomiting, chest pain, shortness of breath, coughing up blood, calf pain, chest pain on inspiration, any other concerning symptoms. Prescriptions: No Action Repatha SureClick 140 mg/mL pen injector 140 mg subcut Q2W 30 Days Qty: 3 3RF cholecalciferol (vitamin D3) [Vitamin D3] 25 mcg (1,000 unit) Tablet 25 mcg PO DAILY aspirin 81 mg tablet,chewable 81 mg PO DAILY Qty: 30 0RF pravastatin 20 mg tablet 40 mg PO DAILY Stand Alone Forms: Work/School Release Interventions: ED Discharge Assessment Last Done: 01/01/24 20:30 Discharge Date/Time: 01/01/24 20:45 Print Language: Uzbek
--- NOTE | 2024-01-01 15:03 | ECG_ITS ---
Test Reason : SOB Blood Pressure : / mmHG Vent. Rate : 078 BPM Atrial Rate : 078 BPM P-R Int : 136 ms QRS Dur : 092 ms QT Int : 336 ms P-R-T Axes : 053 053 056 degrees QTc Int : 383 ms Normal sinus rhythm Normal ECG When compared with ECG of 17-MAY-2021 13:47, QT has shortened Referred By: Vane Sanabria Electronically Signed By:Larry Purcell
[2024-01-01 15:19] LABS: MANUAL DIFF FLAG NO
[2024-01-01 15:22] LABS: Basophils Absolute Auto 0.1 X10*3/uL (0.0-0.2); Basophils Percent Auto 0.4 % (0-2); Eosinophils Percent Auto 0.3 % (0-4); Hematocrit 49.8 % (42.0-52.0); Hemoglobin 17.6 g/dl (14.0-18.0); Imm Gran Abs Auto 0.05 X10*3/uL (0.00-0.03); Imm Gran Pct Auto 0.4 % (0.0-0.4); Lymphocytes Absolute Auto 0.8 X10*3/uL (1.2-4.9); Lymphocytes Percent Auto 7.1 % (20-40); Mean Corpuscular HGB Conc 35.3 g/dl (31.0-36.0); Mean Corpuscular Hemoglobin 31.8 pg (27.0-33.0); Mean Corpuscular Volume 89.9 fL (80.0-98.0); Mean Platelet Volume 8.5 fL (9.4-12.4); Monocytes Percent Auto 8.6 % (2-11); Neutrophils Absolute Auto 9.8 x10*3/uL (2.0-8.3); Neutrophils Percent Auto 83.2 % (45-73); Platelet Count 223 X10*3/uL (160-400); Red Blood Count 5.54 X10*6/uL (4.60-5.80); Red Cell Distribution Width 12.9 % (11.0-16.0); White Blood Count 11.7 X10*3/uL (4.8-10.8)
[2024-01-01 15:26] LABS: INTERNATIONAL NORM RATIO 1.1 (0.9-1.1)
[2024-01-01 15:44] LABS: Alanine Aminotransferase 37 U/L (0-40); Albumin Level 4.6 g/dL (3.5-5.0); Anion Gap 16 (12-20); Aspartate Amino Transferase 40 U/L (5-37); Bilirubin Total 0.9 mg/dL (0.0-1.0); Blood Urea Nitrogen 12 mg/dL (9-16); Calcium 10.4 mg/dL (8.4-10.2); Carbon Dioxide 24 mmol/L (22-29); Chloride 105 mmol/L (96-108); Creatinine Clr Calc Pharmacy 51.2; Estimated Glomerular Filt Rate 56; Glucose Random 122 mg/dL (60-115); Lipase 19 U/L (8-78); Potassium 4.5 mmol/L (3.3-5.1); Sodium 140 mmol/L (135-145); Total Protein 7.7 g/dL (6.5-8.0)
[2024-01-01 16:01] LABS: Influenza A PCR NEGATIVE (Negative); Influenza B PCR NEGATIVE (Negative); Resp Syncy Virus RNA Qual PCR NEGATIVE (Negative); SARS COV2 PCR INHOUSE POSITIVE (Negative)
[2024-01-01 16:07] LABS: Alkaline Phosphatase 65 U/L (39-117)
[2024-01-01] MEDS: 0.9 % Sodium Chloride 1,000 ML 999 ML IV ×2 (17:32→18:38)
--- NOTE | 2024-01-01 17:36 | PC.NURSE ---
Pt has strong and regular radial pulses with wpd skin. reps are = and nonlabored with clear ls in all morse. pt reports feeling a liitle tired but ofers no other complaints. 20 ga iv est in LAC. alicia is to reeval after 2l IVF.
== END 2024-01-01 20:45 | disposition home or self-care (01) ==
PROVIDERS: Nurse Practitioner Family; Emergency Provider Internal Medicine; PCP Internal Medicine
DX: U07.1 COVID-19 (principal); I95.1 Orthostatic hypotension; R50.9 Fever, unspecified; J02.9 Acute pharyngitis, unspecified; R42 Dizziness and giddiness; R19.7 Diarrhea, unspecified; R05.9 Cough, unspecified
CPT/HCPCS: 0241U; 36415; 71046; 80053; 83690; 85025; 85610; 93005; 96360; 96361; 99284; 99285

== ENCOUNTER → 2024-01-01 15:03 | Outpatient (BNV) | payer MEDICARE, SELFPAY | PROVIDERS: Emergency Provider Internal Medicine; PCP Internal Medicine; Visit Provider Internal Medicine Cardiovascular Disease | DX: R06.02 Shortness of breath (principal) | CPT/HCPCS: 93010 ==

== ENCOUNTER → 2024-01-06 23:59 | Outpatient (BNV) | payer MEDICARE, SELFPAY ==
--- NOTE | 2024-01-17 18:55 | A.OFFVIS_ITS ---
Intake Visit Reasons: Remote ILR check- [employer] Allergies Aibhfly-QGW-UtU Reductase Inhibitor Adverse Reaction (Unknown, Verified 01/01/24 15:00) Unknown [facility] Medical History (Updated 01/02/24 @ 00:01 by Devyn Arzola) CVA (cerebral vascular accident) High cholesterol Surgical History (Updated 07/21/23 @ 07:01 by Irma Muller RN) H/O colonoscopy No pertinent past surgical history Family History Father No problems noted. Mother No problems noted. Social History Household Members: Spouse Housing: House Do you presently have visiting nurse or other home services: No Alcohol intake: current Alcohol intake frequency: does not drink Alcohol type: beer Patient Tobacco Use Status: Never used Tobacco Smoked in Last 30 Days: No Second Hand Smoke Exposure: No Advance Directives: No Advance Directives Information Provided: No service: No Current occupational status: retired Office Procedures Cardiac Device Check Cardiac Device Check Details: Date of service 01/06/2024; in the current monitoring period, there is no evidence of atrial fibrillation. [id number] Cardiac Interrogation, subcut cardiac rhythm monitor Procedure code (CPT) selection complete Assessment & Plan Assessment & Plan (1) Implantable loop recorder present: Code(s): Z95.818 - Presence of other cardiac implants and grafts Category: Medical (2) Cerebrovascular accident: Code(s): I63.9 - Cerebral infarction, unspecified Category: Medical Plan x Coding Level of Care Code Procedure Only Diagnoses Implantable loop recorder present Z95.818 Cerebrovascular accident I63.9 CPT Codes Cardiac Device Check - Cardiac Device 16: [id number]-Kwuyph Cardiac Interrogation, subcut cardiac rhythm monitor ([id number])
== END ==
PROVIDERS: PCP Internal Medicine; Visit Provider Internal Medicine
DX: I63.9 Cerebral infarction, unspecified (principal); Z95.818 Presence of other cardiac implants and grafts
CPT/HCPCS: 93298

== ENCOUNTER 2024-03-01 12:23 | Outpatient (AMB) | payer MEDICARE, SELFPAY ==
--- NOTE | 2024-03-01 12:44 | MHC.PC.OV ---
Vital Signs 03/01/24 12:49 Height 5 ft 8 in Weight 183 lb BMI 27.8 BP 130/78 Blood Pressure Location Lt brachial Pulse 78 Pulse Source Pulse Oximeter Temp 97.2 F Pulse Oximetry (%) 98 Intake Visit Reasons: Chest tightness after eating solid food Intake Note: here for chest tightness feels like he has something caught in throat worse when he eats or drinks feels likehe has to cough Allergies Gssczot-XND-WkV Reductase Inhibitor Adverse Reaction (Unknown, Verified 03/01/24 13:17) Unknown Medication List - Last Reconciled 03/01/24 by Belinda Can PA-C aspirin 81 mg PO DAILY cholecalciferol (vitamin D3) (Vitamin D3) 25 mcg PO DAILY omeprazole 20 mg PO DAILY pravastatin 40 mg PO DAILY PFSH Medical History CVA (cerebral vascular accident) High cholesterol Surgical History H/O colonoscopy (~07/22/23) No pertinent past surgical history Family History Father No problems noted. Mother No problems noted. Social History Household Members: Spouse Housing: House Do you presently have visiting nurse or other home services: No Alcohol intake: current Alcohol intake frequency: does not drink Alcohol type: beer Patient Tobacco Use Status: Never used Tobacco Second Hand Smoke Exposure: No service: No Current occupational status: retired Physical exam (Primary Care) Vital Signs: Last Vital Signs Temp 97.2 F 03/01/24 12:49 Pulse 78 03/01/24 12:49 BP 130/78 03/01/24 12:49 Pulse Ox 98 03/01/24 12:49 BMI result Body Mass Index 27.8 Tobacco/Smoking Status: Tobacco use Status Patient Tobacco Use Status Never used Tobacco 03/01/24 12:45 Coding Level of Care Code New Pt Level 4 (70604) Complex EM visit Add On G2211 Diagnoses Follow-up exam, 3-6 months since previous exam Z09 GERD (gastroesophageal reflux disease) K21.9 Assessment & Plan Assessment & Plan (1) Follow-up exam, 3-6 months since previous exam: Code(s): Z09 - Encounter for follow-up examination after completed treatment for conditions other than malignant neoplasm Category: Medical Plan: Normal exam today. Patient to follow-up in 1 month for re-evaluation after starting omeprazole. (2) GERD (gastroesophageal reflux disease): Code(s): K21.9 - Gastro-esophageal reflux disease without esophagitis Category: Medical Plan Plan - Order chest x-rays to assess for any structural abnormalities. - patient will be started on omeprazole 20 mg daily and follow-up in 1 month to evaluate patient's symptoms. - If symptoms persist GI consult place, potentially with a scope examination. - Consider a swallow study if symptoms persist or indicated by gastroenterology. - Schedule follow-up for May for routine physical examination and repeat lipid panel. - Request blood work to include thyroid function, vitamin D, renal function, potassium, magnesium, and diabetes screening. Orders: Orders Comprehensive Walls. Panel Fast Today E78.5 - Hyperlipidemia, unspecified, K21.9 - Gastro-esophageal reflux disease without esophagitis, Z09 - Encounter for follow-up examination after completed treatment for conditions other than malignant neoplasm, Z78.9 - Other specified health status, Z86.73 - Personal history of transient ischemic attack (TIA), and cerebral infarction without residual deficits Complete Blood Count Auto Diff Today K21.9 - Gastro-esophageal reflux disease without esophagitis, Z09 - Encounter for follow-up examination after completed treatment for conditions other than malignant neoplasm Liver Panel Today E78.5 - Hyperlipidemia, unspecified, I63.9 - Cerebral infarction, unspecified, K21.9 - Gastro-esophageal reflux disease without esophagitis, Z09 - Encounter for follow-up examination after completed treatment for conditions other than malignant neoplasm, Z78.9 - Other specified health status Magnesium Today E78.5 - Hyperlipidemia, unspecified, K21.9 - Gastro-esophageal reflux disease without esophagitis, Z09 - Encounter for follow-up examination after completed treatment for conditions other than malignant neoplasm, Z78.9 - Other specified health status, Z86.73 - Personal history of transient ischemic attack (TIA), and cerebral infarction without residual deficits Hemoglobin A1c Today E78.5 - Hyperlipidemia, unspecified, K21.9 - Gastro-esophageal reflux disease without esophagitis, Z09 - Encounter for follow-up examination after completed treatment for conditions other than malignant neoplasm, Z78.9 - Other specified health status, Z86.73 - Personal history of transient ischemic attack (TIA), and cerebral infarction without residual deficits TSH reflex Free T4 Today E78.5 - Hyperlipidemia, unspecified, K21.9 - Gastro-esophageal reflux disease without esophagitis, Z09 - Encounter for follow-up examination after completed treatment for conditions other than malignant neoplasm, Z78.9 - Other specified health status, Z86.73 - Personal history of transient ischemic attack (TIA), and cerebral infarction without residual deficits Vitamin D 25-OH Total Today E78.5 - Hyperlipidemia, unspecified, K21.9 - Gastro-esophageal reflux disease without esophagitis, R05.9 - Cough, unspecified, Z09 - Encounter for follow-up examination after completed treatment for conditions other than malignant neoplasm, Z78.9 - Other specified health status, Z86.73 - Personal history of transient ischemic attack (TIA), and cerebral infarction without residual deficits XR chest 2V Today K21.9 - Gastro-esophageal reflux disease without esophagitis, R05.9 - Cough, unspecified, Z09 - Encounter for follow-up examination after completed treatment for conditions other than malignant neoplasm, Z86.16 - Personal history of COVID-19 Lipid Panel Today E78.5 - Hyperlipidemia, unspecified, K21.9 - Gastro-esophageal reflux disease without esophagitis, Z09 - Encounter for follow-up examination after completed treatment for conditions other than malignant neoplasm, Z78.9 - Other specified health status, Z86.73 - Personal history of transient ischemic attack (TIA), and cerebral infarction without residual deficits Vitamin B12 and Folate Today E78.5 - Hyperlipidemia, unspecified, K21.9 - Gastro-esophageal reflux disease without esophagitis, Z09 - Encounter for follow-up examination after completed treatment for conditions other than malignant neoplasm, Z78.9 - Other specified health status, Z86.73 - Personal history of transient ischemic attack (TIA), and cerebral infarction without residual deficits Referrals Gastroenterology Referral K21.9 - Gastro-esophageal reflux disease without esophagitis Medications: New omeprazole 20 mg PO DAILY 30 tabs 0RF GERD Patient Instructions: Patient Instructions - Attend scheduled tests and follow up on appointments. - Maintain current medication regimen for hyperlipidemia; consult if symptoms worsen. - Avoid cold foods and drinks if they exacerbate symptoms. - patient to start omeprazole 20 mg daily and follow-up in 1 month to evaluate symptoms. - If symptoms persist GI referral placed. - Monitor any new symptoms and report to the office if they occur. - Plan to return for re-evaluation in May for annual Physical Exam with completed labs. Scribe Plan - Not visible on output: History of Present Illness The patient is a 73-year-old male presenting with persistent chest discomfort. He reports that since December, concurrent with a COVID-19 infection, he has experienced a sensation of something being continuously present in his chest which worsens with the consumption of cold beverages or foods. The discomfort provokes coughing, particularly with deep breaths. The symptom has been constant since onset and was initially treated with two courses of antibiotics; however, the discomfort persists. The patient denies any associated drooling, choking, or difficulty swallowing, minimizing the likelihood of esophageal or stroke-related complications. There is no reported chest pain per se, and the discomfort is primarily localized to the throat area. His medical history includes a previous stroke and hyperlipidemia. He discontinued hyperlipidemia injections due to insurance issues in December and is currently managed on oral medication. 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 Review of Systems - Respiratory: Reports persistent cough and sensation of restriction with deep breaths. Physical Exam Appearance: Alert. Oriented X3. No acute distress. Head: Normal external exam. Normocephalic. Atraumatic. Eyes: Pupils are equal, round, and reactive to light. Extraocular movements intact. Conjunctiva and sclera normal. Eyelids normal. Ears: External auditory canal normal. Tympanic membranes normal. Throat: Pharynx normal. Uvula midline. Moist mucous membranes. Neck: Normal inspection. Neck supple. Full range of motion. No adenopathy. Thyroid Normal. No meningeal signs. No neck mass noted. Cardiovascular: Normal heart rate and rhythm. Heart sound normal. No murmurs noted. Pulses normal throughout. Respiratory: Lungs sound a little full. No respiratory distress. Painless inspiration. Breath sounds normal. No wheezes/rales/rhonchi noted. Chest nontender. No accessory muscle usage noted or decreased air movement noted. Abdomen: Soft and nontender. Bowel sounds normal in all 4 quadrants. No distention noted. No organomegaly noted. No visible injury noted. Back: No costovertebral angle tenderness. Full range of motion noted. Skin: Skin warm and dry. Normal skin color. Normal skin turgor. No rashes/lesions/lacerations noted. Extremities: No lower extremity edema. Extremities exhibit normal range of motion. Extremities nontender. Neuro: Oriented X 3. No motor deficit. No sensory deficit. Reflexes normal. Results - Labs: Previous lipid panel from May before discontinuation of injections was normal. - Imaging: Previous colonoscopy in July 2023 was normal. Plan - Order chest x-rays to assess for any structural abnormalities. - patient will be started on omeprazole 20 mg daily and follow-up in 1 month to evaluate patient's symptoms. - If symptoms persist GI consult place, potentially with a scope examination. - Consider a swallow study if symptoms persist or indicated by gastroenterology. - Schedule follow-up for May for routine physical examination and repeat lipid panel. - Request blood work to include thyroid function, vitamin D, renal function, potassium, magnesium, and diabetes screening. Patient was informed and verbally consented to the use of an ambient scribe for clinic note documentation during this visit. Discussion Notes During our discussion, I explained the possibility of a hiatal hernia or other esophageal issue contributing to the patient's persistent cough and throat discomfort. We reviewed the importance of conducting more specific diagnostic tests to outline the exact cause. The reference to continuous monitoring of hyperlipidemia and the significance of following up with relevant specialists was emphasized. A referral to gastroenterology was recommended, and we discussed the types of evaluations that might be conducted, such as an endoscopic examination. I advised a thorough set of baseline blood tests before the scheduled appointment in May and ensured that he was informed regarding the continuation or adjustment of his lipid-lowering therapy depending on results. Any concerns or worsening of symptoms were advised to be followed up immediately. Patient Instructions - Attend scheduled tests and follow up on appointments. - Maintain current medication regimen for hyperlipidemia; consult if symptoms worsen. - Avoid cold foods and drinks if they exacerbate symptoms. - patient to start omeprazole 20 mg daily and follow-up in 1 month to evaluate symptoms. - If symptoms persist GI referral placed. - Monitor any new symptoms and report to the office if they occur. - Plan to return for re-evaluation in May for annual Physical Exam with completed labs.
[2024-03-01 12:49] VITALS: BP 130/78; PULSE 78; TEMP 36.2; O2SAT 98; BMI 27.8
--- OUTSIDE RECORDS SUMMARY | 2024-03-01 14:29 | XMS_ITS ---
Author Organization [facility] Address [address] [place] [id number] Care Team Providers Care Solution Consultant Name Role Phone Esvin Gomes DO Primary Care Provider Esvin Canales Unavailable [phone] ALLERGIES No Known Allergies REASON FOR VISIT Patient presents today for a recall colonoscopy MEDICATIONS Medication SIG (Take, Route, Frequency, Duration) Notes Start Date End Date Status Aspirin Active Vitamin D Active Pravastatin Sodium 40 MG Oral for 90 Active Repatha SureClick 140 MG/ML INJECT 140 MG SUBCUTANEOUSLY EVERY 2 WEEKS Subcutaneous for 84 Active VITAL SIGNS BMI 27.17 kg/m2 04/16/2023 Blood pressure systolic 00 mm Hg 04/16/19 24 Blood pressure diastolic 00 mm Hg 024 Height 69 in 04/16/2023 Temperature 97.7 degrees Fahrenheit 04/16/19 24 Weight 184 lbs 04/16/2023 Encounters Encounter Location Date Provider Diagnosis [facility] [address] [place] [id number] 04/16/2023 Esvin Gibbons History of adenomato us polyp of colon Z86.010 ; Pre-procedural examination Z01.818 and Encounter for screening for malignant neoplasm of colon Z12.11 ASSESSMENTS Encounter Date Diagnosis Assessment Notes Treatment Notes Treatment Clinical Notes 04/16/2023 History of adenomatous polyp of colon (ICD-10 - Z86.010) Do not take the aspirin on the day of the colonoscopy 04/16/2023 Pre-procedural examination (ICD-10 - Z01.818) 04/16/2023 Encounter for screening for malignant neoplasm of colon (ICD-10 - Z12.11) PLAN OF TREATMENT Treatment Notes Assessment Notes History of adenomatous polyp of colon Do not take the aspirin on the day of the colonoscopy Future Test Test Name Order Date COLONOSCOPY 04/16/2023 Next Appt Details Follow Up: prn, Reason: Progress Notes * Examination Category Sub-Category Detail Notes General Examination GENERAL APPEARANCE: pleasant , well nourished, well developed, in no acute distress EYES: sclera non-icteric NECK/THYROID: no cervical lymphade nopathy, neck supple HEART: S1, S2 normal LUNGS: clear to auscultatio n bilaterally ABDOMEN: normal bowel sounds, no guarding or rigidity, no hepatosplenomegaly, no masses palpable, soft, nontender, nondistended. NEUROLOGIC: alert and oriented SKIN: nonjaundiced, no spi ginny angiomata. EXTREMITIES: no edema ORAL CAVITY: mucosa moist
--- OUTSIDE RECORDS SUMMARY | 2024-03-01 14:29 | XMS_ITS ---
Author Organization [facility] Address [address] [place] [address] Care Team Providers Care Cokeman Name Role Phone Esvin Gomes DO Primary Care Provider Esvin Canales Unavailable [phone] REASON FOR VISIT screening,hx polyps PROBLEMS Problem Type ICD Code Onset Dates Problem Status W/U Status Risk SNOMED Code Notes Problem Diverticulosis of large intestine without perforation or abscess without bleeding (K57.30) Active confirmed Diverticul ar disease of colon ([id number]) Encounters Encounter Location Date Provider Diagnosis [facility] [address] [address], [place] [id number] 07/22/2023 Esvin Gibbons Encounter for scre ening colonoscopy Z12.11 ; Colon polyps K63.5 ; Diverticulosis of large intestine without perforation or abscess without bleeding K57.30 and Internal hemorrhoids K64.8 ASSESSMENTS Encounter Date Diagnosis Assessment Notes Treatment Notes Treatment Clinical Notes 07/22/2023 Encounter for screening colonoscopy (ICD-10 - Z12.11) 07/22/2023 Colon polyps (ICD-10 - K63.5) 07/22/2023 Diverticulosis of large intestine without perforation or abscess without bleeding (ICD-10 - K57.30) 07/22/2023 Internal hemorrhoids (ICD-10 - K64.8) PLAN OF TREATMENT No Information
--- OUTSIDE RECORDS SUMMARY | 2024-03-01 14:29 | XMS_ITS ---
Author Organization [facility] Address [address] [place] [address] Care Team Providers Care General House Worker Name Role Phone Esvin Gomes DO Primary Care Provider Unavail Esvin Scott Unavailable [phone] REASON FOR VISIT change date of colonoscopy Encounters Encounter Location Date Provider Diagnosis [facility] [address] [place] [address] 04/16/2023 Esvin Gibbons PLAN OF TREATMENT No Information
--- OUTSIDE RECORDS SUMMARY | 2024-03-01 14:30 | XMS_ITS | Patient Health Record ---
Author Organization Esvin Gomes DO, FAC Address [address], [place] [id number] Care Team Providers Care Licensed Reactor Operator Name Role Phone Mireya Esvin Primary Care Provider [phone] ALLERGIES No Known Allergies RESULTS Component Value Reference Range Notes Complete Blood Count Auto Di ff Reviewed date:06/03/2023 10:42:41 AM Interpretation:Normal Performing Lab:[facility], [address] [place] [phone] Notes/Report: White Blood Count 6.0 4.8-10.8 X10*3/uL Red Blood Count 5.10 4.60-5.80 X10*6/uL Hemoglobin 15.8 14.0-18.0 g/dl Hematocrit 46.6 42.0-52.0 % Mean Corpuscular Volume 91.4 80.0-98.0 fL Mean Corpuscular Hemoglobin 31.0 27.0-33.0 pg Mean Corpuscular HGB Conc 33.9 31.0-36.0 g/dl Red Cell Distribution Width 12.9 11.0-16.0 % Platelet Count 275 160-400 X10*3/uL Mean Platelet Volume 8.9 9.4-12.4 fL Neutrophils Percent Auto 57.9 45-73 % Imm Gran Pct Auto 0.2 0.0-0.4 % Lymphocytes Percent Auto 31.9 20-40 % Monocytes Percent Auto 8.0 2-11 % Eosinophils Percent Auto 1.7 0-4 % Basophils Percent Auto 0.3 0-2 % NRBC Pct Auto 0.0 0.0-0.2 /100WBC Neutrophils Absolute Auto 3.5 2.0-8.3 x10*3/u L Imm Gran Abs Auto 0.01 0.00-0.03 X10*3/uL Lymphocytes Absolute Auto 1.9 1.2-4.9 X10*3/u L Monocytes Absolute Auto 0.5 0.1-1.2 X10*3/uL Eosinophils Absolute Auto 0.1 0.0-0.4 X10*3/u L Basophils Absolute Auto 0.0 0.0-0.2 X10*3/uL NRBC Abs Auto 0.000 0.0-0.012 X10*3/uL Comprehensive [place]. Panel Fa st Reviewed date:06/03/2023 11:32:15 AM Interpretation:Abnormal Performing Lab:[facility], [address] [place] [phone] Notes/Report: Sodium 140 135-145 mmol/L Potassium 4.6 3.3-5.1 mmol/L Chloride 107 96-108 mmol/L Carbon Dioxide 27 22-29 mmol/L Anion Gap 11 12-20 Blood Urea Nitrogen 17 9-16 mg/dL Creatinine 1.00 0.5-1.4 mg/dL Estimated Glomerular Filt Rate > 60 NOTE: For -[place] individuals, multiply the result by 1.210. Chronic Kidney Disease: Estimated GFR < 60 mL/min/1.73m2 Severe Kidney Disease: Estimated GFR < 15 mL/min/1.73m2 Glucose Fasting 119 60-99 mg/dL A fasting glucose from 100-125 mg/dl is considered impaired (pre-diabetes). Calcium 9.3 8.4-10.2 mg/dL Bilirubin Total 1.2 0.0-1.0 mg/dL Aspartate Amino Transferase 25 5-37 U/L Alanine Aminotransferase 20 0-40 U/L Total Protein 6.9 6.5-8.0 g/dL Albumin Level 4.1 3.5-5.0 g/dL Alkaline Phosphatase 59 39-117 U/L Lipid Panel Reviewed date:06/03/2023 11:32:15 AM Interpretation:Normal Performing Lab:[facility], [address] [place] [phone] Notes/Report: Triglycerides 73 <150 mg/dL Desirable Triglyceride: less than 150 mg/dL Borderline High Triglyceride 150-199 mg/dL High Triglyceride: 200-499 mg/dL Very High Triglyceride: greater than or equal to 5OO mg/dL Cholesterol 91 <200 mg/dL Desirable Cholesterol: less than 200 mg/dL Borderline High Cholesterol: 200-239 mg/dL High Cholesterol: greater than 239 mg/dL LDL Cholesterol Calculated 27 <100 mg/dL Desirable LDL: less than 100 mg/dL Near Optimal/Above Optimal LDL: 110-129 mg/dL Borderline High LDL: 130-159 mg/dL High LDL: 160-189 mg/dL Very High LDL: greater than or equal to 190 mg/dL HDL Cholesterol 50 >40 mg/dL Desirable HDL: greater than 40 mg/dL Note: This HDL assay may give artificially low results in patients with liver disease. Vitamin D 25-OH Total Reviewed date:06/03/2023 11:32:15 AM Interpretation:Normal Performing Lab:[facility], [address] [place] [phone] Notes/Report: Vitamin D 25-OH Total 46.9 >30 ng/mL Health Based Reference Values* < 20 ng/mL Deficient 20-30 ng/mL Insufficient > 30 ng/mL Sufficient *Robert MELLO. N Engl J Med. 2007;357:266-280 Care must be taken in interpreting Vitamin D results from different laboratories and methodologies. Published data demonstrated that results from patients undergoing hemodialysis may show a negative bias when tested with various automated 25-OH vitamin D assays when compared to LC-MS/MS. When testing samples from patients whose predominant form of Vitamin D is Vitamin D2, such as patients receiving Vitamin D2 supplementation, results that are subtherapeutic should be confirmed with another method such as LC-MS/MS. Thyroid Stimulating Hormone Reviewed date:06/03/2023 11:32:15 AM Interpretation:Normal Performing Lab:[facility], [address] [place] [phone] Notes/Report: Thyroid Stimulating Hormone 0.92 0.32-4.0 uIU/ mL TSH 3rd Generation ([facility]) Pathology Reviewed date:07/23/2023 05:08:42 PM Interpretation:Tubular adenoma Performing Lab:[facility], [address] [place] [phone] Notes/Report: Complete Blood Count Auto Di ff Reviewed date:01/01/2024 04:06:14 PM Interpretation:Abnormal Performing Lab:[facility], [address] [place] [phone] Notes/Report: White Blood Count 11.7 4.8-10.8 X10*3/uL Red Blood Count 5.54 4.60-5.80 X10*6/uL Hemoglobin 17.6 14.0-18.0 g/dl Hematocrit 49.8 42.0-52.0 % Mean Corpuscular Volume 89.9 80.0-98.0 fL Mean Corpuscular Hemoglobin 31.8 27.0-33.0 pg Mean Corpuscular HGB Conc 35.3 31.0-36.0 g/dl Red Cell Distribution Width 12.9 11.0-16.0 % Platelet Count 223 160-400 X10*3/uL Mean Platelet Volume 8.5 9.4-12.4 fL Neutrophils Percent Auto 83.2 45-73 % Imm Gran Pct Auto 0.4 0.0-0.4 % Lymphocytes Percent Auto 7.1 20-40 % Monocytes Percent Auto 8.6 2-11 % Eosinophils Percent Auto 0.3 0-4 % Basophils Percent Auto 0.4 0-2 % NRBC Pct Auto 0.0 0.0-0.2 /100WBC Neutrophils Absolute Auto 9.8 2.0-8.3 x10*3/u L Imm Gran Abs Auto 0.05 0.00-0.03 X10*3/uL Lymphocytes Absolute Auto 0.8 1.2-4.9 X10*3/u L Monocytes Absolute Auto 1.0 0.1-1.2 X10*3/uL Eosinophils Absolute Auto 0.0 0.0-0.4 X10*3/u L Basophils Absolute Auto 0.1 0.0-0.2 X10*3/uL NRBC Abs Auto 0.000 0.0-0.012 X10*3/uL Prothrombin Time INR Reviewed date:01/01/2024 04:04:52 PM Interpretation:Abnormal Performing Lab:[facility], [address] [place] [phone] Notes/Report: Prothrombin Time 13.0 10.9-12.4 SEC INTERNATIONAL NORM RATIO 1.1 0.9-1.1 INTERNATIONAL NORMALIZED RATIO (INR) REFERENCE RANGES Reference Range For patients not on anticoagulant therapy: 0.9 - 1.1 INR ranges for oral anticoagulant therapy: For prevention and treatment of venous thrombosis and pulmonary embolism: 2.0 - 3.0 For acute myocardial infarction with aspirin therapy: 2.0 - 3.0 For acute myocardial infarction without aspirin therapy: 3.0 - 4.0 For patients with mechanical prosthetic heart valves: 2.5 - 3.5 Comprehensive Met. Panel Reviewed date:01/01/2024 04:12:58 PM Interpretation:Abnormal Performing Lab:[facility], [address] [place] [phone] Notes/Report: Sodium 140 135-145 mmol/L Potassium 4.5 3.3-5.1 mmol/L Chloride 105 96-108 mmol/L Carbon Dioxide 24 22-29 mmol/L Anion Gap 16 12-20 Blood Urea Nitrogen 12 9-16 mg/dL Creatinine 1.26 0.5-1.4 mg/dL Creatinine Clr Calc Pharmacy 51.2 eGFR (calculated from the MDRD study equation) and eCrCl (calculated from the Cockcroft-Gault equation) are based on different parameters and may not yield comparable results. If eCrCl result is absurd, please check patient's height/weight. Estimated Glomerular Filt Rate 56 Chronic Kidney Disease: Estimated GFR < 60 mL/min/1.73m2 Severe Kidney Disease: Estimated GFR < 15 mL/min/1.73m2 Glucose Random 122 60-115 mg/dL Calcium 10.4 8.4-10.2 mg/dL Bilirubin Total 0.9 0.0-1.0 mg/dL Aspartate Amino Transferase 40 5-37 U/L Alanine Aminotransferase 37 0-40 U/L Total Protein 7.7 6.5-8.0 g/dL Albumin Level 4.6 3.5-5.0 g/dL Alkaline Phosphatase 65 39-117 U/L Lipase Reviewed date:01/01/2024 04:12:26 PM Interpretation:Normal Performing Lab:[facility], [address] [place] [phone] Notes/Report: Lipase 19 8-78 U/L SARS-CoV2/FLU/RSV Reviewed date:01/01/2024 04:05:41 PM Interpretation:Positive Performing Lab:[facility] [address] [place] [phone] Notes/Report: Influenza A PCR NEGATIVE Negative Influenza B PCR NEGATIVE Negative Resp Syncy Virus RNA Qual PCR NEGATIVE Negative SARS COV2 PCR INHOUSE POSITIVE Negative All test results must be correlated with clinical findings. Negative results do not preclude SARS-CoV2, influenza A virus, influenza B virus and/or RSV infection and should not be used as the sole basis for treatment or other patient management decisions. Negative results must be combined with clinical observations, patient history, and epidemiological information. This test has not been evaluated for monitoring treatment of infection. This test has been authorized by the FDA under an Emergency Use Authorization (EUA) for use by authorized laboratories. Testing performed on the [employer] GeneXpert utilizing real-time RT-PCR. All SARS CoV2 and positive influenza A/B results are reported to [facility]. XR chest 2V Reviewed date:01/01/2024 04:45:11 PM Interpretation:Nonacute Performing Lab: Notes/Report: [address] [address] XRay Report Signed Patient: Rm Guzman MR#: [id number] : 1950 Acct:[id number] Age/Sex: 73 / M ADM Date: 01/01/24 Loc: .ED Attending Dr: Ordering Physician: Vane Sanabria CNP Date of Service: 01/01/24 Procedure(s): XR chest 2V Accession Number(s): [id number] cc: Vane Sanabria CNP; Esvin Gomes DO EXAMINATION: XR CHEST CLINICAL INFORMATION: Shortness of breath and cough. COMPARISON: Chest radiograph dated June 08, 2015. TECHNIQUE: 2 views of the chest were obtained. FINDINGS: The heart is normal in size. There is a lead left cardiac device along the left heart border. The lungs are clear. No pleural effusion. No pneumothorax. No acute osseous abnormality. There is a surgical clip overlying the left upper quadrant. XR/XR chest 2V IMPRESSION: No acute cardiopulmonary disease. Electronically signed by: Jarocho Tovar DO 01/01/2024 04:32 PM [facility] Dictated By: Jarocho Tovar Jr, DO Signed By: <Electronically signed by Jarocho Tovar Jr, DO in OV> 01/01/24 1632 DD/ 1503 TD/TT: 01/01/24 1545 Shaping Machine Operator: SEBAS REASON FOR REFERRAL No Information MEDICATIONS Medication SIG (Take, Route, Frequency, Duration) Notes Start Date End Date Status Repatha 140 MG/ML 1 mL Subcutaneous On ce every 2 weeks Active Pravastatin Sodium 20 MG 1 tablet Orally Once a day for 90 days Active Aspirin Adult Low Dose 81 MG 1 tablet Orally Once a day A ctive Vitamin D (Cholecalciferol) 50 MCG (1999 UT) 1 capsule Orally Once a day 02/06/2021 Active Azithromycin 250 MG 2 tablets on the , then 1 tablet daily for 4 days Orally Once a day for 5 day(s) 02/07/2024 Active Paxlovid (300/100) 20 x 150 MG & 10 x 100MG 3 tablets Orally Twice a day for 5 days 01/01/2024 Active Amoxicillin-Pot Clavulanate 875-125 MG 1 tablet with food Orally Twice a day for 7 days 02/13/2024 Active IMMUNIZATIONS Vaccine Route Administration Date Status Comme nts TDaP IM Intramuscular 06/04/2015 Administered Influenza IM Intramuscular 12/14/2015 Administered Influenza IM Intramuscular 12/17/2016 Administered Influenza High Dose IM Intramuscular 12/04/2017 Administer ed PCV 13 IM Intramuscular 11/05/2018 Administered Influenza High Dose IM Intramuscular 11/05/2018 Administer ed COVID-19 Pfizer BioNTech Unknown 11/23/2020 Administere d COVID-19 Pfizer BioNTech Unknown 04/18/2020 Administere d COVID-19 Pfizer BioNTech Unknown 05/09/2020 Administere d flu vaccine Unknown 12/14/2015 Administered Influnza High Dose Quad Unknown 11/09/2020 Administered Shingrix Unknown 12/21/2020 Administered Influnza High Dose Quad Unknown 11/04/2019 Administered Shingrix Unknown 04/03/2021 Administered COVID-19 Pfizer BioNTech Unknown 11/23/2020 Administere d COVID-19 Pfizer BioNTech Unknown 05/31/2021 Administere d Zoster Vaccine Unknown 09/12/2015 Administered Pneumococcal - PPSV23 Unknown 11/11/2019 Administered Influnza High Dose Quad Unknown 11/11/2021 Administered COVID-19 Pfizer Bivalent Unknown 11/22/2021 Administere d Influnza High Dose Quad Unknown 10/22/2022 Administered SOCIAL HISTORY Tobacco Use: Social History Observation Description Date Details (start date - stop date) Former Smoker NA - NA Sex Assigned At : Social History Observation Description Sex Assigned At Unknown Tobacco Use/Smoking Question Answer Notes Patient is a former smoker How long has it been since y ou last smoked? > 10 years Additional Findings: Tobacco Non-User Fo rmer smoker, currently using no form of tobacco Alcohol Screen Question Answer Notes Did you have a drink contain ing alcohol in the past year? Yes How often did you have a dri nk containing alcohol in the past year? 2 to 4 times a month (2 points) How many drinks did you have on a typical day when you were drinking in the past year? 1 or 2 drinks (0 point) How often did you have 6 or more drinks on one occasion in the past year? Never (0 point) Points 2 Interpretation Negative PROBLEMS Problem Type ICD Code Onset Dates Problem Status W/U Status Risk SNOMED Code Notes Problem Vitamin D deficiency (E55.9) Active confirmed 91212783 Problem Hypercholesterolemia (E78.00) Active confirmed 22997089 Problem Cerebellar cerebrovascular accident (CVA) without late effect (Z86.73) Active confirmed 863580776086655 00 VITAL SIGNS Blood pressure diastolic 64 mm Hg 06/09/2023 Height 68 in 06/09/2023 Blood pressure systolic 112 mm Hg 06/09/2023 Weight 185 lbs 06/09/2023 BMI 28.13 kg/m2 06/09/2023 Encounters Encounter Location Date Provider Diagnosis Esvin Gomes DO, [facility] [address], [place] [id number] 06/09/2023 Esvin Gomes Encounter for genera l adult medical examination without abnormal findings Z00.00 ; Cerebellar cerebrovascular accident (CVA) without late effect Z86.73 ; Hypercholesterolemia E78.00 and Vitamin D deficiency E55.9 Esvin Gomes DO, [facility] [address], [place] [id number] 01/01/2024 Esvin Gomes DO, [facility] [address], [place] [id number] 05/28/2023 Esvin Gomes Encounter for genera l adult medical examination without abnormal findings Z00.00 ; Hypercholesterolemia E78.00 ; Vitamin D deficiency E55.9 and Cerebellar cerebrovascular accident (CVA) without late effect Z86.73 Esvin Gomes DO, [facility] [address], [place] [id number] 05/28/2023 Esvin Gomes DO, [facility] [address], [place] [id number] 08/16/2023 Esvin Gomes Hypercholesterolemia E78.00 Esvin Gomes DO, [facility] [address], [place] [id number] 11/13/2023 Esvin Gomes Hypercholesterolemia E78.00 Esvin Gomes DO, [facility] [address], [place] [id number] 01/25/2024 Esvin Gomes DO, [address] [id number] 02/07/2024 Esvin Gomes DO, [address] [id number] 02/13/2024 Esvin Gomes DO, [address] [id number] 02/14/2024 Esvin Gomes DO, [address] [id number] 02/24/2024 Esvin Gomes DO, [address] [id number] 02/24/2024 Esvin Gomes DO, [address] [id number] 02/24/2024 Esvin Gomes ASSESSMENTS Encounter Date Diagnosis Assessment Notes Treatment Notes Treatment Clinical Notes 06/09/2023 Encounter for genera l adult medical examination without abnormal findings (ICD-10 - Z00.00) Needs to lose 10 pounds through diet and exercise. Limit complex carbohydrates and simple sugars. 06/09/2023 Cerebellar cerebrovascular accident (CVA) without late effect (ICD-10 - Z86.73) 05/28/2023 Encounter for genera l adult medical examination without abnormal findings (ICD-10 - Z00.00) 05/28/2023 Hypercholesterolemia (ICD-10 - E78.00) 08/16/2023 Hypercholesterolemia (ICD-10 - E78.00) 11/13/2023 Hypercholesterolemia (ICD-10 - E78.00) 06/09/2023 Hypercholesterolemia (ICD-10 - E78.00) 05/28/2023 Vitamin D deficiency (ICD-10 - E55.9) 06/09/2023 Vitamin D deficiency (ICD-10 - E55.9) 05/28/2023 Cerebellar cerebrovascular accident (CVA) without late effect (ICD-10 - Z86.73) PLAN OF TREATMENT No Information Insurance Providers Payer Name Payer Address Payer Phone Subscriber Number Group Number Insured Name Patient Relationship to Insured Coverage Start Date Coverage End Date [employer] [address] [place], [place] [id number] Rm Santacruz Self - patient is the insured MEDICARE [address] [place] [phone] [id number] Rm Santacruz Self - patient is the insured MEDICAL (GENERAL) HISTORY Medical History History ICD Code hypercholesterolemia gastroesophageal reflux disease (GERD) mitral valve prolapse atypical chest pain microscopic hematuria (work up negative) Strain of neck muscle, initial encounter S16.1XXA Cerebellar cerebrovascular accident (CVA ) without late effect Z86.73 Surgical History Surgery Date(Month/Year) cyst removal
--- OUTSIDE RECORDS SUMMARY | 2024-03-01 14:30 | XMS_ITS ---
Author Organization [facility] DO [facility] Address [address] [place], [place] [phone] Care Team Providers Care Heddler Name Role Phone Esvin Gomes Primary Care Provider REASON FOR VISIT appointment Encounters Encounter Location Date Provider Diagnosis Esvin Gomes DO [address] [id number] 02/24/2024 Esvin Gomes PLAN OF TREATMENT No Information
--- OUTSIDE RECORDS SUMMARY | 2024-03-01 14:30 | XMS_ITS ---
Author Organization Esvin Gomes DO [facility] Address [address] [place], [place] [phone] Care Team Providers Care Pollution Control Engineer Name Role Phone Esvin Gomes Primary Care Provider [phone] MEJIA Encounters Encounter Location Date Provider Diagnosis Esvin Gomes DO, FACP [address] [place] [phone] 02/24/2024 Esvin Gomes PLAN OF TREATMENT No Information
--- OUTSIDE RECORDS SUMMARY | 2024-03-01 14:30 | XMS_ITS ---
Author Organization Esvin Gomes DO, FACP Address [address] [place], [place] [phone] Care Team Providers Care Hoe Runner Name Role Phone Esvin Gomes Primary Care Provider REASON FOR VISIT RE:DR. MEJIA Encounters Encounter Location Date Provider Diagnosis Esvin Gomes DO [address] [id number] 02/24/2024 Esvin Gomes PLAN OF TREATMENT No Information
--- OUTSIDE RECORDS SUMMARY | 2024-03-01 14:30 | XMS_ITS | Patient Health Record ---
Author Organization [facility] Address [address] [place] [phone] Care Team Providers Care Career Development Specialist Name Role Phone Esvin Gomes DO Primary Care Provider Unavail able Esvin Gibbons Unavailable [phone] ALLERGIES No Known Allergies RESULTS Component Value Reference Range Notes Pathology (Not yet reviewed by provider) Interpretation: Performing Lab:[facility], [address] [place] [phone] Notes/Report: REASON FOR REFERRAL No Information MEDICATIONS Medication SIG (Take, Route, Frequency, Duration) Notes Start Date End Date Status Aspirin Active Vitamin D Active Pravastatin Sodium 40 MG Oral for 90 Active Repatha SureClick 140 MG/ML INJECT 140 MG SUBCUTANEOUSLY EVERY 2 WEEKS Subcutaneous for 84 Active SOCIAL HISTORY Sex Assigned At : Social History Observation Description Sex Assigned At Unknown PROBLEMS Problem Type ICD Code Onset Dates Problem Status W/U Status Risk SNOMED Code Notes Problem Encounter for screening for malignant neoplasm of colon (Z12.11) Active confirmed 754400017 Problem History of adenomatous polyp of colon (Z86.010) Active confirmed 291763380 Problem Diverticulosis of large intestine without perforation or abscess without bleeding (K57.30) Active confirmed Diverticul ar disease of colon (107277247) Problem Pre-procedural examination (Z01.818) Active confirmed [id number] VITAL SIGNS Temperature 97.7 degrees Fahrenheit 04/16/2023 Blood pressure diastolic 00 mm Hg 04/16/2023 Height 69 in 04/16/2023 Blood pressure systolic 00 mm Hg 04/16/2023 Weight 184 lbs 04/16/2023 BMI 27.17 kg/m2 04/16/2023 Encounters Encounter Location Date Provider Diagnosis [facility] Outpatient [address], [place] [phone] 07/22/2023 Esvin Gibbons Encounter for screen ing colonoscopy Z12.11 ; Colon polyps K63.5 ; Diverticulosis of large intestine without perforation or abscess without bleeding K57.30 and Internal hemorrhoids K64.8 [facility] [address] [place] [phone] 04/16/2023 Esvin Gibbons History of adenomato us polyp of colon Z86.010 ; Pre-procedural examination Z01.818 and Encounter for screening for malignant neoplasm of colon Z12.11 [facility] [address] [place] [phone] 04/16/2023 Esvin Gibbons ASSESSMENTS Encounter Date Diagnosis Assessment Notes Treatment Notes Treatment Clinical Notes 07/22/2023 Encounter for screening colonoscopy (ICD-10 - Z12.11) 07/22/2023 Colon polyps (ICD-10 - K63.5) 04/16/2023 History of adenomatous polyp of colon (ICD-10 - Z86.010) Do not take the aspirin on the day of the colonoscopy 04/16/2023 Pre-procedural examination (ICD-10 - Z01.818) 07/22/2023 Diverticulosis of large intestine without perforation or abscess without bleeding (ICD-10 - K57.30) 04/16/2023 Encounter for screening for malignant neoplasm of colon (ICD-10 - Z12.11) 07/22/2023 Internal hemorrhoids (ICD-10 - K64.8) PLAN OF TREATMENT Pending Test Test Name Order Date Pathology 07/22/2023 Future Test Test Name Order Date COLONOSCOPY 11/24/2012 COLONOSCOPY 07/28/2017 COLONOSCOPY 04/16/2023 Insurance Providers Payer Name Payer Address Payer Phone Subscriber Number Group Number Insured Name Patient Relationship to Insured Coverage Start Date Coverage End Date [facility] [address] [place], [place] [id number] RILEY ALEX Self - patient is the insured MEDICAL (GENERAL) HISTORY Medical History History ICD Code Hyperlipidemia Denies [place],DM,Lung disease,renal disease Colonoscopies in 2007, 01/05 13, 12/2017 with small tubular adenomas removed, diverticulosis, and intermnal hemorrhoids Stroke 05/2021 due to a clot and treated with a thrombolytic- Loop recorder-Dr. Madison--negative as of the 03/2023 OV Surgical History Surgery Date(Month/Year)
== END 2024-03-01 13:07 | disposition home or self-care (01) ==
LOC: HO.HMCSH 12:23
PROVIDERS: PCP Internal Medicine; Visit Provider Physician Assistant Medical
DX: Z09 Encounter for follow-up examination after completed treatment for conditions other than malignant neoplasm (principal); K21.9 Gastro-esophageal reflux disease without esophagitis

== ENCOUNTER → 2024-03-01 12:23 | Outpatient (BNVA) | payer MEDICARE, SELFPAY | PROVIDERS: PCP Internal Medicine; Visit Provider Physician Assistant Medical | DX: R07.9 Chest pain, unspecified (principal); K21.9 Gastro-esophageal reflux disease without esophagitis; E78.5 Hyperlipidemia, unspecified; Z09 Encounter for follow-up examination after completed treatment for conditions other than malignant neoplasm; Z86.73 Personal history of transient ischemic attack (TIA), and cerebral infarction without residual deficits; Z78.9 Other specified health status | CPT/HCPCS: 99202 ==

== ENCOUNTER 2024-04-05 09:27 | Outpatient (AMB) | payer MEDICARE, SELFPAY ==
--- NOTE | 2024-04-05 09:31 | MHC.PC.OV ---
Vital Signs 04/05/24 09:38 Height 5 ft 8.25 in Weight 187 lb BMI 28.2 BP 150/74 H Blood Pressure Location Rt brachial Pulse 82 Pulse Source Pulse Oximeter Temp 97.3 F Pulse Oximetry (%) 95 Intake Visit Reasons: one month follow up GERD Intake Note: no other issues Allergies Ouukjcl-VRC-YfM Reductase Inhibitor Adverse Reaction (Unknown, Verified 04/05/24 10:23) Unknown Medication List - Last Reconciled 04/05/24 by Belinda Can PA-C aspirin 81 mg PO DAILY cholecalciferol (vitamin D3) (Vitamin D3) 25 mcg PO DAILY fexofenadine-pseudoephedrine 180-240 mg ER (Ana Maria-D 24 Hour) 1 tab PO QAM fluticasone propionate 50 mcg/actuation (Flonase Allergy Relief) 2 sprays intranasal DAILY pantoprazole 40 mg PO BEDTIME pravastatin 40 mg PO DAILY 90 days [facility] Medical History (Updated 04/05/24 @ 10:26 by Belinda Can PA-C) Elevated BP without diagnosis of hypertension Post-nasal drip CVA (cerebral vascular accident) High cholesterol Surgical History H/O colonoscopy (~07/22/23) No pertinent past surgical history Family History Father No problems noted. Mother No problems noted. Social History Household Members: Spouse Housing: House Do you presently have visiting nurse or other home services: No Alcohol intake: current Alcohol intake frequency: does not drink Alcohol type: beer Patient Tobacco Use Status: Never used Tobacco Second Hand Smoke Exposure: No service: No Current occupational status: retired Physical exam (Primary Care) Vital Signs: Last Vital Signs Temp 97.3 F 04/05/24 09:38 Pulse 82 04/05/24 09:38 BP 150/74 H 04/05/24 09:38 Pulse Ox 95 04/05/24 09:38 Care Plan Goal for BP management: 130/80 BMI result Body Mass Index 28.2 BMI Assessment/Plan discussion: High BMI High, discussed plan: lifestyle, weight reduction, dietary, physical activity and alcohol moderation Tobacco/Smoking Status: Tobacco use Status Patient Tobacco Use Status Never used Tobacco 04/05/24 09:37 Coding Level of Care Code Est Pt Level 4 (19280) Complex EM visit Add On G2211 Diagnoses GERD (gastroesophageal reflux disease) K21.9 Hyperlipidemia, unspecified E78.5 Cerebrovascular accident I63.9 Post-nasal drip R09.82 Elevated BP without diagnosis of hypertension R03.0 Assessment & Plan Assessment & Plan (1) GERD (gastroesophageal reflux disease): Code(s): K21.9 - Gastro-esophageal reflux disease without esophagitis Category: Medical Plan: Will discontinue omeprazole and start pantoprazole 40 mg at bedtime. Condition is chronic and stable continue to monitor. (2) Hyperlipidemia, unspecified: Code(s): E78.5 - Hyperlipidemia, unspecified Category: Medical Plan: Patient to continue pravastatin 40 mg daily. Condition is chronic and stable continue to monitor. (3) Cerebrovascular accident: Code(s): I63.9 - Cerebral infarction, unspecified Category: Medical Plan: Patient to continue baby aspirin 81 mg daily. Condition is chronic and stable continue to monitor. (4) Post-nasal drip: Code(s): R09.82 - Postnasal drip Category: Medical Plan: Will prescribe Flonase Allergy relief 2 sprays daily or twice daily. Condition is chronic and stable continue to monitor. (5) Elevated BP without diagnosis of hypertension: Code(s): R03.0 - Elevated blood-pressure reading, without diagnosis of hypertension Category: Medical Plan: Blood pressure noted to be elevated in office today. Patient not on blood pressure medication. Patient to monitor his blood pressure at home and keep a diary and bring it to his next visit. Condition is stable continue to monitor. Plan Plan - Initiate treatment with pantoprazole 40 mg once daily at bedtime. - Start Ana Maria D for symptomatic relief of suspected allergic rhinitis, once daily in the morning. - Add Flonase nasal spray, twice daily, once in the morning and once at night. - Continue follow-up with Gastroenterology for pending endoscopic evaluation. - Monitor symptoms and consider imaging if symptoms persist or worsen before the GI appointment. Medications: New fexofenadine-pseudoephedrine 180-240 mg ER (Ana Maria-D 24 Hour) 1 tab PO QAM 90 tabs 3RF fluticasone propionate 50 mcg/actuation (Flonase Allergy Relief) administer into each nostril 2 sprays intranasal DAILY 16 grams 1RF pantoprazole 40 mg PO BEDTIME 90 tabs 1RF Discontinued omeprazole Discontinued Reason: Duplicate 20 mg PO DAILY 90 tabs 1RF Patient Instructions: Patient Instructions - Start taking pantoprazole 40 mg at bedtime. - Take Ana Maria D in the morning, once daily. - Use Flonase nasal spray twice daily, in the morning and at night. - Monitor symptoms and contact my office if conditions worsen before the GI appointment. - Follow up with the scheduled Gastroenterology appointment for further evaluation. - Report any new symptoms or adverse effects from medications. - Continue to note any improvement or changes in symptoms. Scribe Plan - Not visible on output: History of Present Illness The patient is a 73-year-old male presenting with persistent symptoms related to gastroesophageal reflux disease (GERD). Initially, symptoms began more than one month ago, persisting despite intervention. The patient reports a continuation of throat clearing and a sensation of something in the throat, although the heaviness in the chest has improved slightly with omeprazole. Other symptoms include frequent congestion and postnasal drip, leading to speculation about potential allergies. The patient denies nausea, stomach upset, and voice changes but experiences occasional restriction when drinking certain beverages. Previous diagnostic efforts include omeprazole with limited effect and a pending GI appointment for further evaluation. Current interventions include allergy medications such as Claritin D, Flonase, and Ana Maria, with a switch from omeprazole to pantoprazole considered. Social History - No specific social determinants of health discussed during the conversation. Review of Systems - Gastrointestinal: Denies nausea, stomach upset. - Otolaryngological: Reports chronic throat clearing, sensation in the throat. - Neurological: Denies dizziness. Physical Exam Appearance: Alert. Oriented X3. No acute distress. Head: Normal external exam. Normocephalic. Atraumatic. Eyes: Pupils are equal, round, and reactive to light. Extraocular movements intact. Conjunctiva and sclera normal. Eyelids normal. Ears: External auditory canal normal. Tympanic membranes normal. Throat: Pharynx normal. Uvula midline. Moist mucous membranes. Neck: Normal inspection. Neck supple. Full range of motion. No adenopathy. Thyroid Normal. No meningeal signs. No neck mass noted. Cardiovascular: Normal heart rate and rhythm. Heart sound normal. No murmurs noted. Pulses normal throughout. Respiratory: No respiratory distress. Painless inspiration. Breath sounds normal. No wheezes/rales/rhonchi noted. Chest nontender. No accessory muscle usage noted or decreased air movement noted. Back: Full range of motion noted. Skin: Skin warm and dry. Normal skin color. Normal skin turgor. No rashes/lesions/lacerations noted. Extremities: Extremities exhibit normal range of motion. Extremities nontender. Neuro: Oriented X 3. No motor deficit. No sensory deficit. Reflexes normal. Results - Imaging: Chest X-ray conducted previously for COVID purposes, results showed no abnormalities. Plan - Initiate treatment with pantoprazole 40 mg once daily at bedtime. - Start Ana Maria D for symptomatic relief of suspected allergic rhinitis, once daily in the morning. - Add Flonase nasal spray, twice daily, once in the morning and once at night. - Continue follow-up with Gastroenterology for pending endoscopic evaluation. - Monitor symptoms and consider imaging if symptoms persist or worsen before the GI appointment. Patient was informed and verbally consented to the use of an ambient scribe for clinic note documentation during this visit. Discussion Notes We discussed the potential link between the patient's persistent throat-related symptoms and underlying GERD, alongside suspected allergic rhinitis as contributing factors. I recommended starting Ana Maria D and Flonase to address allergic symptoms and switching from omeprazole to pantoprazole for improved GERD management. The patient will follow up with Gastroenterology for a thorough endoscopic evaluation to rule out other causes and monitor the effectiveness of current treatment. The safety and reversibility of the medications were highlighted, with reassurance that discontinuation is possible without tapering if symptoms resolve or if side effects occur. Patient Instructions - Start taking pantoprazole 40 mg at bedtime. - Take Ana Maria D in the morning, once daily. - Use Flonase nasal spray twice daily, in the morning and at night. - Monitor symptoms and contact my office if conditions worsen before the GI appointment. - Follow up with the scheduled Gastroenterology appointment for further evaluation. - Report any new symptoms or adverse effects from medications. - Continue to note any improvement or changes in symptoms.
[2024-04-05 09:38] VITALS: BP 150/74; PULSE 82; TEMP 36.3; O2SAT 95; BMI 28.2
--- OUTSIDE RECORDS SUMMARY | 2024-04-05 10:12 | XMS_ITS ---
Author Organization [facility] Address [address] [place] [address] Care Team Providers Care Drum Straightener Name Role Phone NE MEJIA Primary Care Provider Esvin Braun Unavailable [phone] REASON FOR VISIT screening,hx polyps PROBLEMS Problem Type ICD Code Onset Dates Problem Status W/U Status Risk SNOMED Code Notes Problem Diverticulosis of large intestine without perforation or abscess without bleeding (K57.30) Active confirmed Diverticul ar disease of colon (385513436) Encounters Encounter Location Date Provider Diagnosis [facility] Outpatient [address] [place], [place] [phone] 07/22/2023 Esvin Gibbons Encounter for scre ening [...] hemorrhoids (ICD-10 - K64.8) PLAN OF TREATMENT Next Appt Details Provider Name:Esvin Gibbons , 07/15/2024 01:40:00 PM, [address], [address], [place], [address],
--- OUTSIDE RECORDS SUMMARY | 2024-04-05 10:12 | XMS_ITS ---
Author Organization [facility] Address [address] [place] [address] Care Team Providers Care Supervisor Product Inspection Name Role Phone NE MEJIA Primary Care Provider Esvin Braun Unavailable [phone] REASON FOR VISIT change date of colonoscopy Encounters Encounter Location Date Provider Diagnosis [facility] [address] [place] [address] 04/16/2023 Esvin Gibbons PLAN OF TREATMENT Next Appt Details Provider Name:Esvin Gibbons , 07/15/2024 01:40:00 PM, [address] [facility], [address], [place], [address],
--- OUTSIDE RECORDS SUMMARY | 2024-04-05 10:13 | XMS_ITS | Patient Health Record ---
Author Organization [facility] Address [address] [place] [address] Care Team Providers Care Heater Room Helper Name Role Phone NE MEJIA Primary Care Provider Esvin Braun [phone] ALLERGIES No Known Allergies RESULTS Component Value Reference Range Notes Pathology (Not yet reviewed by provider) Interpretation: Performing Lab:[facility], [address] [place] [id number] Notes/Report: REASON FOR REFERRAL No Information MEDICATIONS [...] malignant neoplasm of colon (Z12.11) Active confirmed 498896249 Problem History of adenomatous polyp of colon (Z86.010) Active confirmed 435587178 Problem Diverticulosis of large intestine without perforation or abscess without bleeding (K57.30) Active confirmed Diverticul ar disease of colon (176482302) Problem Pre-procedural examination (Z01.818) Active confirmed [id number] VITAL SIGNS Temperature 97.7 degrees Fahrenheit 04/16/2023 Blood pressure diastolic 00 mm Hg 04/16/2023 Height 69 in 04/16/2023 Blood pressure systolic 00 mm Hg 04/16/2023 Weight 184 lbs 04/16/2023 BMI 27.17 kg/m2 04/16/2023 Encounters Encounter Location Date Provider Diagnosis [facility] [address] [place], [place] [phone] 07/22/2023 Esvin Gibbons Encounter for screen ing colonoscopy Z12.11 ; Colon polyps K63.5 ; Diverticulosis of large intestine without perforation or abscess without bleeding K57.30 and Internal hemorrhoids K64.8 [facility] [address] [place] [address] [address] [place] [address] 04/16/2023 Esvin Gibbons History of adenomato us polyp of colon Z86.010 ; Pre-procedural examination Z01.818 and Encounter for screening for malignant neoplasm of colon Z12.11 [facility] [address] [place] [address] 04/16/2023 Esvin Gibbons ASSESSMENTS Encounter Date Diagnosis [...] Date COLONOSCOPY 11/24/2012 COLONOSCOPY 07/28/2017 COLONOSCOPY 04/16/2023 Next Appt Details Provider Name:Esvin Gibbons , 07/15/2024 01:40:00 PM, [address] [place] [address], [address], [place], [address], Insurance Providers Payer Name Payer Address Payer Phone Subscriber Number Group Number Insured Name Patient Relationship to Insured Coverage Start Date Coverage End Date [facility] [address] [place], [place] [id number] RILEY ALEX Self - patient is the insured MEDICAL (GENERAL) HISTORY Medical History History ICD Code Hyperlipidemia Denies NV,DM,Lung disease,renal disease Colonoscopies in 2007, 01/05 13, 12/2017 with small tubular adenomas removed, diverticulosis, and intermnal hemorrhoids Stroke 05/2021 due to a clot and treated with a thrombolytic- Loop recorder-Dr. Madison--negative as of the 03/2023 OV Surgical History Surgery Date(Month/Year)
--- OUTSIDE RECORDS SUMMARY | 2024-04-05 10:13 | XMS_ITS ---
Author Organization Esvin Gomes DO, FACP Address [address] [place], [place] [id number] Care Team Providers Care Gardener Florist Name Role Phone Esvin Gomes Primary Care Provider REASON FOR VISIT RE:DR. MEJIA Encounters Encounter Location Date Provider Diagnosis Esvin Gomes DO [address] [phone] 02/24/2024 Esvin Gomes PLAN OF TREATMENT No Information
--- OUTSIDE RECORDS SUMMARY | 2024-04-05 10:13 | XMS_ITS ---
Author Organization Esvin Gomes DO [facility] Address [address] [place], [place] [id number] Care Team Providers Care Cracker Sprayer Name Role Phone Esvin Gomes Primary Care Provider [phone] MEJIA Encounters Encounter Location Date Provider Diagnosis Esvin Gomes DO, FACP [address] [place] [phone] 02/24/2024 Esvin Gomes PLAN OF TREATMENT No Information
== END 2024-04-05 09:59 | disposition home or self-care (01) ==
LOC: HO.HMCSH 09:27
PROVIDERS: PCP Internal Medicine; Visit Provider Physician Assistant Medical
DX: K21.9 Gastro-esophageal reflux disease without esophagitis (principal); E78.5 Hyperlipidemia, unspecified; I63.9 Cerebral infarction, unspecified; R09.82 Postnasal drip; R03.0 Elevated blood-pressure reading, without diagnosis of hypertension

== ENCOUNTER → 2024-04-05 09:27 | Outpatient (BNVA) | payer MEDICARE, SELFPAY | PROVIDERS: PCP Internal Medicine; Visit Provider Physician Assistant Medical | DX: K21.9 Gastro-esophageal reflux disease without esophagitis (principal); E78.5 Hyperlipidemia, unspecified; I63.9 Cerebral infarction, unspecified; R09.82 Postnasal drip; R03.0 Elevated blood-pressure reading, without diagnosis of hypertension | CPT/HCPCS: 99212 ==

== ENCOUNTER → 2024-04-08 23:59 | Outpatient (BNV) | payer MEDICARE, SELFPAY ==
--- NOTE | 2024-04-11 12:06 | MHC.OFFVIS ---
Intake Visit Reasons: Remote ILR check- [employer] Allergies Hywcsiq-MYE-DeM Reductase Inhibitor Adverse Reaction (Unknown, Verified 04/05/24 10:23) Unknown [facility] Medical History (Updated 04/05/24 @ 10:26 by Belinda Can PA-C) Elevated BP without diagnosis of hypertension Post-nasal drip CVA (cerebral vascular accident) High cholesterol Surgical History H/O colonoscopy (~07/22/23) No pertinent past surgical history Family History Father No problems noted. Mother No problems noted. Social History Household Members: Spouse Housing: House Do you presently have visiting nurse or other home services: No Alcohol intake: current Alcohol intake frequency: does not drink Alcohol type: beer Patient Tobacco Use Status: Never used Tobacco Second Hand Smoke Exposure: No service: No Current occupational status: retired Office Procedures Cardiac Device Check Cardiac Device Check Details: Date of service 04/08/2024; in the current monitoring period, there is no evidence of atrial fibrillation. [id number] Cardiac Interrogation, subcut cardiac rhythm monitor Procedure code (CPT) selection complete Assessment & Plan Assessment & Plan (1) Implantable loop recorder present: Code(s): Z95.818 - Presence of other cardiac implants and grafts Category: Medical (2) Cerebrovascular accident: Code(s): I63.9 - Cerebral infarction, unspecified Category: Medical Plan x Coding Level of Care Code Procedure Only Diagnoses Implantable loop recorder present Z95.818 Cerebrovascular accident I63.9 CPT Codes Cardiac Device Check - Cardiac Device 16: [id number]-[id number] Cardiac Interrogation, subcut cardiac rhythm monitor ([id number])
== END ==
PROVIDERS: PCP Internal Medicine; Visit Provider Internal Medicine
DX: I63.9 Cerebral infarction, unspecified (principal); Z95.818 Presence of other cardiac implants and grafts
CPT/HCPCS: 93298

== ENCOUNTER 2024-04-14 12:33 | Outpatient (AMB) | payer MEDICARE, SELFPAY ==
[2024-04-14 12:40] VITALS: BP 124/76; PULSE 103; BMI 28.6
--- NOTE | 2024-04-14 12:40 | A.OFFVIS_ITS ---
Vital Signs 04/14/24 12:40 Height 5 ft 8 in Weight 187 lb 13.341 oz BMI 28.6 BP 124/76 Blood Pressure Location Lt brachial Position Sitting Pulse 103 H Pulse Source Pulse Oximeter Intake Visit Reasons: 1 yr f/up Business Banking Officer Required: No Accompanied by: Self / Same As Patient Allergies Muxdfch-GVB-PeL Reductase Inhibitor Adverse Reaction (Unknown, Verified 04/05/24 10:23) Unknown Medication List - Last Reconciled 04/14/24 by Ramesh Madison MD aspirin 81 mg PO DAILY cholecalciferol (vitamin D3) (Vitamin D3) 25 mcg PO DAILY fexofenadine-pseudoephedrine 180-240 mg ER (Ana Maria-D 24 Hour) 1 tab PO QAM fluticasone propionate 50 mcg/actuation (Flonase Allergy Relief) 2 sprays intranasal DAILY pantoprazole 40 mg PO BEDTIME pravastatin 40 mg PO DAILY 90 days HPI Comments Details: Rm returns for follow-up. In 2021, he was seen regarding stroke. At that time, the history is that he was playing golf and all of sudden had some vertigo. Then diagnosed with cerebellar stroke and he received tPA. Then fully recovered. Then received implantable loop recorder. Overall, quite healthy without any known cardiac issues. Denies any coronary artery disease or myocardial infarction or in fact anything else cardiac related. Not a known hypertensive or diabetic either. He states he feels good. No cardiac concerns. [facility] Medical History (Updated 04/05/24 @ 10:26 by Belinda Can PA-C) Elevated BP without diagnosis of hypertension Post-nasal drip CVA (cerebral vascular accident) High cholesterol Surgical History H/O colonoscopy (~07/22/23) No pertinent past surgical history Family History Father No problems noted. Mother No problems noted. Social History Household Members: Spouse Housing: House Do you presently have visiting nurse or other home services: No Alcohol intake: current Alcohol intake frequency: does not drink Alcohol type: beer Patient Tobacco Use Status: Never used Tobacco Second Hand Smoke Exposure: No service: No Current occupational status: retired Review of Systems Const All systems reviewed & are unremarkable except as noted in HPI and below Reports as per HPI and Reports no additional complaints Eyes Reports as per HPI and Denies no additional complaints ENT Denies no additional complaints and Reports as per HPI Card Reports as per HPI, Reports no additional complaints, Denies acrocyanosis, Denies chest pain, Denies leg edema, Denies lightheadedness, Denies palpitations and Denies dyspnea Resp Reports as per HPI, Denies no additional complaints and Denies dyspnea GI Reports as per HPI and Denies no additional complaints Reports no additional complaints and Reports as per HPI Musc Reports no additional complaints and Reports as per HPI Skin/Breast Reports system reviewed and no additional complaints, except as documented Neuro Reports no additional complaints and Reports as per HPI Psych Reports no additional complaints and Reports as per HPI Endo Reports no additional complaints, Reports as per HPI and Denies palpitations Sid/Lymph Reports no additional complaints and Reports as per HPI Aller/Immun Reports no additional complaints and Reports as per HPI Physical Exam Vital Signs: Last Vital Signs Pulse 103 H 04/14/24 12:40 BP 124/76 04/14/24 12:40 BMI result Body Mass Index 28.6 Const General: comfortable and no acute distress Orientation/consciousness: patient oriented x3 HEENT Other: Unremarkable Head: Yes normal to inspection Neck Neck: Yes normal visual inspection Chest Chest palpation & inspection: normal inspection of the chest Resp Auscultation: clear to auscultation bilaterally Cardio Palpation: normal PMI Heart sounds: S1 normal heart sound present, S2 normal heart sound present, no gallops, no murmurs and no rubs GI Palpation (GI): Soft to palpation Back/Spine/Pelvis Other: unremarkable Skin General skin exam: no rashes or lesions noted Neuro General: patient oriented x3 Extrem General: Yes normal to inspection Psych Mental Status: mental status grossly normal Assessment & Plan Assessment & Plan (1) Cerebrovascular accident: Code(s): I63.9 - Cerebral infarction, unspecified Category: Medical (2) Hyperlipidemia, unspecified: Code(s): E78.5 - Hyperlipidemia, unspecified Category: Medical (3) Statin intolerance: Code(s): Z78.9 - Other specified health status Category: Medical Plan Cardiac and neurological studies reviewed. Baseline EKG is unremarkable. Brain MRI had reported several small acute infarcts in the right cerebellar hemisphere. Head and neck CTA had shown no significant arterial stenosis in the head or neck. Echocardiogram with LVEF of 60-65%. Mild increase in RV size. Otherwise unremarkable. Bubble study was negative. In the transesophageal echocardiogram, suspected small PFO with minimal shunting and not thought to be the etiology for stroke. 30 day monitor showed no atrial fibrillation. Occasional PVCs. Implantable loop recorder monitoring also so far unremarkable. With regard to etiology for stroke, not entirely clear. May remain on Aspirin. Otherwise, he has multiple issues with statins. It seems he has tried simvastatin in the past and actually was taking it at the time of stroke. At orvastatin led to headaches. Pravastatin did not work well. Rosuvastatin made him tired. Then put on Repatha. The lipids improved significantly and LDL was only in the 30s. However, his cost went up almost 8 times and he is back on the pravastatin. Hence unfortunately not much of a choice. We will follow him up in One year. In the interim, call with concerns. Coding Level of Care Code Est Pt Level 4 (17561) Complex EM visit Add On G2211 Diagnoses Cerebrovascular accident I63.9 Hyperlipidemia, unspecified E78.5 Statin intolerance Z78.9
--- OUTSIDE RECORDS SUMMARY | 2024-04-14 14:57 | XMS_ITS ---
Author Organization [facility] Address [address] [place] [address] Care Team Providers Care Feeder Catcher Tobacco Name Role Phone NE MEJIA Primary Care Provider Esvin Braun Unavailable [phone] REASON FOR VISIT change date of colonoscopy Encounters Encounter Location Date Provider Diagnosis [facility] [address] [place] [address] 04/16/2023 Esvin Gibbons PLAN OF TREATMENT Next Appt Details Provider Name:Esvin Gibbons , 07/15/2024 01:40:00 PM, [address] [facility] [address] [facility] [address], [address], [place], [address],
--- OUTSIDE RECORDS SUMMARY | 2024-04-14 14:57 | XMS_ITS ---
Author Organization [facility] Address [address] [place] [address] Care Team Providers Care Dive Supervisor Name Role Phone NE MEJIA Primary Care Provider Esvin Braun Unavailable [phone] REASON FOR VISIT screening,hx polyps PROBLEMS Problem Type ICD Code Onset Dates Problem Status W/U Status Risk SNOMED Code Notes Problem Diverticulosis of large intestine without perforation or abscess without bleeding (K57.30) Active confirmed Diverticul ar disease of colon (843974600) Encounters Encounter Location Date Provider Diagnosis [facility] [place] [address] [place], [place] [phone] 07/22/2023 Esvin Gibbons Encounter for scre ening [...] 01:40:00 PM, [address], [address], [place], [address],
--- OUTSIDE RECORDS SUMMARY | 2024-04-14 14:57 | XMS_ITS ---
Author Organization [facility] Address [address] [place] [id number] Care Team Providers Care Course Developer Name Role Phone NE MEJIA Primary Care Provider Esvin Braun [phone] ALLERGIES No Known Allergies REASON FOR VISIT Patient presents today for a recall colonoscopy MEDICATIONS Medication SIG (Take, Route, Frequency, Duration) Notes Start Date End Date Status Aspirin Active Vitamin D Active Pravastatin Sodium 40 MG Oral for 90 Active Repatha SureClick 140 MG/ML INJECT 140 MG SUBCUTANEOUSLY EVERY 2 WEEKS Subcutaneous for 84 Active VITAL SIGNS Temperature 97.7 degrees Fahrenheit 04/16/19 24 Blood pressure systolic 00 mm Hg 04/16/19 24 Blood pressure diastolic 00 mm Hg 024 Height 69 in 04/16/2023 Weight 184 lbs 04/16/2023 BMI 27.17 kg/m2 04/16/2023 Encounters Encounter Location Date Provider Diagnosis [facility] [address] [place] [phone] 04/16/2023 Esvin Gibbons History of adenomato us [...] Next Appt Details Follow Up: prn, Reason: Provider Name:Esvin Gibbons , 07/15/2024 01:40:00 PM, [address], [address], [place], [address], Progress Notes * Examination Category Sub-Category Detail [...]
--- OUTSIDE RECORDS SUMMARY | 2024-04-14 14:58 | XMS_ITS | Patient Health Record ---
Author Organization [facility] Address [address] [place] [phone] Care Team Providers Care Recyclable Materials Collector Name Role Phone NE MEJIA Primary Care Provider Esvin Braun [phone] ALLERGIES No Known Allergies RESULTS Component Value Reference Range Notes Pathology (Not yet reviewed by provider) Interpretation: Performing Lab:[facility], [address] [place] [id number] Notes/Report: REASON FOR REFERRAL No Information MEDICATIONS [...] malignant neoplasm of colon (Z12.11) Active confirmed 145803693 Problem History of adenomatous polyp of colon (Z86.010) Active confirmed 600975485 Problem Diverticulosis of large intestine without perforation or abscess without bleeding (K57.30) Active confirmed Diverticul ar disease of colon (478651702) Problem Pre-procedural examination (Z01.818) Active confirmed [id number] VITAL SIGNS Temperature 97.7 degrees Fahrenheit 04/16/2023 Blood pressure diastolic 00 mm Hg 04/16/2023 Height 69 in 04/16/2023 Blood pressure systolic 00 mm Hg 04/16/2023 Weight 184 lbs 04/16/2023 BMI 27.17 kg/m2 04/16/2023 Encounters Encounter Location Date Provider Diagnosis [facility] Outpatient [address] [place], [place] [phone] 07/22/2023 Esvin Gibbons Encounter for screen ing colonoscopy Z12.11 ; Colon polyps K63.5 ; Diverticulosis of large intestine without perforation or abscess without bleeding K57.30 and Internal hemorrhoids K64.8 [facility] [address] [place] [address] [address] [place] [address] 04/16/2023 Esvin Gibbons History of adenomato us polyp of colon Z86.010 ; Pre-procedural examination Z01.818 and Encounter for screening for malignant neoplasm of colon Z12.11 [facility] [address] [place] [address] 04/16/2023 Esvin Gibbons ASSESSMENTS Encounter Date Diagnosis [...] Provider Name:Esvin Gibbons , 07/15/2024 01:40:00 PM, [address] [place] [address], [address], [place], [address], Insurance Providers Payer Name Payer Address Payer Phone Subscriber Number Group Number Insured Name Patient Relationship to Insured Coverage Start Date Coverage End Date [facility] [address] [place], [place] [id number] RILEY ALEX Self - patient is the insured MEDICAL (GENERAL) HISTORY Medical History History ICD Code Hyperlipidemia Denies [place],DM,Lung disease,renal disease Colonoscopies in 2007, 01/05 13, 12/2017 with small tubular adenomas removed, diverticulosis, and intermnal hemorrhoids Stroke 05/2021 due to a clot and treated with a thrombolytic- Loop recorder-Dr. Madison--negative as of the 03/2023 OV Surgical History Surgery Date(Month/Year)
--- OUTSIDE RECORDS SUMMARY | 2024-04-14 14:58 | XMS_ITS ---
Author Organization Esvin Gomes DO, FACP Address [address] [place], [place] [id number] Care Team Providers Care Help Desk Consultant Name Role Phone Esvin Gomes Primary Care Provider REASON FOR VISIT RE:DR. MEJIA Encounters Encounter Location Date Provider Diagnosis Esvin Gomes DO [address] [phone] 02/24/2024 Esvin Gomes PLAN OF TREATMENT No Information
--- OUTSIDE RECORDS SUMMARY | 2024-04-14 14:58 | XMS_ITS ---
Author Organization Esvin Gomes DO [facility] Address [address] [place], [place] [id number] Care Team Providers Care Event Crew Technician Name Role Phone Esvin Gomes Primary Care Provider REASON FOR VISIT DR MEJIA Encounters Encounter Location Date Provider Diagnosis Esvin Gomes DO, FACP [address] [place] [phone] 02/24/2024 Esvin Gomes PLAN OF TREATMENT No Information
--- OUTSIDE RECORDS SUMMARY | 2024-04-14 14:58 | XMS_ITS ---
Author Organization [facility] Address [address] [place], [place] [phone] Care Team Providers Care Education Nurse Name Role Phone Esvin Gomes Primary Care Provider REASON FOR VISIT appointment Encounters Encounter Location Date Provider Diagnosis Esvin Gomes DO [address] [phone] 02/24/2024 Esvin Gomes PLAN OF TREATMENT No Information
== END 2024-04-14 12:54 | disposition home or self-care (01) ==
PROVIDERS: PCP Internal Medicine; Visit Provider Internal Medicine
DX: I63.9 Cerebral infarction, unspecified (principal); E78.5 Hyperlipidemia, unspecified; Z78.9 Other specified health status
CPT/HCPCS: 99214; G2211

== ENCOUNTER → 2024-04-14 12:33 | Outpatient (BNVA) | payer MEDICARE, SELFPAY | PROVIDERS: PCP Internal Medicine; Visit Provider Internal Medicine | DX: I25.2 Old myocardial infarction (principal); E78.5 Hyperlipidemia, unspecified; T46.6X5D Adverse effect of antihyperlipidemic and antiarteriosclerotic drugs, subsequent encounter | CPT/HCPCS: 99212 ==

== ENCOUNTER → 2024-05-09 23:59 | Outpatient (BNV) | payer MEDICARE, SELFPAY ==
--- NOTE | 2024-05-18 21:10 | MHC.OFFVIS ---
Intake Visit Reasons: Remote ILR check- [employer] Allergies Rqqzfzw-XGM-GlU Reductase Inhibitor Adverse Reaction (Unknown, Verified 04/05/24 10:23) Unknown [facility] Medical History (Updated 04/05/24 @ 10:26 by Belinda Can PA-C) Elevated BP without diagnosis of hypertension Post-nasal drip CVA (cerebral vascular accident) High cholesterol Surgical History H/O colonoscopy (~07/22/23) No pertinent past surgical history Family History Father No problems noted. Mother No problems noted. Social History Household Members: Spouse Housing: House Do you presently have visiting nurse or other home services: No Alcohol intake: current Alcohol intake frequency: does not drink Alcohol type: beer Patient Tobacco Use Status: Never used Tobacco Second Hand Smoke Exposure: No service: No Current occupational status: retired Office Procedures Cardiac Device Check Cardiac Device Check Details: Date of service 05/09/2024; in the current monitoring period, there is no evidence of atrial fibrillation. [id number] Cardiac Interrogation, subcut cardiac rhythm monitor Procedure code (CPT) selection complete Assessment & Plan Assessment & Plan (1) Implantable loop recorder present: Code(s): Z95.818 - Presence of other cardiac implants and grafts Category: Medical (2) Cerebrovascular accident: Code(s): I63.9 - Cerebral infarction, unspecified Category: Medical Plan x Coding Level of Care Code Procedure Only Diagnoses Implantable loop recorder present Z95.818 Cerebrovascular accident I63.9 CPT Codes Cardiac Device Check - Cardiac Device 16: [id number] Cardiac Interrogation, subcut cardiac rhythm monitor ([id number])
== END ==
PROVIDERS: PCP Internal Medicine; Visit Provider Internal Medicine
DX: I63.9 Cerebral infarction, unspecified (principal); Z95.818 Presence of other cardiac implants and grafts
CPT/HCPCS: 93298

== ENCOUNTER → 2024-06-09 23:59 | Outpatient (BNV) | payer MEDICARE, SELFPAY ==
--- NOTE | 2024-06-16 13:18 | MHC.OFFVIS ---
Intake Visit Reasons: REmote ILr check- [employer] Allergies Yzelkfg-GCK-CfO Reductase Inhibitor Adverse Reaction (Unknown, Verified 06/15/24 09:17) Unknown [facility] Medical History (Updated 06/15/24 @ 09:36 by Belinda Can PA-C) Overweight (BMI 25.0-29.9) Leukopenia Annual physical exam Elevated AST (SGOT) Hyperbilirubinemia Elevated BP without diagnosis of hypertension Post-nasal drip CVA (cerebral vascular accident) High cholesterol Surgical History H/O colonoscopy (~07/22/23) No pertinent past surgical history Family History Father No problems noted. Mother No problems noted. Social History (Updated 06/15/24 @ 09:12 by ANNELIESE Weir) Household Members: Spouse Housing: House Do you presently have visiting nurse or other home services: No Alcohol intake: current Alcohol intake frequency: holidays/special occasions only Alcohol type: beer Patient Tobacco Use Status: Former Tobacco user service: No Current occupational status: retired Cognitive needs: No Hearing needs: No Vision needs: Yes (rx glasses) Office Procedures Cardiac Device Check Cardiac Device Check Details: Date of service 06/09/2024; in the current monitoring period, there is no evidence of atrial fibrillation. [id number] Cardiac Interrogation, subcut cardiac rhythm monitor Procedure code (CPT) selection complete Assessment & Plan Assessment & Plan (1) Implantable loop recorder present: Code(s): Z95.818 - Presence of other cardiac implants and grafts Category: Medical (2) Cerebrovascular accident: Code(s): I63.9 - Cerebral infarction, unspecified Category: Medical Plan x Coding Level of Care Code Procedure Only Diagnoses Implantable loop recorder present Z95.818 Cerebrovascular accident I63.9 CPT Codes Cardiac Device Check - Cardiac Device 16: [id number] Cardiac Interrogation, subcut cardiac rhythm monitor ([id number])
== END ==
PROVIDERS: PCP Internal Medicine; Visit Provider Internal Medicine
DX: I63.9 Cerebral infarction, unspecified (principal); Z95.818 Presence of other cardiac implants and grafts
CPT/HCPCS: 93298

== ENCOUNTER 2024-06-11 08:38 | Outpatient (REF) | payer MEDICARE, SELFPAY ==
[2024-06-11 11:11] LABS: MANUAL DIFF FLAG NO
[2024-06-11 11:27] LABS: Basophils Percent Auto 0.7 % (0-2); Eosinophils Absolute Auto 0.1 X10*3/uL (0.0-0.4); Eosinophils Percent Auto 2.3 % (0-4); Hematocrit 44.6 % (42.0-52.0); Hemoglobin 15.4 g/dl (14.0-18.0); Imm Gran Abs Auto 0.01 X10*3/uL (0.00-0.03); Imm Gran Pct Auto 0.2 % (0.0-0.4); Lymphocytes Absolute Auto 1.6 X10*3/uL (1.2-4.9); Mean Corpuscular HGB Conc 34.5 g/dl (31.0-36.0); Mean Corpuscular Volume 89.7 fL (80.0-98.0); Monocytes Absolute Auto 0.4 X10*3/uL (0.1-1.2); Monocytes Percent Auto 9.5 % (2-11); Neutrophils Absolute Auto 2.2 x10*3/uL (2.0-8.3); Neutrophils Percent Auto 50.3 % (45-73); Platelet Count 277 X10*3/uL (160-400); Red Blood Count 4.97 X10*6/uL (4.60-5.80); Red Cell Distribution Width 13.5 % (11.0-16.0); White Blood Count 4.4 X10*3/uL (4.8-10.8)
[2024-06-11 11:43] LABS: Estimated Average Glucose 103 mg/dL; Hemoglobin A1C 132.3291 umol/L; Hemoglobin A1c % 5.2 % (<6.0)
[2024-06-11 12:04] LABS: Alanine Aminotransferase 31 U/L (0-40); Albumin Level 4.2 g/dL (3.5-5.0); Alkaline Phosphatase 55 U/L (39-117); Anion Gap 10 (12-20); Aspartate Amino Transferase 41 U/L (5-37); Bilirubin Direct 0.4 mg/dL (0.0-0.5); Bilirubin Total 1.4 mg/dL (0.0-1.0); Blood Urea Nitrogen 19 mg/dL (9-16); Calcium 9.1 mg/dL (8.4-10.2); Carbon Dioxide 24 mmol/L (22-29); Chloride 109 mmol/L (96-108); Cholesterol 149 mg/dL (<200); Estimated Glomerular Filt Rate > 60; Glucose Fasting 110 mg/dL (60-99); HDL Cholesterol 47 mg/dL (>40); LDL Cholesterol Calculated 86 mg/dL (<100); Magnesium 2.2 mg/dL (1.6-2.6); Potassium 4.4 mmol/L (3.3-5.1); Sodium 139 mmol/L (135-145); Total Protein 6.7 g/dL (6.5-8.0); Triglycerides 80 mg/dL (<150)
[2024-06-11 12:23] LABS: TSH reflex Free T4 0.89 uIU/mL (0.32-4.0); Vitamin D 25-OH Total 49.8 ng/mL (>30)
[2024-06-11 12:24] LABS: Folate 7.4 ng/mL (> or = 4.0); Vitamin B12 308 pg/mL (200-900)
== END 2024-06-11 08:39 | disposition home or self-care (01) ==
LOC: HO.HMGCLDS 08:38
PROVIDERS: PCP Internal Medicine; Visit Provider Physician Assistant Medical
DX: Z09 Encounter for follow-up examination after completed treatment for conditions other than malignant neoplasm (principal); K21.9 Gastro-esophageal reflux disease without esophagitis; E78.5 Hyperlipidemia, unspecified; Z78.9 Other specified health status; Z86.73 Personal history of transient ischemic attack (TIA), and cerebral infarction without residual deficits; R05.9 Cough, unspecified; I63.9 Cerebral infarction, unspecified
CPT/HCPCS: 36415; 80053; 80061; 80076; 82248; 82306; 82607; 82746; 83036; 83735; 84443; 85025

== ENCOUNTER 2024-06-15 08:54 | Outpatient (AMB) | payer MEDICARE, SELFPAY ==
[2024-06-15 08:56] VITALS: BP 153/80; PULSE 78; RESP 14; TEMP 36.6; O2SAT 97; BMI 27.9
--- NOTE | 2024-06-15 08:56 | MHC.PC.OV ---
Vital Signs 06/15/24 08:56 Height 5 ft 8.25 in Weight 185 lb BMI 27.9 BP 153/80 H Respiration 14 Pulse 78 Pulse Source Pulse Oximeter Temp 97.8 F Temp Source Temporal Artery Scan Pulse Oximetry (%) 97 Oxygen Delivery Method Room Air Intake Visit Reasons: physical Punch Press Setter Required: No Accompanied by: Self / Same As Patient Allergies Xsbffnw-ILE-RkK Reductase Inhibitor Adverse Reaction (Unknown, Verified 06/15/24 09:17) Unknown Medication List - Last Reconciled 06/15/24 by Belinda Can PA-C aspirin 81 mg PO DAILY cholecalciferol (vitamin D3) (Vitamin D3) 25 mcg PO DAILY pravastatin 40 mg PO DAILY 90 days Tobacco use date assessed: 06/15/24 Fall risk assessment: No Falls in past year Last assessed Fall Risk: 06/15/24 Dental Screening Dental Screen Date: 06/15/24 Did you have a dental visit in the last 12 months?: Yes Did you have a dental problem in the last 6 months where you did not have access to dental care?: No Was dental information given to patient?: Patient has dentist HPI physical HPI Details The patient is a 73-year-old male presenting annual physical exam. He has a past history of postnasal drip, GERD, and hypertension. There is a history of postnasal drip has improved significantly for which the patient has discontinued using Flonase. GERD was previously managed with medication, which the patient has now ceased as the condition seemed resolved after a viral illness that persisted for approximately a month. The patient's blood pressure, typically well-managed, was found slightly elevated and may correlate with caffeine intake, as readings in subsequent checks returned to normal levels. Regarding liver function, the patient's bilirubin and liver enzymes have shown fluctuations but remained stable for several years without considerable change. The patient historically managed a heart murmur, and recent evaluation revealed no abnormalities such as ventricular enlargement or murmurs. Activity includes regular golf sessions, indicative of good functional ability post-mcc. Laboratory evaluations noted dehydration likely due to fasting before blood work and mild leukopenia, possibly related to recent illness. Social History - Retired, plays golf three to four times weekly, indicating maintained physical activity. - Minimal caffeine use was discussed and linked to potential blood pressure changes. [facility] Medical History (Updated 06/15/24 @ 09:36 by Belinda Can PA-C) Overweight (BMI 25.0-29.9) Leukopenia Annual physical exam Elevated AST (SGOT) Hyperbilirubinemia Elevated BP without diagnosis of hypertension Post-nasal drip CVA (cerebral vascular accident) High cholesterol Surgical History H/O colonoscopy (~07/22/23) No pertinent past surgical history Family History Father No problems noted. Mother No problems noted. Social History (Updated 06/15/24 @ 09:12 by ANNELIESE Weir) Household Members: Spouse Housing: House Do you presently have visiting nurse or other home services: No Alcohol intake: current Alcohol intake frequency: holidays/special occasions only Alcohol type: beer Patient Tobacco Use Status: Former Tobacco user service: No Current occupational status: retired Cognitive needs: No Hearing needs: No Vision needs: Yes (rx glasses) Questionnaire PHQ-9 Over the last 2 weeks, how often have you been bothered by any of the following problems? 1. Little interest or pleasure in doing things: not at all 2. Feeling down, depressed, or hopeless: not at all 3. Trouble falling or staying asleep, or sleeping too much: not at all 4. Feeling tired or having little energy: not at all 5. Poor appetite or overeating: not at all 6. Feeling bad about yourself - or that you are a failure or have let yourself or your family down: not at all 7. Trouble concentrating on things, such as reading the newspaper or watching television: not at all 8. Moving or speaking so slowly that other people could have noticed. Or the opposite - being so fidgety or restless that you have been moving around a lot more than usual: not at all 9. Thoughts that you would be better off or of hurting yourself in some way: not at all Total score: 0 Depression Screening Interpretation: Negative Depression Screening Done: Yes 65921 - PHQ-9 Billing: Yes Source: Developed by Drs. Esvin Rinaldi, Hui Palomino, Camron Boucher and colleagues, with an educational alexis from [employer]. Thrive Questionnaire Date Thrive assessed: 06/15/24 I am a: Patient What is your living situation today?: I have a steady place to live Within the past 12 months, did the food you bought not last and you didn't have the money to get more?: Never true Within the past 12 months, did you worry whether your food would run out before you got money to buy more?: Never true Do you have trouble paying for medicines?: No Do you have trouble getting transportation to medical appointments?: No Do you have trouble paying your heating and electricity bill?: No Do you have trouble taking care of your child, family member or friend?: No Do you have trouble with day-to-day activities such as bathing, preparing meals, shopping, managing finances, etc.?: No Are you currently unemployed and looking for a job?: No Are you interested in more education?: No Please select the resources that you would like help with: None THRIVE Score: 0 AUDIT C Alcohol Use Questionnaire (AUDIT-C) 1. How often do you have a drink containing alcohol?: Monthly or less 2. How many drinks containing alcohol do you have on a typical day when you are drinking?: 1 or 2 3. How often do you have six or more drinks on one occasion?: Never Total Score: 1 Score Reviewed/Action Taken: No ALONSO-7 AMB Questionnaire ALONSO-7 Date ALONSO - 7 assessed: 06/15/24 Feeling nervous, anxious, or on edge: 0 = Not at all Not being able to stop or control worryin = Not at all Worrying too much about different things: 0 = Not at all Trouble relaxin = Not at all Being so restless that it is hard to sit still: 0 = Not at all Becoming easily annoyed or irritable: 0 = Not at all Feeling afraid as if something awful might happen: 0 = Not at all Total ALONSO-7 score (0-4 normal; 5-9 mild; 10-14 moderate; 15-21 severe): 0 Source: Developed by Drs. Esvin Rinaldi, Hui Palomino, Camron Boucher and colleagues, with an educational alexis from [employer]. ALONSO-7 Assessment Billing ALONSO-7 Assessment Tool: ALONSO-7 Assessment 67900 Review of Systems Const Details: - Respiratory: Reports occasional postnasal drip improvement. - Gastrointestinal: Denies GERD symptoms following treatment cessation. - Cardiovascular: Denies chest pain, shortness of breath, murmurs post-discontinuation of prophylactic antibiotics. - Neurological: Denies dizziness or persistent headaches. - Musculoskeletal: Denies leg swelling or calf tenderness. - General: Denies recent falls or accidents. Physical exam (Primary Care) Vital Signs: Last Vital Signs Temp 97.8 F 06/15/24 08:56 Pulse 78 06/15/24 08:56 Resp 14 06/15/24 08:56 BP 153/80 H 06/15/24 08:56 Pulse Ox 97 06/15/24 08:56 Oxygen Delivery Method Room Air 06/15/24 08:56 Care Plan Goal for BP management: <130/90 patient to decrease his caffeine intake and monitor his blood pressure and call us if his blood pressure remains over 130/90 although at last visit patient's blood pressure was normal BMI result Body Mass Index 27.9 BMI Assessment/Plan discussion: High BMI High, discussed plan: lifestyle, weight reduction, dietary, physical activity and alcohol moderation Tobacco/Smoking Status: Tobacco use Status Tobacco use date assessed 06/15/24 06/15/24 08:59 Patient Tobacco Use Status Former Tobacco user 06/15/24 09:12 PHQ-9: PHQ-9 Score PHQ-9: Total score 0 06/15/24 09:17 Depression Screening Interpretation: Negative Thrive Assessment: Date of Thrive Assessment Date Thrive assessed 06/15/24 06/15/24 08:59 Const Other: Appearance: Alert. Oriented X3. No acute distress. Head: Normal external exam. Normocephalic. Atraumatic. Eyes: Pupils are equal, round, and reactive to light. Extraocular movements intact. Conjunctiva and sclera normal. Eyelids normal. Ears: External auditory canal normal. Tympanic membranes normal. Throat: Pharynx normal. Uvula midline. Moist mucous membranes. Neck: Normal inspection. Neck supple. Full range of motion. No adenopathy. Thyroid Normal. No meningeal signs. No neck mass noted. Cardiovascular: Normal heart rate and rhythm. Heart sound normal. No murmurs noted. Pulses normal throughout. Respiratory: No respiratory distress. Painless inspiration. Breath sounds normal. No wheezes/rales/rhonchi noted. Chest nontender. No accessory muscle usage noted or decreased air movement noted. Abdomen: Soft and nontender. Back: Full range of motion noted. Skin: Skin warm and dry. Normal skin color. Normal skin turgor. No rashes/lesions/lacerations noted. Extremities: No lower extremity edema. Extremities exhibit normal range of motion. Extremities nontender. Neuro: Oriented X 3. No motor deficit. No sensory deficit. Reflexes normal. Results Reviewed Results Reviewed: - Labs: Mildly decreased WBC count, possibly due to viral recovery; bilirubin 1.2 to 1.4, considered stable as per historical values. - Liver function: Elevated AST at 41 (normal <37), considered chronic; hydrational status reflected some dehydration. - Blood Glucose: Fasting glucose at 110 mg/dL, A1C at 5.2% confirms no diabetes diagnosis. Coding Level of Care Code Est Pt Level 4 (25699) Est Pt Prev Care >65y(76936) Diagnoses Annual physical exam Z00.00 Hyperbilirubinemia E80.6 Elevated AST (SGOT) R74.01 GERD (gastroesophageal reflux disease) K21.9 Post-nasal drip R09.82 Elevated BP without diagnosis of hypertension R03.0 Leukopenia D72.819 Overweight (BMI 25.0-29.9) E66.3 Additional Codes ALONSO-7 Assessment Billing - ALONSO-7 Assessment Tool: ALONSO-7 Assessment 49009 ([id number]) PHQ-9 - 58577 - PHQ-9 Billing: Yes ([id number]) Assessment & Plan Assessment & Plan (1) Annual physical exam: Code(s): Z00.00 - Encounter for general adult medical examination without abnormal findings Category: Medical (2) Hyperbilirubinemia: Code(s): E80.6 - Other disorders of bilirubin metabolism Category: Medical Plan: Liver enzymes remain slightly elevated yet stable, suggesting chronic condition. Routine monitoring suffices unless significant changes develop. (3) Elevated AST (SGOT): Code(s): R74.01 - Elevation of levels of liver transaminase levels Category: Medical Plan: Liver enzymes remain slightly elevated yet stable, suggesting chronic condition. Routine monitoring suffices unless significant changes develop. (4) GERD (gastroesophageal reflux disease): Code(s): K21.9 - Gastro-esophageal reflux disease without esophagitis Category: Medical Plan: GERD has resolved with medication cessation. Endoscopy is recommended for comprehensive reassessment despite clinical improvement. Condition is chronic and stable continue to monitor. (5) Post-nasal drip: Code(s): R09.82 - Postnasal drip Category: Medical Plan: The patient reported improvement in postnasal symptoms, with cessation of Flonase indicating the resolution likely post-viral. Continual monitoring is advised. (6) Elevated BP without diagnosis of hypertension: Code(s): R03.0 - Elevated blood-pressure reading, without diagnosis of hypertension Category: Medical Plan: Behavior adjustment, particularly caffeine reduction, was advised. Continued home monitoring of blood pressure should be followed, with medical intervention if required due to persistent elevation. (7) Leukopenia: Code(s): D72.819 - Decreased white blood cell count, unspecified Category: Medical Plan: Lower WBC count likely impacts recovery. A rerun of blood tests in follow-up visits should take place to check for normalization. (8) Overweight (BMI 25.0-29.9): Code(s): E66.3 - Overweight Category: Medical Plan: Patient has improved his diet and exercise regimen. Condition is chronic and stable continue to monitor. Plan Plan Patient was informed and verbally consented to the use of an ambient scribe for clinic note documentation during this visit. 1. Postnasal Drip The patient reported improvement in postnasal symptoms, with cessation of Flonase indicating the resolution likely post-viral. Continual monitoring is advised. 2. Gastroesophageal Reflux Disease GERD has resolved with medication cessation. Endoscopy is recommended for comprehensive reassessment despite clinical improvement. 3. Hypertension Behavior adjustment, particularly caffeine reduction, was advised. Continued home monitoring of blood pressure should be followed, with medical intervention if required due to persistent elevation. 4. Hyperbilirubinemia And Elevated Liver Enzymes Liver enzymes remain slightly elevated yet stable, suggesting chronic condition. Routine monitoring suffices unless significant changes develop. 5. Abnormal White Blood Cell Count Lower WBC count likely impacts recovery. A rerun of blood tests in follow-up visits should take place to check for normalization. 6. Dehydration Patient attributes dehydration to fasting. Improved hydration before future tests advised. I discussed the resolution of postnasal drip and GERD symptoms with the patient, highlighting the improvement post-viral illness. Emphasized continued cautious monitoring of blood pressure, suggesting caffeine reduction to prevent hypertensive spikes. The endoscopy was recommended to ensure GERD or potential esophageal disorders do not exacerbate; the procedure offers low risk and a thorough internal examination opportunity. Regular monitoring of liver function and complete blood count was advised, based on the historical stability but slight abnormalities evident in tests. The importance of hydration, especially before lab work, was underscored. I scheduled a follow-up appointment in one year, recommending the patient maintain open communication should symptoms re-emerge. Orders: Orders PSA,Total (Free>4and<10) Today Z00.00 - Encounter for general adult medical examination without abnormal findings Patient Instructions: - Monitor your blood pressure regularly and let me know if it stays high. - Reduce caffeine intake to help manage your blood pressure. - Stay hydrated, especially before any lab tests. - Attend the scheduled endoscopy to check your esophagus. - Follow up in one year or sooner if any new symptoms develop or current symptoms change. - Keep enjoying regular physical activity like golf as it supports overall health.
== END 2024-06-15 09:30 | disposition home or self-care (01) ==
PROVIDERS: PCP Internal Medicine; Visit Provider Physician Assistant Medical
DX: Z00.00 Encounter for general adult medical examination without abnormal findings (principal); E80.6 Other disorders of bilirubin metabolism; R74.01 Elevation of levels of liver transaminase levels; K21.9 Gastro-esophageal reflux disease without esophagitis; R09.82 Postnasal drip; R03.0 Elevated blood-pressure reading, without diagnosis of hypertension; D72.819 Decreased white blood cell count, unspecified; E66.3 Overweight

== ENCOUNTER → 2024-06-15 08:54 | Outpatient (BNVA) | payer MEDICARE, SELFPAY | PROVIDERS: PCP Internal Medicine; Visit Provider Physician Assistant Medical | DX: Z00.00 Encounter for general adult medical examination without abnormal findings (principal); K21.9 Gastro-esophageal reflux disease without esophagitis; I10 Essential (primary) hypertension; E80.6 Other disorders of bilirubin metabolism; R74.01 Elevation of levels of liver transaminase levels; R09.82 Postnasal drip; R03.0 Elevated blood-pressure reading, without diagnosis of hypertension; D72.819 Decreased white blood cell count, unspecified; E66.3 Overweight; Z68.27 Body mass index [BMI] 27.0-27.9, adult | CPT/HCPCS: 96127; 99397 ==

== ENCOUNTER 2024-06-17 11:13 | Outpatient (REF) | payer MEDICARE, SELFPAY ==
[2024-06-17 14:08] LABS: PSA,Total (Free>4and<10) 2.65 ng/mL (0.00-4.00)
== END 2024-06-17 11:14 | disposition home or self-care (01) ==
LOC: HO.HMGCLDS 11:13
PROVIDERS: PCP Internal Medicine; Visit Provider Physician Assistant Medical
DX: Z00.00 Encounter for general adult medical examination without abnormal findings (principal); Z12.5 Encounter for screening for malignant neoplasm of prostate
CPT/HCPCS: 36415; 84153

== ENCOUNTER → 2024-07-10 23:59 | Outpatient (BNV) | payer MEDICARE, SELFPAY ==
--- NOTE | 2024-07-17 09:14 | A.OFFVIS_ITS ---
Intake Visit Reasons: Remote ILR monitoring- [employer] Allergies Vvnszcy-TWU-GaZ Reductase Inhibitor Adverse Reaction (Unknown, Verified 06/15/24 09:17) Unknown [facility] Medical History (Updated 06/15/24 @ 09:36 by Belinda Can PA-C) Overweight (BMI 25.0-29.9) Leukopenia Annual physical exam Elevated AST (SGOT) Hyperbilirubinemia Elevated BP without diagnosis of hypertension Post-nasal drip CVA (cerebral vascular accident) High cholesterol Surgical History H/O colonoscopy (~07/22/23) No pertinent past surgical history Family History Father No problems noted. Mother No problems noted. Social History (Updated 06/15/24 @ 09:12 by ANNELIESE Weir) Household Members: Spouse Housing: House Do you presently have visiting nurse or other home services: No Alcohol intake: current Alcohol intake frequency: holidays/special occasions only Alcohol type: beer Patient Tobacco Use Status: Former Tobacco user service: No Current occupational status: retired Cognitive needs: No Hearing needs: No Vision needs: Yes (rx glasses) Office Procedures Cardiac Device Check Cardiac Device Check Details: Date of service 07/10/2024; in the current monitoring period, there is no evidence of atrial fibrillation. Short tachy episode 8 sec; ? Atrial tach. [id number] Cardiac Interrogation, subcut cardiac rhythm monitor Procedure code (CPT) selection complete Assessment & Plan Assessment & Plan (1) Implantable loop recorder present: Code(s): Z95.818 - Presence of other cardiac implants and grafts Category: Medical (2) Cerebrovascular accident: Code(s): I63.9 - Cerebral infarction, unspecified Category: Medical Plan x Coding Level of Care Code Procedure Only Diagnoses Implantable loop recorder present Z95.818 Cerebrovascular accident I63.9 CPT Codes Cardiac Device Check - Cardiac Device 16: [id number] Cardiac Interrogation, subcut cardiac rhythm monitor ([id number])
== END ==
PROVIDERS: PCP Internal Medicine; Visit Provider Internal Medicine
DX: I63.9 Cerebral infarction, unspecified (principal); Z95.818 Presence of other cardiac implants and grafts
CPT/HCPCS: 93298

== ENCOUNTER → 2024-08-10 23:59 | Outpatient (BNV) | payer MEDICARE, SELFPAY ==
--- NOTE | 2024-08-15 12:37 | MHC.OFFVIS ---
Intake Visit Reasons: Remote ILR monitoring- [employer] Allergies Xldkmnf-FJR-QiF Reductase Inhibitor Adverse Reaction (Unknown, Verified 06/15/24 09:17) Unknown [facility] Medical History (Updated 06/15/24 @ 09:36 by Belinda Can PA-C) Overweight (BMI 25.0-29.9) Leukopenia Annual physical exam Elevated AST (SGOT) Hyperbilirubinemia Elevated BP without diagnosis of hypertension Post-nasal drip CVA (cerebral vascular accident) High cholesterol Surgical History H/O colonoscopy (~07/22/23) No pertinent past surgical history Family History Father No problems noted. Mother No problems noted. Social History (Updated 06/15/24 @ 09:12 by ANNELIESE Weir) Household Members: Spouse Housing: House Do you presently have visiting nurse or other home services: No Alcohol intake: current Alcohol intake frequency: holidays/special occasions only Alcohol type: beer Patient Tobacco Use Status: Former Tobacco user service: No Current occupational status: retired Cognitive needs: No Hearing needs: No Vision needs: Yes (rx glasses) Office Procedures Cardiac Device Check Cardiac Device Check Details: Date of service 07/13/2024; in the current monitoring period, there is no evidence of atrial fibrillation. [id number] Cardiac Interrogation, subcut cardiac rhythm monitor Procedure code (CPT) selection complete Assessment & Plan Assessment & Plan (1) Implantable loop recorder present: Code(s): Z95.818 - Presence of other cardiac implants and grafts Category: Medical (2) Cerebrovascular accident: Code(s): I63.9 - Cerebral infarction, unspecified Category: Medical Plan x Coding Level of Care Code Procedure Only Diagnoses Implantable loop recorder present Z95.818 Cerebrovascular accident I63.9 CPT Codes Cardiac Device Check - Cardiac Device 16: [id number] Cardiac Interrogation, subcut cardiac rhythm monitor ([id number])
== END ==
PROVIDERS: PCP Internal Medicine; Visit Provider Internal Medicine
DX: I63.9 Cerebral infarction, unspecified (principal); Z95.818 Presence of other cardiac implants and grafts
CPT/HCPCS: 93298

== ENCOUNTER → 2024-09-10 23:59 | Outpatient (BNV) | payer MEDICARE, SELFPAY ==
--- NOTE | 2024-09-25 13:51 | MHC.OFFVIS ---
Intake Visit Reasons: Remote ILR monitoring- [employer] Allergies Iuwxohv-CTI-GpX Reductase Inhibitor Adverse Reaction (Unknown, Verified 06/15/24 09:17) Unknown [facility] Medical History (Updated 06/15/24 @ 09:36 by Belinda Can PA-C) Overweight (BMI 25.0-29.9) Leukopenia Annual physical exam Elevated AST (SGOT) Hyperbilirubinemia Elevated BP without diagnosis of hypertension Post-nasal drip CVA (cerebral vascular accident) High cholesterol Surgical History H/O colonoscopy (~07/22/23) No pertinent past surgical history Family History Father No problems noted. Mother No problems noted. Social History (Updated 06/15/24 @ 09:12 by ANNELIESE Weir) Household Members: Spouse Housing: House Do you presently have visiting nurse or other home services: No Alcohol intake: current Alcohol intake frequency: holidays/special occasions only Alcohol type: beer Patient Tobacco Use Status: Former Tobacco user service: No Current occupational status: retired Cognitive needs: No Hearing needs: No Vision needs: Yes (rx glasses) Office Procedures Cardiac Device Check Cardiac Device Check Details: Date of service 09/10/2024; in the current monitoring period, there is no evidence of atrial fibrillation. [id number] Cardiac Interrogation, subcut cardiac rhythm monitor Procedure code (CPT) selection complete Assessment & Plan Assessment & Plan (1) Implantable loop recorder present: Code(s): Z95.818 - Presence of other cardiac implants and grafts Category: Medical (2) Cerebrovascular accident: Code(s): I63.9 - Cerebral infarction, unspecified Category: Medical Plan x Coding Level of Care Code Procedure Only Diagnoses Implantable loop recorder present Z95.818 Cerebrovascular accident I63.9 CPT Codes Cardiac Device Check - Cardiac Device 16: [id number] Cardiac Interrogation, subcut cardiac rhythm monitor ([id number])
== END ==
PROVIDERS: PCP Internal Medicine; Visit Provider Internal Medicine
DX: I63.9 Cerebral infarction, unspecified (principal); Z95.818 Presence of other cardiac implants and grafts
CPT/HCPCS: 93298

== ENCOUNTER → 2024-10-11 23:59 | Outpatient (BNV) | payer MEDICARE, SELFPAY ==
--- NOTE | 2024-10-16 13:38 | MHC.OFFVIS ---
Intake Visit Reasons: Remote ILR check- [employer] Allergies Moonueo-ZTD-RrG Reductase Inhibitor Adverse Reaction (Unknown, Verified 06/15/24 09:17) Unknown [facility] Medical History (Updated 06/15/24 @ 09:36 by Belinda Can PA-C) Overweight (BMI 25.0-29.9) Leukopenia Annual physical exam Elevated AST (SGOT) Hyperbilirubinemia Elevated BP without diagnosis of hypertension Post-nasal drip CVA (cerebral vascular accident) High cholesterol Surgical History H/O colonoscopy (~07/22/23) No pertinent past surgical history Family History Father No problems noted. Mother No problems noted. Social History (Updated 06/15/24 @ 09:12 by ANNELIESE Weir) Household Members: Spouse Housing: House Do you presently have visiting nurse or other home services: No Alcohol intake: current Alcohol intake frequency: holidays/special occasions only Alcohol type: beer Patient Tobacco Use Status: Former Tobacco user service: No Current occupational status: retired Cognitive needs: No Hearing needs: No Vision needs: Yes (rx glasses) Office Procedures Cardiac Device Check Cardiac Device Check Details: Date of service 10/11/2024; in the current monitoring period, there is no evidence of atrial fibrillation. [id number] Cardiac Interrogation, subcut cardiac rhythm monitor Procedure code (CPT) selection complete Assessment & Plan Assessment & Plan (1) Implantable loop recorder present: Code(s): Z95.818 - Presence of other cardiac implants and grafts Category: Medical (2) Cerebrovascular accident: Code(s): I63.9 - Cerebral infarction, unspecified Category: Medical Plan x Coding Level of Care Code Procedure Only Diagnoses Implantable loop recorder present Z95.818 Cerebrovascular accident I63.9 CPT Codes Cardiac Device Check - Cardiac Device 16: [id number] Cardiac Interrogation, subcut cardiac rhythm monitor ([id number])
== END ==
PROVIDERS: PCP Internal Medicine; Visit Provider Internal Medicine
DX: I63.9 Cerebral infarction, unspecified (principal); Z95.818 Presence of other cardiac implants and grafts
CPT/HCPCS: 93298

== ENCOUNTER → 2024-11-11 23:59 | Outpatient (BNV) | payer MEDICARE, SELFPAY ==
--- NOTE | 2024-11-24 12:21 | A.OFFVIS_ITS ---
Intake Visit Reasons: Remote ILR check- [employer]onic Allergies Dhkdjag-NFF-BbB Reductase Inhibitor Adverse Reaction (Unknown, Verified 06/15/24 09:17) Unknown [facility] Medical History (Updated 06/15/24 @ 09:36 by Belinda Can PA-C) Overweight (BMI 25.0-29.9) Leukopenia Annual physical exam Elevated AST (SGOT) Hyperbilirubinemia Elevated BP without diagnosis of hypertension Post-nasal drip CVA (cerebral vascular accident) High cholesterol Surgical History H/O colonoscopy (~07/22/23) No pertinent past surgical history Family History Father No problems noted. Mother No problems noted. Social History (Updated 06/15/24 @ 09:12 by ANNELIESE Weir) Household Members: Spouse Housing: House Do you presently have visiting nurse or other home services: No Alcohol intake: current Alcohol intake frequency: holidays/special occasions only Alcohol type: beer Patient Tobacco Use Status: Former Tobacco user service: No Current occupational status: retired Cognitive needs: No Hearing needs: No Vision needs: Yes (rx glasses) Office Procedures Cardiac Device Check Cardiac Device Check Details: Date of service 11/11/2024; in the current monitoring period, there is no evidence of atrial fibrillation. [id number] Cardiac Interrogation, subcut cardiac rhythm monitor Procedure code (CPT) selection complete Assessment & Plan Assessment & Plan (1) Implantable loop recorder present: Code(s): Z95.818 - Presence of other cardiac implants and grafts Category: Medical (2) Cerebrovascular accident: Code(s): I63.9 - Cerebral infarction, unspecified Category: Medical Plan x Coding Level of Care Code Procedure Only Diagnoses Implantable loop recorder present Z95.818 Cerebrovascular accident I63.9 CPT Codes Cardiac Device Check - Cardiac Device 16: [id number] Cardiac Interrogation, subcut cardiac rhythm monitor ([id number])
== END ==
PROVIDERS: PCP Internal Medicine; Visit Provider Internal Medicine
DX: I63.9 Cerebral infarction, unspecified (principal); Z95.818 Presence of other cardiac implants and grafts
CPT/HCPCS: 93298

== ENCOUNTER → 2024-12-12 23:59 | Outpatient (BNV) | payer MEDICARE, SELFPAY ==
--- NOTE | 2024-12-21 16:19 | A.OFFVIS_ITS ---
Intake Visit Reasons: Remote ILR check- [employer]onic Allergies Qdulppn-MLY-FgS Reductase Inhibitor Adverse Reaction (Unknown, Verified 06/15/24 09:17) Unknown [facility] Medical History (Updated 06/15/24 @ 09:36 by Belinda Can PA-C) Overweight (BMI 25.0-29.9) Leukopenia Annual physical exam Elevated AST (SGOT) Hyperbilirubinemia Elevated BP without diagnosis of hypertension Post-nasal drip CVA (cerebral vascular accident) High cholesterol Surgical History H/O colonoscopy (~07/22/23) No pertinent past surgical history Family History Father No problems noted. Mother No problems noted. Social History (Updated 06/15/24 @ 09:12 by ANNELIESE Weir) Household Members: Spouse Housing: House Do you presently have visiting nurse or other home services: No Alcohol intake: current Alcohol intake frequency: holidays/special occasions only Alcohol type: beer Patient Tobacco Use Status: Former Tobacco user service: No Current occupational status: retired Cognitive needs: No Hearing needs: No Vision needs: Yes (rx glasses) Office Procedures Cardiac Device Check Cardiac Device Check Details: Date of service 12/12/2024; in the current monitoring period, there is no evidence of atrial fibrillation. One episode of 3 second pause 09:37hrs. 35808-Wlzkhu Cardiac Interrogation, subcut cardiac rhythm monitor Procedure code (CPT) selection complete Assessment & Plan Assessment & Plan (1) Implantable loop recorder present: Code(s): Z95.818 - Presence of other cardiac implants and grafts Category: Medical (2) History of stroke: Code(s): Z86.73 - Personal history of transient ischemic attack (TIA), and cerebral infarction without residual deficits Category: Medical Plan x Coding Level of Care Code Procedure Only Diagnoses Implantable loop recorder present Z95.818 History of stroke Z86.73 CPT Codes Cardiac Device Check - Cardiac Device 16: [id number] Cardiac Interrogation, subcut cardiac rhythm monitor ([id number])
== END ==
PROVIDERS: PCP Physician Assistant Medical; Visit Provider Internal Medicine
DX: Z86.73 Personal history of transient ischemic attack (TIA), and cerebral infarction without residual deficits (principal); Z95.818 Presence of other cardiac implants and grafts
CPT/HCPCS: 93298

== ENCOUNTER 2024-12-28 10:07 | Outpatient (AMB) | payer MEDICARE, SELFPAY ==
--- NOTE | 2024-12-28 10:11 | A.OFFVIS_ITS ---
Vital Signs 12/28/24 10:12 Height 5 ft 8 in Weight 180 lb 12.465 oz BMI 27.5 BP 140/70 H Blood Pressure Location Lt brachial Position Sitting Pulse 81 Pulse Source Monitor Intake Visit Reasons: f/up Allergies Qrsylos-EIY-VnX Reductase Inhibitor Adverse Reaction (Unknown, Verified 06/15/24 09:17) Unknown Medication List - Last Reconciled 12/28/24 by Ramesh Madison MD amlodipine 2.5 mg PO DAILY aspirin 81 mg PO DAILY cholecalciferol (vitamin D3) (Vitamin D3) 25 mcg PO DAILY pravastatin 40 mg PO DAILY HPI Comments Details: Rm returns for follow-up. In 2021, he was seen regarding stroke. At that time, the history is that he was playing golf and all of sudden had some vertigo. Then diagnosed with cerebellar stroke and he received tPA. Then fully recovered. Then received implantable loop recorder. Overall, quite healthy without any known cardiac issues. Denies any coronary artery disease or myocardial infarction or in fact anything else cardiac related. Not a known hypertensive or diabetic either. Recently, he was traveling and train to [place] and all of a sudden felt nauseous, dizzy and had some difficulty breathing. Then it spontaneously resolved. No chest pains. Currently, he is back to his normal self. Otherwise, no clear-cut exertional symptoms. [facility] Medical History (Updated 06/15/24 @ 09:36 by Belinda Can PA-C) Overweight (BMI 25.0-29.9) Leukopenia Annual physical exam Elevated AST (SGOT) Hyperbilirubinemia Elevated BP without diagnosis of hypertension Post-nasal drip CVA (cerebral vascular accident) High cholesterol Surgical History H/O colonoscopy (~07/22/23) No pertinent past surgical history Family History Father No problems noted. Mother No problems noted. Social History (Updated 06/15/24 @ 09:12 by ANNELIESE Weir) Household Members: Spouse Housing: House Do you presently have visiting nurse or other home services: No Alcohol intake: current Alcohol intake frequency: holidays/special occasions only Alcohol type: beer Patient Tobacco Use Status: Former Tobacco user service: No Current occupational status: retired Cognitive needs: No Hearing needs: No Vision needs: Yes (rx glasses) Review of Systems Const Denies weakness ENT Reports dizziness Card Denies chest pain, Denies chest pain with activity, Denies syncope, Denies rapid heart rate, Denies pedal edema, Denies edema, Denies leg edema, Denies lightheadedness, Denies palpitations, Reports dyspnea, Denies dyspnea on exertion and Denies orthopnea Resp Denies cough, Reports dyspnea and Denies dyspnea on exertion GI Denies hematochezia and Denies change in stool character Musc Denies abnormal gait, Denies muscle cramps, Denies muscle weakness, Denies numbness, Denies radiating pain into limb and Denies tingling Neuro Denies abnormal gait, Reports dizziness, Denies syncope, Denies numbness, Denies tingling and Denies weakness Endo Denies palpitations Physical Exam Vital Signs: Last Vital Signs Pulse 81 12/28/24 10:12 BP 140/70 H 12/28/24 10:12 BMI result Body Mass Index 27.5 Const General: comfortable and no acute distress Orientation/consciousness: patient oriented x3 HEENT Other: Unremarkable Head: Yes normal to inspection Neck Neck: Yes normal visual inspection Chest Chest palpation & inspection: normal inspection of the chest Resp Auscultation: clear to auscultation bilaterally Cardio Palpation: normal PMI Heart sounds: S1 normal heart sound present, S2 normal heart sound present, no gallops, no murmurs and no rubs GI Palpation (GI): Soft to palpation Back/Spine/Pelvis Other: unremarkable Skin General skin exam: no rashes or lesions noted Neuro General: patient oriented x3 Extrem General: Yes normal to inspection Psych Mental Status: mental status grossly normal Assessment & Plan Assessment & Plan (1) Cerebrovascular accident: Code(s): I63.9 - Cerebral infarction, unspecified Category: Medical (2) Hyperlipidemia, unspecified: Code(s): E78.5 - Hyperlipidemia, unspecified Category: Medical (3) Statin intolerance: Code(s): Z78.9 - Other specified health status Category: Medical Plan Cardiac and neurological studies reviewed. Baseline EKG is unremarkable. Brain MRI had reported several small acute infarcts in the right cerebellar hemisphere. Head and neck CTA had shown no significant arterial stenosis in the head or neck. Echocardiogram with LVEF of 60-65%. Mild increase in RV size. Otherwise unremarkable. Bubble study was negative. In the transesophageal echocardiogram, suspected small PFO with minimal shunting and not thought to be the etiology for stroke. 30 day monitor showed no atrial fibrillation. Occasional PVCs. Implantable loop recorder monitoring also so far unremarkable. With regard to etiology for stroke, not entirely clear. May remain on Aspirin. Otherwise, he has multiple issues with statins. It seems he has tried simvastatin in the past and actually was taking it at the time of stroke. Atorvastatin led to headaches. Pravastatin did not work well. Rosuvastatin made him tired. Then put on Repatha. The lipids improved significantly and LDL was only in the 30s. However, his cost went up almost 8 times and he is back on the pravastatin. Hence unfortunately not much of a choice. Most recent LDL is however acceptable at 86 mg/dL. With regard to recent symptoms of nausea, dizziness and shortness of breath, uncertain etiology. Nothing obvious on the implantable loop recorder monitoring. He is concerned about coronary disease although symptoms are very atypical. We will do an exercise stress perfusion imaging study. We will follow him up in One year. In the interim, call with concerns. Orders: Orders CA stress test Today R07.2 - Precordial pain NM cardiolite stress test Today R07.2 - Precordial pain Medications: New amlodipine 2.5 mg PO DAILY 90 tabs 1RF Coding Level of Care Code Est Pt Level 4 (78782) Complex EM visit Add On G2211 Diagnoses Cerebrovascular accident I63.9 Hyperlipidemia, unspecified E78.5 Statin intolerance Z78.9
[2024-12-28 10:12] VITALS: BP 140/70; PULSE 81; BMI 27.5
--- OUTSIDE RECORDS SUMMARY | 2024-12-28 11:51 | XMS_ITS | Clinical Summary ---
Author Organization [facility] Address [address] [place] [id number] Phone Care Team Providers Care Audit Associate Name Role Phone Esvin Gomes DO Primary Care Provider Allergies No known active allergies Medications No known medications Social History Tobacco Use Types Packs/Day Years Used Date Smoking Tobacco: Never Assessed Education Answer Date Recorded Are you interested in more education? Not on humberto e 06/14/2022 Are you concerned about learning? Not on file 06/14/2022 No 06/14/2022 No 06/14/2022 Digital Access Answer Date Recorded No 07/15/2022 No 07/15/2022 Reliable internet access at home? Not on file 07/15/2022 Device with a working camera? Not on file Intimate Partner Violence Answer Date R ecorded Are you denied basic needs s uch as food, clothing, or medical care? No 06/14/2022 In the past 12 months have y ou been in a relationship with a person who hurts, threatens, or tries to control you? No 06/14/2022 Are you denied basic needs s uch as food, clothing, or medical care? No 06/14/2022 In the past 12 months have y ou been in a relationship with a person who hurts, threatens, or tries to control you? No 06/14/2022 Sex and Gender Information Value Date Recorded Sex Assigned at Not on file Legal Sex Male 9:17 PM EDT Gender Identity Not on file Sexual Orientation Not on file Last Filed Vital Signs Vital Sign Reading Time Taken Comments Blood Pressure 116/72 06/14/2022 11:29 PM EDT Pulse 64 06/14/2022 11:29 PM EDT Temperature 36 C (96.8 F) 06/14/2022 11:29 PM EDT Respiratory Rate 18 06/14/2022 11:29 PM EDT Oxygen Saturation 96% 06/14/2022 11:29 PM EDT Inhaled Oxygen Concentration - - Weight - - Height - - Body Mass Index - - Plan of Treatment Not on file Medical Devices Not on file Insurance [employer] [place] MEDICARE PPO BLUE REPLACEMENT Care Teams Audit Associate Relationship Specialty Start Date End Date Esvin Gomes DO [address] [place] [id number] PCP - General Internal Medicine 06/14/22 Additional Source Comments The information contained in this document represents components of the legal health record. It is not the complete legal health record.[facility]
== END 2024-12-28 10:34 | disposition home or self-care (01) ==
LOC: HO.HCS 10:08
PROVIDERS: PCP Physician Assistant Medical; Visit Provider Internal Medicine
DX: I63.9 Cerebral infarction, unspecified (principal); E78.5 Hyperlipidemia, unspecified; Z78.9 Other specified health status
CPT/HCPCS: 93010; 99214; G2211

== ENCOUNTER → 2024-12-28 10:07 | Outpatient (BNVA) | payer MEDICARE, SELFPAY | PROVIDERS: PCP Physician Assistant Medical; Visit Provider Internal Medicine | DX: Z09 Encounter for follow-up examination after completed treatment for conditions other than malignant neoplasm (principal); Z86.73 Personal history of transient ischemic attack (TIA), and cerebral infarction without residual deficits; E78.5 Hyperlipidemia, unspecified; Z78.9 Other specified health status; Z95.818 Presence of other cardiac implants and grafts; Z79.82 Long term (current) use of aspirin | CPT/HCPCS: 93005; 99212 ==

== ENCOUNTER → 2025-01-17 09:24 | Outpatient (BNV) | payer MEDICARE, SELFPAY | PROVIDERS: PCP Physician Assistant Medical; Visit Provider Internal Medicine | DX: I63.9 Cerebral infarction, unspecified (principal); Z95.818 Presence of other cardiac implants and grafts | CPT/HCPCS: 93298 ==

== ENCOUNTER → 2025-02-08 10:05 | Outpatient (BNV) | payer MEDICARE, SELFPAY | PROVIDERS: PCP Physician Assistant Medical; Visit Provider Internal Medicine | DX: I63.9 Cerebral infarction, unspecified (principal) | CPT/HCPCS: 93298 ==